=== PATIENT | male | born 1950 | race Caucasian/White ===

== ENCOUNTER → 2016-11-06 16:33 | Outpatient (CLI) | payer MEDICARE ==
[2015-02-08 08:53] VITALS: BMI 25.9
[~2016-11-06 16:33] MED LIST: ALDACTONE25 MG PO; DECADRON4 MG PO; ELIQUIS2.5 MG PO; ELIQUIS5 MG PO; INDERAL 40 MG T40 MG PO; K-DUR20 MEQ PO; MAG-OX 400 MG400 MG PO; NORVASC5 MG PO
[2016-11-06 20:43] LABS: BASOPHILS 0.1 % (0.0-2.0); EOSINOPHILS 1.5 % (0-7); HEMATOCRIT 42.4 % (42.0-54.0); HEMOGLOBIN 14.4 g/dL (13.5-17.5); IMMATURE GRANULOCYTES 0.8 % (0-5); LYMPHOCYTES 19.2 % (15-50); MEAN PLATELET VOLUME 11.1 fL (7.4-10.4); MONOCYTES 9.2 % (2-11); NEUTROPHILS 69.2 % (40-80); PLATELET COUNT 287 10x3/uL (130-400); RBC 4.37 10x6/uL (4.20-6.10); RDW 12.9 % (11.5-14.5); WBC 13.4 10x3/uL (4.8-10.8)
[2016-11-06 21:16] LABS: ALBUMIN 3.9 g/dL (3.4-5.0); ANION GAP 17.7 mmol/L (8-16); BILIRUBIN - TOTAL 0.52 mg/dL (0.2-1.3); CALCIUM 9.6 mg/dL (8.5-10.1); CARBON DIOXIDE 24.7 mmol/L (21.0-32.0); CREATININE - SERUM 1.1 mg/dL (0.6-1.3); POTASSIUM - SERUM 4.4 mmol/L (3.5-5.1); PROTEIN - SERUM 7.9 g/dL (6.4-8.2)
== END | disposition home or self-care (01) ==
LOC: D.LABREF 16:33
PROVIDERS: Student in an Organized Health Care Education/Training Program
DX: B39.9 Histoplasmosis, unspecified (principal); Z79.899 Other long term (current) drug therapy

== ENCOUNTER → 2016-12-18 20:31 | Outpatient (CLI) | payer MEDICARE ==
[2015-02-08 08:53] VITALS: BMI 25.9
[2016-12-18 21:32] LABS: BASOPHILS 0.2 % (0.0-2.0); EOSINOPHILS 1.9 % (0-7); HEMATOCRIT 42.9 % (42.0-54.0); HEMOGLOBIN 14.2 g/dL (13.5-17.5); IMMATURE GRANULOCYTES 0.8 % (0-5); LYMPHOCYTES 18.4 % (15-50); MCH 32.4 pg (26.0-34.0); MCHC 33.1 g/dL (31.0-37.0); MCV 97.9 fL (80.0-100.0); MEAN PLATELET VOLUME 10.9 fL (7.4-10.4); MONOCYTES 9.4 % (2-11); NEUTROPHILS 69.3 % (40-80); PLATELET COUNT 266 10x3/uL (130-400); RBC 4.38 10x6/uL (4.20-6.10); WBC 12.3 10x3/uL (4.8-10.8)
[2016-12-18 21:44] LABS: HEMOGLOBIN A1C 7.2 % (4.8-6.0)
[2016-12-18 21:45] LABS: ALBUMIN 3.9 g/dL (3.4-5.0); ANION GAP 19.5 mmol/L (8-16); BILIRUBIN - TOTAL 0.56 mg/dL (0.2-1.3); CALCIUM 9.1 mg/dL (8.5-10.1); CARBON DIOXIDE 21.8 mmol/L (21.0-32.0); CREATININE - SERUM 1.2 mg/dL (0.6-1.3); POTASSIUM - SERUM 4.3 mmol/L (3.5-5.1)
== END | disposition home or self-care (01) ==
LOC: D.LABREF 20:31
PROVIDERS: Student in an Organized Health Care Education/Training Program
DX: Z51.81 Encounter for therapeutic drug level monitoring (principal); Z79.899 Other long term (current) drug therapy; Z13.1 Encounter for screening for diabetes mellitus; M79.1 Myalgia; B39.4 Histoplasmosis capsulati, unspecified

== ENCOUNTER → 2017-01-07 10:09 | Outpatient (CLI) | payer MEDICARE ==
[2015-02-08 08:53] VITALS: BMI 25.9
--- NOTE | 2017-01-07 13:31 | NUR ---
Nutrition education for DMT2: Pt reports he eats very erratic most of the time. Pt has been drinking a lot of juice but has now stopped and is drinking water. Pt has been skipping breakfast to try and lose weight. Pt likes nonstarchy vegetables and does eat them but not every day. Pt tries to use an exercise bike daily when he can. Ht: 6'1" Wt: 250# IBW: 184# +/-10% BMI: 33.0 Reviewed CHO containing foods and the affect CHO have on glucose. Reviewed portion sizes of common CHO foods. Stressed the importance of never skipping meals and eating meals about the same time every day. Reviewed sample menus and plate method of meal planning. Pt having difficulty understanding CHO counting. RDN advised to eat at least 3 meals and 1 snack every day but only eat half of what he would normally eat until he read the diet material to understand more about CHO counting. Pt advised that practice will help meal planning become easier. Advised pt that losing at least 25# and keeping it off would help with glucose control. Provided pt with printed diet information and RDN name and phone number. RDN will be available if needed.
== END | disposition home or self-care (01) ==
LOC: D.FANS 10:09
DX: E11.9 Type 2 diabetes mellitus without complications (principal)

== ENCOUNTER → 2017-02-03 10:58 | Outpatient (CLI) | payer MEDICARE ==
[2015-02-08 08:53] VITALS: BMI 25.9
== END | disposition home or self-care (01) ==
LOC: D.MRI 10:58
DX: B39.9 Histoplasmosis, unspecified (principal)

== ENCOUNTER → 2017-02-07 12:55 | Outpatient (CLI) | payer MEDICARE ==
[2015-02-08 08:53] VITALS: BMI 25.9
[2017-02-07 15:56] LABS: BASOPHILS 0.1 % (0-2); EOSINOPHILS 0.8 % (0-7); HEMATOCRIT 41.8 % (42.0-54.0); IMMATURE GRANULOCYTES 0.4 % (0-5); LYMPHOCYTES 9.8 % (15-50); MCH 32.7 pg (26.0-34.0); MCHC 33.5 g/dL (31.0-37.0); MCV 97.7 fL (80.0-100.0); MEAN PLATELET VOLUME 11.3 fL (7.4-10.4); MONOCYTES 8.6 % (2-11); NEUTROPHILS 80.3 % (40-80); PLATELET COUNT 262 10x3/uL (130-400); RBC 4.28 10x6/uL (4.20-6.10); RDW 13.3 % (11.5-14.5); WBC 14.4 10x3/uL (4.8-10.8)
[2017-02-07 16:16] LABS: ALBUMIN 3.7 g/dL (3.4-5.0); ANION GAP 19.9 mmol/L (8-16); BILIRUBIN - TOTAL 0.73 mg/dL (0.2-1.3); CALCIUM 9.8 mg/dL (8.5-10.1); CARBON DIOXIDE 20.3 mmol/L (21.0-32.0); CREATININE - SERUM 1.3 mg/dL (0.6-1.3); POTASSIUM - SERUM 4.2 mmol/L (3.5-5.1); PROTEIN - SERUM 7.8 g/dL (6.4-8.2)
== END | disposition home or self-care (01) ==
LOC: D.LABREF 12:55
PROVIDERS: Student in an Organized Health Care Education/Training Program
DX: B39.9 Histoplasmosis, unspecified (principal); Z79.2 Long term (current) use of antibiotics

== ENCOUNTER → 2017-02-26 08:25 | Outpatient (CLI) | payer MEDICARE ==
[2015-02-08 08:53] VITALS: BMI 25.9
--- NOTE | 2017-02-26 12:38 | NUR ---
Nutrition follow-up education for DMT2: Pt states his glucose numbers are worse now than last month. However, when I questioned him about what he has been doing, he obviously was not following my recommendations from last month. Pt is still eating meals at erratic times and is not paying any attention to portion size. Pt may eat all CHO at one meal and the next meal eat only protein foods. Pt will also eat only a large head of lettuce and tomatoes or a whole package of hot dogs! Pt will not stop talking and listen to me. Reviewed CHO counting again with emphasis on portion size of common CHO foods. Reviewed sample menus with emphasis on CHO. Discussed the importance of eating meals and snacks at consistent times every day. Answered all patients questions. Provided pt with additional diet information and RDN name and phone number. Thank you for the consult.
== END | disposition home or self-care (01) ==
LOC: D.FANS 08:25
DX: E11.9 Type 2 diabetes mellitus without complications (principal)

== ENCOUNTER → 2017-03-18 10:55 | Outpatient (CLI) | payer MEDICARE ==
[2015-02-08 08:53] VITALS: BMI 25.9
[2017-03-18 13:33] LABS: BASOPHILS 0.2 % (0-2); EOSINOPHILS 1.5 % (0-7); HEMATOCRIT 41.3 % (42.0-54.0); HEMOGLOBIN 13.9 g/dL (13.5-17.5); IMMATURE GRANULOCYTES 0.8 % (0-5); LYMPHOCYTES 18.1 % (15-50); MCH 32.3 pg (26.0-34.0); MCHC 33.7 g/dL (31.0-37.0); MCV 95.8 fL (80.0-100.0); MEAN PLATELET VOLUME 11.2 fL (7.4-10.4); MONOCYTES 10.4 % (2-11); PLATELET COUNT 298 10x3/uL (130-400); RBC 4.31 10x6/uL (4.20-6.10); RDW 12.9 % (11.5-14.5); WBC 11.4 10x3/uL (4.8-10.8)
[2017-03-18 13:47] LABS: ALBUMIN 3.6 g/dL (3.4-5.0); ANION GAP 17.5 mmol/L (8-16); APPEARANCE CLEAR (CLEAR); BILIRUBIN - TOTAL 0.36 mg/dL (0.2-1.3); CALCIUM 8.6 mg/dL (8.5-10.1); CARBON DIOXIDE 23.2 mmol/L (21.0-32.0); COLOR YELLOW (YELLOW); CREATININE - SERUM 1.2 mg/dL (0.6-1.3); LEUKOCYTE ESTERASE NEGATIVE (NEGATIVE); NITRITE NEGATIVE (NEGATIVE); POTASSIUM - SERUM 4.7 mmol/L (3.5-5.1); PROTEIN NEGATIVE (NEGATIVE); PROTEIN - SERUM 7.6 g/dL (6.4-8.2)
[2017-03-18 13:48] LABS: BILIRUBIN NEGATIVE (NEGATIVE); GLUCOSE NEGATIVE (NEGATIVE); KETONE NEGATIVE (NEGATIVE); UROBILINOGEN NORMAL (NORMAL)
== END | disposition home or self-care (01) ==
LOC: D.LABREF 10:55
PROVIDERS: Student in an Organized Health Care Education/Training Program
DX: Z51.81 Encounter for therapeutic drug level monitoring (principal); Z79.899 Other long term (current) drug therapy; B39.9 Histoplasmosis, unspecified

== ENCOUNTER → 2017-05-16 18:00 | Outpatient (CLI) | payer MEDICARE ==
[2015-02-08 08:53] VITALS: BMI 25.9
[2017-05-16 19:29] LABS: BASOPHILS 0.2 % (0-2); EOSINOPHILS 1.2 % (0-7); HEMOGLOBIN 14.6 g/dL (13.5-17.5); IMMATURE GRANULOCYTES 0.6 % (0-5); LYMPHOCYTES 19.9 % (15-50); MCHC 33.2 g/dL (31.0-37.0); MCV 96.5 fL (80.0-100.0); MEAN PLATELET VOLUME 11.4 fL (7.4-10.4); MONOCYTES 7.6 % (2-11); NEUTROPHILS 70.5 % (40-80); PLATELET COUNT 294 10x3/uL (130-400); RBC 4.56 10x6/uL (4.20-6.10); RDW 13.7 % (11.5-14.5); WBC 10.8 10x3/uL (4.8-10.8)
[2017-05-16 19:36] LABS: HEMOGLOBIN A1C 6.2 % (4.8-6.0)
[2017-05-16 19:41] LABS: ALBUMIN 4.1 g/dL (3.4-5.0); ANION GAP 18.3 mmol/L (8-16); BILIRUBIN - TOTAL 0.5 mg/dL (0.2-1.3); CALCIUM 9.2 mg/dL (8.5-10.1); CARBON DIOXIDE 22.3 mmol/L (21.0-32.0); CREATININE - SERUM 1.1 mg/dL (0.6-1.3); POTASSIUM - SERUM 4.6 mmol/L (3.5-5.1)
== END | disposition home or self-care (01) ==
LOC: D.LABREF 18:00
PROVIDERS: Student in an Organized Health Care Education/Training Program
DX: B39.9 Histoplasmosis, unspecified (principal); E11.9 Type 2 diabetes mellitus without complications; Z51.81 Encounter for therapeutic drug level monitoring; Z79.899 Other long term (current) drug therapy

== ENCOUNTER → 2017-07-18 11:33 | Outpatient (CLI) | payer MEDICARE ==
[2015-02-08 08:53] VITALS: BMI 25.9
[2017-07-18 12:46] LABS: BASOPHILS 0.1 % (0-2); EOSINOPHILS 1.2 % (0-7); HEMATOCRIT 43.1 % (42.0-54.0); HEMOGLOBIN 14.6 g/dL (13.5-17.5); IMMATURE GRANULOCYTES 0.6 % (0-5); LYMPHOCYTES 19.7 % (15-50); MCH 31.9 pg (26.0-34.0); MCHC 33.9 g/dL (31.0-37.0); MCV 94.1 fL (80.0-100.0); MEAN PLATELET VOLUME 11.2 fL (7.4-10.4); MONOCYTES 8.3 % (2-11); NEUTROPHILS 70.1 % (40-80); PLATELET COUNT 346 10x3/uL (130-400); RBC 4.58 10x6/uL (4.20-6.10); RDW 13.2 % (11.5-14.5); WBC 12.4 10x3/uL (4.8-10.8)
[2017-07-18 13:01] LABS: ALBUMIN 3.9 g/dL (3.4-5.0); ANION GAP 20.2 mmol/L (8-16); BILIRUBIN - TOTAL 0.42 mg/dL (0.2-1.3); CALCIUM 9.3 mg/dL (8.5-10.1); CARBON DIOXIDE 19.6 mmol/L (21.0-32.0); CREATININE - SERUM 1.2 mg/dL (0.6-1.3); POTASSIUM - SERUM 4.8 mmol/L (3.5-5.1); PROTEIN - SERUM 8.2 g/dL (6.4-8.2)
== END | disposition home or self-care (01) ==
LOC: D.LABREF 11:33
PROVIDERS: Student in an Organized Health Care Education/Training Program
DX: B39.9 Histoplasmosis, unspecified (principal); Z51.81 Encounter for therapeutic drug level monitoring; Z79.899 Other long term (current) drug therapy

== ENCOUNTER → 2017-09-08 10:21 | Outpatient (CLI) | payer MEDICARE ==
[2015-02-08 08:53] VITALS: BMI 25.9
== END | disposition home or self-care (01) ==
LOC: D.MRI 10:21
DX: B39.9 Histoplasmosis, unspecified (principal)

== ENCOUNTER → 2017-09-12 10:58 | Outpatient (CLI) | payer MEDICARE ==
[2015-02-08 08:53] VITALS: BMI 25.9
[2017-09-12 14:07] LABS: BASOPHILS 0.1 % (0-2); EOSINOPHILS 0.7 % (0-7); HEMATOCRIT 46.2 % (42.0-54.0); HEMOGLOBIN 15.8 g/dL (13.5-17.5); IMMATURE GRANULOCYTES 1.5 % (0-5); LYMPHOCYTES 19.5 % (15-50); MCH 32.6 pg (26.0-34.0); MCHC 34.2 g/dL (31.0-37.0); MCV 95.5 fL (80.0-100.0); MEAN PLATELET VOLUME 10.9 fL (7.4-10.4); MONOCYTES 7.5 % (2-11); NEUTROPHILS 70.7 % (40-80); PLATELET COUNT 342 10x3/uL (130-400); RBC 4.84 10x6/uL (4.20-6.10); RDW 13.6 % (11.5-14.5); WBC 13.4 10x3/uL (4.8-10.8)
[2017-09-12 14:14] LABS: HEMOGLOBIN A1C 6.3 % (4.8-6.0)
[2017-09-12 14:26] LABS: ALBUMIN 4.3 g/dL (3.4-5.0); ANION GAP 17.2 mmol/L (8-16); BILIRUBIN - TOTAL 0.57 mg/dL (0.2-1.3); CALCIUM 10.1 mg/dL (8.5-10.1); CARBON DIOXIDE 25.4 mmol/L (21.0-32.0); CREATININE - SERUM 1.2 mg/dL (0.6-1.3); POTASSIUM - SERUM 4.6 mmol/L (3.5-5.1); PROTEIN - SERUM 8.3 g/dL (6.4-8.2)
== END | disposition home or self-care (01) ==
LOC: D.LABREF 10:58
PROVIDERS: Student in an Organized Health Care Education/Training Program
DX: B39.9 Histoplasmosis, unspecified (principal)

== ENCOUNTER → 2017-11-11 14:00 | Outpatient (CLI) | payer MEDICARE ==
[2015-02-08 08:53] VITALS: BMI 25.9
[2017-11-11 15:22] LABS: BASOPHILS 0.2 % (0-2); EOSINOPHILS 1.4 % (0-7); HEMOGLOBIN 14.4 g/dL (13.5-17.5); IMMATURE GRANULOCYTES 0.6 % (0-5); MCH 32.5 pg (26.0-34.0); MCHC 33.5 g/dL (31.0-37.0); MCV 97.1 fL (80.0-100.0); MEAN PLATELET VOLUME 11.3 fL (7.4-10.4); MONOCYTES 7.2 % (2-11); NEUTROPHILS 74.6 % (40-80); PLATELET COUNT 288 10x3/uL (130-400); RBC 4.43 10x6/uL (4.20-6.10); RDW 13.3 % (11.5-14.5); WBC 12.9 10x3/uL (4.8-10.8)
[2017-11-11 15:49] LABS: ANION GAP 16.7 mmol/L (8-16); BILIRUBIN - TOTAL 0.51 mg/dL (0.2-1.3); CALCIUM 9.5 mg/dL (8.5-10.1); CREATININE - SERUM 1.1 mg/dL (0.6-1.3); POTASSIUM - SERUM 4.7 mmol/L (3.5-5.1); PROTEIN - SERUM 7.9 g/dL (6.4-8.2)
== END | disposition home or self-care (01) ==
LOC: D.LABREF 14:00
PROVIDERS: Student in an Organized Health Care Education/Training Program
DX: Z51.81 Encounter for therapeutic drug level monitoring (principal); Z79.2 Long term (current) use of antibiotics; G06.0 Intracranial abscess and granuloma

== ENCOUNTER → 2018-01-13 10:22 | Outpatient (CLI) | payer MEDICARE ==
[2015-02-08 08:53] VITALS: BMI 25.9
[2018-01-13 12:00] LABS: BASOPHILS 0.2 % (0-2); EOSINOPHILS 1.8 % (0-7); HEMATOCRIT 42.1 % (42.0-54.0); HEMOGLOBIN 14.3 g/dL (13.5-17.5); IMMATURE GRANULOCYTES 1.3 % (0-5); LYMPHOCYTES 21.4 % (15-50); MCH 32.1 pg (26.0-34.0); MCV 94.4 fL (80.0-100.0); MEAN PLATELET VOLUME 10.8 fL (7.4-10.4); MONOCYTES 9.6 % (2-11); NEUTROPHILS 65.7 % (40-80); PLATELET COUNT 254 10x3/uL (130-400); RBC 4.46 10x6/uL (4.20-6.10); RDW 12.9 % (11.5-14.5); WBC 11.9 10x3/uL (4.8-10.8)
[2018-01-13 12:25] LABS: ALBUMIN 3.7 g/dL (3.4-5.0); ALKALINE PHOSPHATASE 78 U/L (46-116); ALT (SGPT) 37 U/L (10-68); BILIRUBIN - TOTAL 0.41 mg/dL (0.2-1.3); CALC OSMOLALITY 270 mosm/kg (275-300); CALCIUM 8.8 mg/dL (8.5-10.1); CARBON DIOXIDE 21.9 mmol/L (21.0-32.0); CHLORIDE - SERUM 99 mmol/L (98-107); GLUCOSE 112 mg/dL (74-106); POTASSIUM - SERUM 5.2 mmol/L (3.5-5.1); PROTEIN - SERUM 7.8 g/dL (6.4-8.2); SODIUM 133 mmol/L (136-145); UREA NITROGEN 24 mg/dL (7-18); eGFR NON AFRICAN AMERICAN 79 mL/min (90-120)
== END | disposition home or self-care (01) ==
LOC: D.LABREF 10:22
PROVIDERS: Student in an Organized Health Care Education/Training Program
DX: B39.9 Histoplasmosis, unspecified (principal); Z51.81 Encounter for therapeutic drug level monitoring; Z79.899 Other long term (current) drug therapy

== ENCOUNTER → 2018-01-14 09:10 | Outpatient (CLI) | payer MEDICARE ==
[2015-02-08 08:53] VITALS: BMI 25.9
[2018-01-14 10:02] LABS: ALBUMIN 3.7 g/dL (3.4-5.0); BILIRUBIN - TOTAL 0.5 mg/dL (0.2-1.3); CALCIUM 9.2 mg/dL (8.5-10.1); CARBON DIOXIDE 22.3 mmol/L (21.0-32.0); CREATININE - SERUM 1.2 mg/dL (0.6-1.3); POTASSIUM - SERUM 5.3 mmol/L (3.5-5.1); PROTEIN - SERUM 7.7 g/dL (6.4-8.2)
== END | disposition home or self-care (01) ==
LOC: D.LABREF 09:10 → D.LDO 09:10
PROVIDERS: Student in an Organized Health Care Education/Training Program
DX: R79.9 Abnormal finding of blood chemistry, unspecified (principal)

== ENCOUNTER 2018-04-06 05:36 | Day surgery (SDC) | payer MEDICARE ==
[~2018-04-06] VITALS: Ht 190.5 cm; Wt 117.0 kg
--- NOTE | ~2018-04-06 | OP ---
PATIENT NAME: ERENDIRA GONZALEZ MEDICAL RECORD: [id number] :50 LOCATION:[facility] ADMISSION DATE: SURGEON: LOGAN MOORE MD DATE OF OPERATION: 04/06/2018 PREOPERATIVE DIAGNOSIS: Recurrent scrotal abscess. 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 PROCEDURE: Excisional debridement with marsupialization of scrotal fistula. The dimensions of debridement, including margins, measured 7.5 x 3.8 cm. The debridement included skin and subcutaneous tissue as well as granulation tissue. SURGEON: Logan Moore MD DOCTOR CHIROPRACTIC: None. BLOOD LOSS: Minimal. ANESTHESIA: General. COMPLICATIONS: None. I saw the patient in the holding area. He then discussed the fistula in the area of erythema, which appeared to run toward the anus from the fistulous opening, which was on the left hemiscrotum. The area of induration ran down the left side of the peritoneum just to the left of the median raphe. OPERATIVE COURSE: The patient was conveyed the operating room electively on 04/06/2018. General anesthesia was induced by the anesthesia staff. The patient was placed in the lithotomy position. The genitals and perineum were sterilely prepped and draped. I want to ensure that the urethra was not injured during the operation and for this reason I placed a well-lubricated large red rubber Doherty catheter down through the urethra and drained the patient's bladder. I then kept it in place. There was a secondary opening to this fistula and this was near the median raphe. I advanced a fistula probe up through this and this exited at the left hemiscrotum where the patient has had drainage from recurrent abscess. Over the fistula probe, I opened the fistula. This extended down further caudad. I extended my incision for the caudad as well. I then curetted out the granulation tract. Cultures were obtained. At no time was there any apparent injury to the urethra and we did not identify any red rubber Doherty catheter. I continued my curettage. Hemostasis was achieved with electrocautery. I then marsupialized the wound with a running locking 3-0 Vicryl Rapide suture. This has been a sharp debridement. Hemostasis was achieved with electrocautery as well as with Dudley. A sterile dressing was applied. The patient was then extubated and conveyed to post-anesthesia care unit where he was in stable condition. I will be dismissed home on hydrocodone for pain. I will see him in the office in 2 to 3 weeks. OPERATIVE REPORT [id number] LISAERENDIRA FRANSISCO TRANSINT:[id number] Voice Confirmation ID: [id number] DOCUMENT ID: [id number] LOGAN MOORE MD at 1023 CC: [id number] DICTATION DATE: 04/06/18 1126 TOOLROOM CHECKER: 04/06/18 1220 [facility] 04/06/[address] [address]
[~2018-04-06 05:36] MED LIST changes: +BACTRIM DS TABL1 TAB PO
[2018-04-06 06:26] LABS: HEMATOCRIT 41.9 % (42.0-54.0); MCH 31.5 pg (26.0-34.0); MCHC 33.4 g/dL (31.0-37.0); MCV 94.4 fL (80.0-100.0); MEAN PLATELET VOLUME 10.4 fL (7.4-10.4); RBC 4.44 10x6/uL (4.20-6.10); RDW 13.8 % (11.5-14.5); WBC 10.3 10x3/uL (4.8-10.8)
[2018-04-06 06:31] LABS: APPEARANCE CLEAR (CLEAR); BILIRUBIN NEGATIVE (NEGATIVE); COLOR YELLOW (YELLOW); GLUCOSE NEGATIVE (NEGATIVE); KETONE NEGATIVE (NEGATIVE); NITRITE NEGATIVE (NEGATIVE); PROTEIN NEGATIVE (NEGATIVE); UROBILINOGEN NORMAL (NORMAL)
[2018-04-06 06:44] LABS: ANION GAP 12.3 mmol/L (8-16); CALCIUM 9.4 mg/dL (8.5-10.1); CARBON DIOXIDE 28.3 mmol/L (21.0-32.0); CREATININE - SERUM 1.2 mg/dL (0.6-1.3); POTASSIUM - SERUM 4.6 mmol/L (3.5-5.1)
[2018-04-06] MEDS ORDERED: SPORANOX100 MG PO (06:57)
[2018-04-06 07:13] VITALS: BP 135/56; Ht 190.5 cm; Wt 117.0 kg
== END 2018-04-06 12:05 | disposition home or self-care (01) ==
LOC: D.OPS 05:36 → D.PAN 08:00 → D.OPS 08:00
PROVIDERS: Anesthesiology
DX: L02.214 Cutaneous abscess of groin (principal); N50.89 Other specified disorders of the male genital organs; Z01.812 Encounter for preprocedural laboratory examination

== ENCOUNTER → 2018-04-14 09:32 | Outpatient (CLI) | payer MEDICARE ==
[2018-04-06 07:13] VITALS: BMI 32.3
[~2018-04-14 09:32] MED LIST changes: +SPORANOX100 MG PO
== END | disposition home or self-care (01) ==
LOC: D.MRI 02-13 11:00
DX: B39.9 Histoplasmosis, unspecified (principal)

== ENCOUNTER → 2018-04-21 13:45 | Outpatient (CLI) | payer MEDICARE ==
[2018-04-06 07:13] VITALS: BMI 32.3
[2018-04-21 14:35] LABS: ALBUMIN 3.4 g/dL (3.4-5.0); BILIRUBIN - DIRECT 0.08 mg/dL (0.00-0.30); BILIRUBIN - INDIRECT 0.25 mg/dL (0.00-1.00); BILIRUBIN - TOTAL 0.33 mg/dL (0.2-1.3); PROTEIN - SERUM 7.2 g/dL (6.4-8.2)
== END | disposition home or self-care (01) ==
LOC: D.LABREF 13:45
PROVIDERS: Student in an Organized Health Care Education/Training Program
DX: B39.9 Histoplasmosis, unspecified (principal)

== ENCOUNTER → 2018-05-21 13:39 | Outpatient (CLI) | payer MEDICARE ==
[2018-04-06 07:13] VITALS: BMI 32.3
[2018-05-21 15:44] LABS: ALBUMIN 3.5 g/dL (3.4-5.0); BILIRUBIN - DIRECT 0.13 mg/dL (0.00-0.30); BILIRUBIN - INDIRECT 0.22 mg/dL (0.00-1.00); BILIRUBIN - TOTAL 0.35 mg/dL (0.2-1.3); PROTEIN - SERUM 7.5 g/dL (6.4-8.2)
== END | disposition home or self-care (01) ==
LOC: D.LABREF 13:39
PROVIDERS: Student in an Organized Health Care Education/Training Program
DX: B39.9 Histoplasmosis, unspecified (principal)

== ENCOUNTER 2018-06-11 09:38 | Inpatient (IN) | payer MEDICARE ==
[~2018-06-11] VITALS: Ht 190.5 cm; Wt 15.4 kg
--- NOTE | ~2018-06-11 | MORECARE ---
CASE MANAGEMENT DISCHARGE SUMMARY PATIENT: ERENDIRA GONZALEZ UNIT: [id number] ADM DATE: 06/11/18 AGE: 68 : 50 SEX: M ROOM/BED: D.2110 AUTHOR: FLOYD,DOC PHYSICIAN: REFERRING PHYSICIAN: GLADYS THOMAS MD DATE OF SERVICE: 06/16/18 Discharge Plan Patient Name: ERENDIRA GONZALEZ [facility] [facility] 1950 Planned Disposition: Inpatient Rehab Anticipated Discharge Date: 06/17/18 Discharge Date: Expected LOS: 6 Initial Reviewer: [email or web address] Initial Review Date: 06/16/2018 Generated: 06/16/18 5:46 pm Comments DCP- Discharge Planning Updated by [id number]: Hemant Acuna on 06/16/18 3:[address] Patient Name: ERENDIRA GONZALEZ Admission Status: ER Accout number: [id number] Admission Date: 06-11-2018 : 1950 Admission Diagnosis:PELVIC AND PERINEAL PAIN Attending: GLADYS THOMAS Current LOS: 5 Anticipated DC Date: 06-17-2018 Planned Disposition: Inpatient Rehab Primary Insurance: MEDICARE A & B PLANNED EXTERNAL PROVIDER: [facility] INPATIENT REH[facility] Discharge Planning Comments: CM RECEIVED ORDER FOR INPATIENT REHAB PRESCREENING. CM MET WITH PT IN ROOM TO DISCUSS DISCHARGE PLANNING AND NEEDS. PT REPORTS LIVING AT HOME INDEPENDENTLY AND ALONE. PT HAS WALKER AND BLOOD PRESSURE MONITOR AT HOME WITH NO MEDICAL EQUIPMENT PROVIDER, PT HAS PERSONAL CARE WITH [facility] [address], 2 DAYS PER WEEK, 4 HOURS PER DAY BUT IS CERTIFIED BY MEDICAID FOR UP TO 18 HOURS PER WEEK. CM DISCUSSED AVAILABILITY OF HOME HEALTH, REHAB SERVICES AND MEDICAL EQUIPMENT WELL INPATIENT REHAB PROVIDERS AND LOCATIONS. PT WOULD LIKE REHAB AT [place] PRIOR TO RETURNING HOME AND FEELS HE CAN PARTICIPATE WITH THREE HOURS OF PROGRESSIVE THERAPY. PT REPORTS FAMILY WILL PICK HIM UP FOR DISCHARGE HOME. IMPORTANT MESSAGE FROM MEDICARE PROVIDED AND EXPLAINED. CM WAITING MEDICAL STABILITY AND ADMISSION DETERMINATION FROM [facility] INPATIENT [facility]. Rn Transitional: Hemant Acuna DCPIA - Discharge Planning Initial Assessment Updated by [id number]: Hemant Acuna on 06/16/18 4:40 pm * Is the patient Alert and Oriented? Yes * How many steps to enter\exit or inside your home? 15 * PCP DR. THOMAS * Pharmacy [facility] [place] * Preadmission Environment Home Alone * ADLs Independent * Equipment Other Walker * Other Equipment NO MEDICAL EQUIPMENT PROVIDER PREFERENCE * List name and contact numbers for known caregivers / representatives who currently or will assist patient after discharge: ANDERSON GONZALEZ, SON, DONTAE ARNOLD, DTR, * Verbal permission to speak to the caregivers and representatives has been obtained from the patient. N/A * Community resources currently utilized Private Duty Care * Please name any agencies selected above. [facility] [address], 2 DAYS PER WEEK, 4 HOURS DAILY PERSONAL CARE. * Additional services required to return to the preadmission environment? No * Can the patient safely return to the preadmission environment? Yes * Has this patient been hospitalized within the prior 30 days at any hospital? No Coverage Notice Reviewer: [id number] Haylee Acuna Notice Issued Date-Time: 06/16/2018 14:25 Notice Type: IM Discharge Notice Notice Delivered To: Patient Relationship to Patient: Equity Director Name: Delivery Method: HAND - Hand Delivered Allie Days: Prior Verbal Notification: Recipient Understood Notice: Yes Recipient Signature: Yes Med Rec Note Co-signed by Attending: Coverage Notice Comment: Last DP export: 06/16/18 3:36 Patient Name: ERENDIRA GONZALEZ Page 11754 at 1647 All edits/amendments must be made on the electronic document DICTATION DATE: 06/16/181645 BAG REPAIRER: WENDY 06/16/181645 RPT#: [id number] DC DATE: STATUS: ADM IN [facility] [address] [place] [address] END OF REPORT
--- NOTE | ~2018-06-11 | OP ---
PATIENT NAME: ERENDIRA GONZALEZ MEDICAL RECORD: [id number] :50 LOCATION:D.M2 D.2109 ADMISSION DATE:06/11/18 SURGEON: LOGAN MOORE MD DATE OF OPERATION: 06/13/2018 PREOPERATIVE DIAGNOSIS: Perineal abscess. POSTOPERATIVE DIAGNOSES: Perineal abscess with no evidence of an anal fistula or rectal fistula. PROCEDURE: Anal evaluation under anesthesia with excisional debridement of perineal wound with marsupialization and packing of the wound. Dimensions of the sharp excisional debridement, including margins, measured 6.2 x 4.0 cm included skin and subcutaneous tissue as well as abscess cavity. OPERATIVE COURSE: The patient was conveyed to the operating room electively on 06/13/2018. General anesthesia was induced by the anesthesia staff. The patient was placed in the lithotomy position. Cultures were obtained. The anus and perianal areas were sterilely prepped and draped. The patient's prior debridement of a scrotal sinus appears to have been well-healed. There was swelling between the scrotum and the anus and this area had been draining. There were several open areas as well. I inserted the U-shaped anal retractors within the anus. I then injected a combination of hydrogen peroxide and methylene blue through the largest open area. This mixture came out through several other open areas within the skin indicating some connection between this large open area, which was located superiorly and these other open areas. There was no flow of hydrogen peroxide or methylene blue into the anus or rectum and therefore no evidence of an anal or rectal fistula. Utilizing the scalpel, a sharp debridement was undertaken. The dimensions of the debridement are listed above. I debrided back to viable bleeding tissue. I curetted out the abscess cavity. At no time was there any apparent injury to the anal sphincters or to the ureter. Hemostasis was achieved with electrocautery. I irrigated with hydrogen peroxide. I then marsupialized the wound with a running-locking 3-0 Vicryl Rapide suture and then the wound was packed. A sterile dressing was applied. The patient was then extubated and conveyed to post-anesthesia care unit where he was in stable condition. TRANSINT:[id number] Voice Confirmation ID: [id number] DOCUMENT ID: [id number] LOGAN MOORE MD at 1708 CC: GLADYS THOMAS [id number] DICTATION DATE: 06/13/18 0936 FIELD SERVICE TECH: 06/13/18 1051 ADM IN [place] [id number] [place] [id number]
--- NOTE | ~2018-06-11 | MORECARE ---
CASE MANAGEMENT DISCHARGE SUMMARY PATIENT: ERENDIRA GONZALEZ UNIT: [id number] ADM DATE: 06/11/18 AGE: 68 : 50 SEX: M ROOM/BED: D.2110 AUTHOR: THUAN BARRIENTOS PHYSICIAN: REFERRING PHYSICIAN: GLADYS THOMAS MD DATE OF SERVICE: 06/17/18 Discharge Plan Patient Name: ERENDIRA GONZALEZ [facility]:[place] : 1950 Planned Disposition: Inpatient Rehab Anticipated Discharge Date: 06/17/18 Discharge Date: 06/17/2018 Expected LOS: 6 Initial Reviewer: [id number] Initial Review Date: 06/16/2018 Generated: 06/17/18 5:52 pm Comments DCP- Discharge Planning Updated by [id number]: Hemant Acuna on 06/17/18 10:[address] Patient Name: ERENDIRA GONZALEZ Encounter No: [id number] : 1950 Primary Insurance: MEDICARE A & B Anticipated DC Date: 06-17-2018 Planned Disposition: Inpatient Rehab External Planned Provider: [facility] DCP follow-up note: CM RECEIVED DISCHARGE ORDER, SPOKE TO MARGIE OF INPATIENT REHAB, THEY WILL COMPLETE SCREENING TODAY AND PLAN TO ACCEPT PT TODAY FOR REHAB. PT NOTIFIED, IN AGREEMENT WITH DISCHARGE TO INPATIENT REHAB. [facility] IN[facility] TO CONTACT MED 2 NURSE WITH ROOM NUMBER WHEN READY TO ACCEPT PT AND NURSE REPORT. Hemant Acuna, CASE MANAGEMENT DCP- Discharge Planning Updated by [id number]: Hemant Acuna on 06/16/18 3:[address] Patient Name: ERENDIRA GONZALEZ Admission Status: ER Accout number: [id number] Admission Date: 06-11-2018 : 1950 Admission Diagnosis:PELVIC AND PERINEAL PAIN Attending: GLADYS THOMAS Current LOS: 5 Anticipated DC Date: 06-17-2018 Planned Disposition: Inpatient Rehab Primary Insurance: MEDICARE A & B PLANNED EXTERNAL PROVIDER: [facility] IN[facility] Discharge Planning Comments: CM RECEIVED ORDER FOR INPATIENT REHAB PRESCREENING. CM MET WITH PT IN ROOM TO DISCUSS DISCHARGE PLANNING AND NEEDS. PT REPORTS LIVING AT HOME INDEPENDENTLY AND ALONE. PT HAS WALKER AND BLOOD PRESSURE MONITOR AT HOME WITH NO MEDICAL EQUIPMENT PROVIDER, PT HAS PERSONAL CARE WITH [facility] [employer], 2 DAYS PER WEEK, 4 HOURS PER DAY BUT IS CERTIFIED BY MEDICAID FOR UP TO 18 HOURS PER WEEK. CM DISCUSSED AVAILABILITY OF HOME HEALTH, REHAB SERVICES AND MEDICAL EQUIPMENT WELL INPATIENT REHAB PROVIDERS AND LOCATIONS. PT WOULD LIKE REHAB AT [place] PRIOR TO RETURNING HOME AND FEELS HE CAN PARTICIPATE WITH THREE HOURS OF PROGRESSIVE THERAPY. PT REPORTS FAMILY WILL PICK HIM UP FOR DISCHARGE HOME. IMPORTANT MESSAGE FROM MEDICARE PROVIDED AND EXPLAINED. CM WAITING MEDICAL STABILITY AND ADMISSION DETERMINATION FROM [facility]. Senior Sql Server Dba: Hemant Acuna DCPIA - Discharge Planning Initial Assessment Updated by [id number]: Hemant Acuna on 06/16/18 4:40 pm * Is the patient Alert and Oriented? Yes * How many steps to enter\exit or inside your home? 15 * PCP DR. THOMAS * Pharmacy [facility] [place] * Preadmission Environment Home Alone * ADLs Independent * Equipment Other Walker * Other Equipment NO MEDICAL EQUIPMENT PROVIDER PREFERENCE * List name and contact numbers for known caregivers / representatives who currently or will assist patient after discharge: ANDERSON GONZALEZ, SON, DONTAE ARNOLD, DTR, * Verbal permission to speak to the caregivers and representatives has been obtained from the patient. N/A * Community resources currently utilized Private Duty Care * Please name any agencies selected above. [facility] [employer], 2 DAYS PER WEEK, 4 HOURS DAILY PERSONAL CARE. * Additional services required to return to the preadmission environment? No * Can the patient safely return to the preadmission environment? Yes * Has this patient been hospitalized within the prior 30 days at any hospital? No Coverage Notice Reviewer: [id number] - Hemant Acuna Notice Issued Date-Time: 06/16/2018 14:25 Notice Type: IM Discharge Notice Notice Delivered To: Patient Relationship to Patient: Nub Card Tender Name: Delivery Method: HAND - Hand Delivered Allie Days: Prior Verbal Notification: Recipient Understood Notice: Yes Recipient Signature: Yes Med Rec Note Co-signed by Attending: Coverage Notice Comment: Last DP export: 06/17/18 10:37 Patient Name: ERENDIRA GONZALEZ Page 93825 at 1652 All edits/amendments must be made on the electronic document DICTATION DATE: 06/17/181650 MANAGER COSMETIC: WENDY 06/17/181650 RPT#: [id number] DC DATE:06/17/18 STATUS: DIS IN [facility] [address] [place] [address] END OF REPORT
--- NOTE | ~2018-06-11 | MORECARE ---
CASE MANAGEMENT DISCHARGE SUMMARY PATIENT: ERENDIRA GONZALEZ UNIT: [id number] ADM DATE: 06/11/18 AGE: 68 : 50 SEX: M ROOM/BED: D.2110 AUTHOR: THUAN BARRIENTOS PHYSICIAN: REFERRING PHYSICIAN: GLADYS THOMAS MD DATE OF SERVICE: 06/17/18 Discharge Plan Patient Name: ERENDIRA GONZALEZ Facility: [facility]:[place] : 1950 Planned Disposition: Inpatient Rehab Anticipated Discharge Date: 06/17/18 Discharge Date: Expected LOS: 6 Initial Reviewer: [id number] Initial Review Date: 06/16/2018 Generated: 06/17/18 12:37 pm Comments DCP- Discharge Planning Updated by [email or web address]: Hemant Acuna on 06/17/18 10:[address] Patient Name: ERENDIRA GONZALEZ Encounter No: [id number] : 1950 Primary Insurance: MEDICARE A & B Anticipated DC Date: 06-17-2018 Planned Disposition: Inpatient Rehab External Planned Provider: [facility] INPAT[facility] RE[facility] DCP follow-up note: CM RECEIVED DISCHARGE ORDER, SPOKE TO MARGIE OF INPATIENT REHAB, THEY WILL COMPLETE SCREENING TODAY AND PLAN TO ACCEPT PT TODAY FOR REHAB. PT NOTIFIED, IN AGREEMENT WITH DISCHARGE TO INPATIENT REHAB. [facility] INPATIENT REHAB TO CONTACT MED 2 NURSE WITH ROOM NUMBER WHEN READY TO ACCEPT PT AND NURSE REPORT. Hemant Acuna CASE MANAGEMENT DCP- Discharge Planning Updated by [id number]: Hemant Acuna on 06/16/18 3:[address] Patient Name: ERENDIRA GONZALEZ Admission Status: ER Accout number: [id number] Admission Date: 06-11-2018 : 1950 Admission Diagnosis:PELVIC AND PERINEAL PAIN Attending: GLADYS THOMAS Current LOS: 5 Anticipated DC Date: 06-17-2018 Planned Disposition: Inpatient Rehab Primary Insurance: MEDICARE A & B PLANNED EXTERNAL PROVIDER: [facility] IN[facility] Discharge Planning Comments: CM RECEIVED ORDER FOR INPATIENT REHAB PRESCREENING. CM MET WITH PT IN ROOM TO DISCUSS DISCHARGE PLANNING AND NEEDS. PT REPORTS LIVING AT HOME INDEPENDENTLY AND ALONE. PT HAS WALKER AND BLOOD PRESSURE MONITOR AT HOME WITH NO MEDICAL EQUIPMENT PROVIDER, PT HAS PERSONAL CARE WITH [facility], 2 DAYS PER WEEK, 4 HOURS PER DAY BUT IS CERTIFIED BY MEDICAID FOR UP TO 18 HOURS PER WEEK. CM DISCUSSED AVAILABILITY OF HOME HEALTH, REHAB SERVICES AND MEDICAL EQUIPMENT WELL INPATIENT REHAB PROVIDERS AND LOCATIONS. PT WOULD LIKE REHAB AT [place] PRIOR TO RETURNING HOME AND FEELS HE CAN PARTICIPATE WITH THREE HOURS OF PROGRESSIVE THERAPY. PT REPORTS FAMILY WILL PICK HIM UP FOR DISCHARGE HOME. IMPORTANT MESSAGE FROM MEDICARE PROVIDED AND EXPLAINED. CM WAITING MEDICAL STABILITY AND ADMISSION DETERMINATION FROM [facility] INPAT[facility] RE[facility]. Jute Bag Sewer: Hemant Acuna DCPIA - Discharge Planning Initial Assessment Updated by [id number]: Hemant Acuna on 06/16/18 4:40 pm * Is the patient Alert and Oriented? Yes * How many steps to enter\exit or inside your home? 15 * PCP DR. THOMAS * Pharmacy [facility] [place] * Preadmission Environment Home Alone * ADLs Independent * Equipment Other Walker * Other Equipment NO MEDICAL EQUIPMENT PROVIDER PREFERENCE * List name and contact numbers for known caregivers / representatives who currently or will assist patient after discharge: ANDERSON GONZALEZ, SON, DONTAE ARNOLD, DTR, * Verbal permission to speak to the caregivers and representatives has been obtained from the patient. N/A * Community resources currently utilized Private Duty Care * Please name any agencies selected above. [facility] [employer], 2 DAYS PER WEEK, 4 HOURS DAILY PERSONAL CARE. * Additional services required to return to the preadmission environment? No * Can the patient safely return to the preadmission environment? Yes * Has this patient been hospitalized within the prior 30 days at any hospital? No Coverage Notice Reviewer: [id number] - Hemant Acuna Notice Issued Date-Time: 06/16/2018 14:25 Notice Type: IM Discharge Notice Notice Delivered To: Patient Relationship to Patient: Bindery Helper Name: Delivery Method: HAND - Hand Delivered Allie Days: Prior Verbal Notification: Recipient Understood Notice: Yes Recipient Signature: Yes Med Rec Note Co-signed by Attending: Coverage Notice Comment: Last DP export: 06/16/18 3:47 Patient Name: ERENDIRA GONZALEZ Page 22203 at 1137 All edits/amendments must be made on the electronic document DICTATION DATE: 06/17/181136 RECREATION THERAPY TEACHER: DM 06/17/181136 RPT#: [id number] DC DATE: STATUS: ADM IN [facility] [address] [place] [address] END OF REPORT
--- NOTE | ~2018-06-11 | MORECARE ---
CASE MANAGEMENT DISCHARGE SUMMARY PATIENT: ERENDIRA GONZALEZ UNIT: [id number] ADM DATE: 06/11/18 AGE: 68 : 50 SEX: M ROOM/BED: D.2110 AUTHOR: THUAN BARRIENTOS PHYSICIAN: REFERRING PHYSICIAN: GLADYS THOMAS MD DATE OF SERVICE: 06/16/18 Discharge Plan Patient Name: ERENDIRA GONZALEZ Facility: [facility]:[place] : 1950 Planned Disposition: Inpatient Rehab Anticipated Discharge Date: 06/17/18 Discharge Date: Expected LOS: 6 Initial Reviewer: [id number] Initial Review Date: 06/16/2018 Generated: 06/16/18 5:36 pm Coverage Notice Reviewer: [id number] - Hemant Acuna Notice Issued Date-Time: 06/16/2018 14:25 Notice Type: IM Discharge Notice Notice Delivered To: Patient Relationship to Patient: Video Tape Duplicator Name: Delivery Method: HAND - Hand Delivered Allie Days: Prior Verbal Notification: Recipient Understood Notice: Yes Recipient Signature: Yes Med Rec Note Co-signed by Attending: Coverage Notice Comment: Patient Name: ERENDIRA GONZALEZ Page 52368 at 1636 All edits/amendments must be made on the electronic document DICTATION DATE: 06/16/181634 BEAD FLIPPER: WENDY 06/16/18 163 RPT#: [id number] DC DATE: STATUS: ADM IN [place] [address] [place] [address] END OF REPORT
[2018-06-11 10:58] LABS: ANION GAP 20.2 mmol/L (8-16); BILIRUBIN - TOTAL 0.66 mg/dL (0.2-1.3); CALCIUM 8.9 mg/dL (8.5-10.1); CARBON DIOXIDE 19.4 mmol/L (21.0-32.0); CREATININE - SERUM 1.9 mg/dL (0.6-1.3); POTASSIUM - SERUM 3.6 mmol/L (3.5-5.1); PROTEIN - SERUM 7.4 g/dL (6.4-8.2)
[2018-06-11 11:00] LABS: HEMATOCRIT 39.4 % (42.0-54.0); HEMOGLOBIN 13.6 g/dL (13.5-17.5); MCH 32.4 pg (26.0-34.0); MCHC 34.5 g/dL (31.0-37.0); MCV 93.8 fL (80.0-100.0); MEAN PLATELET VOLUME 11.1 fL (7.4-10.4); PLATELET COUNT 202 10x3/uL (130-400); RDW 13.7 % (11.5-14.5); WBC 28.1 10x3/uL (4.8-10.8)
[2018-06-11 11:17] LABS: APPEARANCE CLEAR (CLEAR); BILIRUBIN NEGATIVE (NEGATIVE); COLOR YELLOW (YELLOW); GLUCOSE NEGATIVE (NEGATIVE); KETONE NEGATIVE (NEGATIVE); NITRITE NEGATIVE (NEGATIVE); PROTEIN 3+ mg/dL (NEGATIVE); SPECIFIC GRAVITY 1.015 (1.005-1.020); UROBILINOGEN NORMAL (NORMAL)
[2018-06-11 11:18] LABS: BACTERIA FEW /hpf (NONE SEEN); EPITHELIAL CELLS 0-5 /hpf (0-5); MUCUS <1+ /lpf (NONE SEEN); RED CELLS - URINE 0-5 /hpf (0-5); WHITE CELLS - URINE 0-5 /hpf (0-5)
[2018-06-11 11:20] LABS: LYMPHOCYTES 4 % (15-50); MONOCYTES 10 % (2-11); NEUTROPHILS 71 % (40-80); PLATELET ESTIMATE NORMAL
[2018-06-11] MEDS ORDERED: NORVASC5 MG PO (17:32)
[2018-06-11 17:33] VITALS: BP 101/53
[2018-06-11 23:12] VITALS: BP 121/61
[2018-06-12 02:38] VITALS: BP 105/48
[2018-06-12 05:09] LABS: BASOPHILS 0.2 % (0-2); EOSINOPHILS 0.9 % (0-7); HEMATOCRIT 38.2 % (42.0-54.0); HEMOGLOBIN 12.7 g/dL (13.5-17.5); IMMATURE GRANULOCYTES 2.6 % (0-5); LYMPHOCYTES 5.5 % (15-50); MCH 31.9 pg (26.0-34.0); MCHC 33.2 g/dL (31.0-37.0); MEAN PLATELET VOLUME 10.9 fL (7.4-10.4); MONOCYTES 6.8 % (2-11); PLATELET COUNT 151 10x3/uL (130-400); RBC 3.98 10x6/uL (4.20-6.10); RDW 14.1 % (11.5-14.5); WBC 18.9 10x3/uL (4.8-10.8)
[2018-06-12 05:25] LABS: ALBUMIN 2.5 g/dL (3.4-5.0); BILIRUBIN - TOTAL 0.61 mg/dL (0.2-1.3); CALCIUM 8.4 mg/dL (8.5-10.1); CREATININE - SERUM 1.6 mg/dL (0.6-1.3); POTASSIUM - SERUM 3.8 mmol/L (3.5-5.1)
[2018-06-12 05:27] LABS: ANION GAP 13.5 mmol/L (8-16); CARBON DIOXIDE 24.3 mmol/L (21.0-32.0)
[2018-06-12 06:07] VITALS: BP 99/43
[2018-06-12 08:00] VITALS: BP 111/52
[2018-06-12 10:36] VITALS: BMI 33.7
[2018-06-12 16:25] VITALS: Ht 190.5 cm; Wt 15.4 kg
[2018-06-12 20:00] VITALS: BP 96/37
[2018-06-13] VITALS: BP 123/53
[2018-06-13 04:00] VITALS: BP 117/54
[2018-06-13 05:23] LABS: BASOPHILS 0.2 % (0-2); EOSINOPHILS 1.6 % (0-7); HEMATOCRIT 38.7 % (42.0-54.0); HEMOGLOBIN 12.8 g/dL (13.5-17.5); LYMPHOCYTES 7.3 % (15-50); MCH 31.9 pg (26.0-34.0); MCHC 33.1 g/dL (31.0-37.0); MCV 96.5 fL (80.0-100.0); MEAN PLATELET VOLUME 11.9 fL (7.4-10.4); MONOCYTES 8.5 % (2-11); NEUTROPHILS 81.4 % (40-80); PLATELET COUNT 144 10x3/uL (130-400); RBC 4.01 10x6/uL (4.20-6.10); RDW 13.9 % (11.5-14.5); WBC 18.7 10x3/uL (4.8-10.8)
[2018-06-13 05:36] LABS: ANION GAP 12.4 mmol/L (8-16); CALCIUM 8.3 mg/dL (8.5-10.1); CARBON DIOXIDE 24.5 mmol/L (21.0-32.0); CREATININE - SERUM 1.3 mg/dL (0.6-1.3); POTASSIUM - SERUM 3.9 mmol/L (3.5-5.1)
[2018-06-13 08:39] VITALS: BP 122/58
[2018-06-13 14:56] VITALS: BP 121/50
[2018-06-13 20:00] VITALS: BP 104/55
[2018-06-14] VITALS: BP 141/60
[2018-06-14 04:00] VITALS: BP 133/59
[2018-06-14 06:06] LABS: BASOPHILS 0.3 % (0-2); EOSINOPHILS 1.3 % (0-7); HEMATOCRIT 40.2 % (42.0-54.0); HEMOGLOBIN 13.4 g/dL (13.5-17.5); IMMATURE GRANULOCYTES 1.8 % (0-5); LYMPHOCYTES 9.8 % (15-50); MCH 32.4 pg (26.0-34.0); MCHC 33.3 g/dL (31.0-37.0); MCV 97.3 fL (80.0-100.0); MEAN PLATELET VOLUME 11.3 fL (7.4-10.4); MONOCYTES 8.5 % (2-11); NEUTROPHILS 78.3 % (40-80); PLATELET COUNT 157 10x3/uL (130-400); RBC 4.13 10x6/uL (4.20-6.10); RDW 13.9 % (11.5-14.5); WBC 14.3 10x3/uL (4.8-10.8)
[2018-06-14 07:04] LABS: ANION GAP 15.8 mmol/L (8-16); CALCIUM 8.6 mg/dL (8.5-10.1); CARBON DIOXIDE 22.4 mmol/L (21.0-32.0); CREATININE - SERUM 1.2 mg/dL (0.6-1.3); POTASSIUM - SERUM 4.2 mmol/L (3.5-5.1)
[2018-06-14 08:34] VITALS: BP 124/61
[2018-06-14 12:12] VITALS: BP 122/59
[2018-06-14 15:14] VITALS: BP 120/64
[2018-06-14 20:00] VITALS: BP 137/68
[2018-06-15] VITALS: BP 125/62
[2018-06-15 04:00] VITALS: BP 134/70
[2018-06-15 09:54] VITALS: BP 148/69
[2018-06-15 11:39] VITALS: BP 127/64
[2018-06-15 15:25] VITALS: BP 128/61
[2018-06-15 20:44] VITALS: BP 135/55
[2018-06-16 00:25] VITALS: BP 132/60
[2018-06-16 04:00] VITALS: BP 134/66
[2018-06-16 05:53] LABS: BASOPHILS 0.2 % (0-2); EOSINOPHILS 2.7 % (0-7); HEMATOCRIT 39.9 % (42.0-54.0); HEMOGLOBIN 13.1 g/dL (13.5-17.5); LYMPHOCYTES 21.4 % (15-50); MCH 31.6 pg (26.0-34.0); MCHC 32.8 g/dL (31.0-37.0); MCV 96.4 fL (80.0-100.0); MEAN PLATELET VOLUME 11.3 fL (7.4-10.4); MONOCYTES 10.6 % (2-11); NEUTROPHILS 59.1 % (40-80); RBC 4.14 10x6/uL (4.20-6.10); RDW 13.7 % (11.5-14.5)
[2018-06-16 06:05] LABS: PLATELET COUNT 215 10x3/uL (130-400); WBC 8.7 10x3/uL (4.8-10.8)
[2018-06-16 06:07] LABS: ANION GAP 15.6 mmol/L (8-16); CALCIUM 8.9 mg/dL (8.5-10.1); CARBON DIOXIDE 24.8 mmol/L (21.0-32.0); CREATININE - SERUM 1.3 mg/dL (0.6-1.3)
[2018-06-16 06:10] LABS: POTASSIUM - SERUM 3.4 mmol/L (3.5-5.1)
[2018-06-16 08:21] VITALS: BP 132/66
[2018-06-16 11:43] VITALS: BP 163/58
[2018-06-16 16:00] VITALS: BP 150/60
[2018-06-16 21:48] VITALS: BP 127/59
[2018-06-17 00:02] VITALS: BP 138/65
[2018-06-17 04:47] LABS: BASOPHILS 0.4 % (0-2); HEMATOCRIT 39.7 % (42.0-54.0); HEMOGLOBIN 13.2 g/dL (13.5-17.5); IMMATURE GRANULOCYTES 6.2 % (0-5); MCH 32.2 pg (26.0-34.0); MCHC 33.2 g/dL (31.0-37.0); MCV 96.8 fL (80.0-100.0); MEAN PLATELET VOLUME 10.9 fL (7.4-10.4); MONOCYTES 9.6 % (2-11); NEUTROPHILS 60.8 % (40-80); PLATELET COUNT 258 10x3/uL (130-400); RDW 13.7 % (11.5-14.5); WBC 9.8 10x3/uL (4.8-10.8)
[2018-06-17 05:11] LABS: CALCIUM 8.8 mg/dL (8.5-10.1); CREATININE - SERUM 1.3 mg/dL (0.6-1.3)
[2018-06-17 05:25] VITALS: BP 131/66
[2018-06-17] MEDS ORDERED: HYDROCODON-ACE1 EAC7 PO (07:32)
[2018-06-17] MEDS ORDERED: FLORAJEN3 CAPS460 MG PO (07:33)
[2018-06-17] MEDS ORDERED: LOMOTIL 2.5-0.1 EAC1 PO (07:33)
[2018-06-17] MEDS ORDERED: AUGMENTIN 875-11 TAB PO (07:35)
[2018-06-17 08:17] VITALS: BP 117/64
[2018-06-17 11:55] VITALS: BP 122/44
== END 2018-06-17 15:13 | DRG 570 ==
LOC: D.ER 09:38 → D.EDHOLD 12:26 → D.M2 12:26 → D.EDHOLD 13:41 → D.M2 14:31
PROVIDERS: Family Medicine; Surgery
PROC: 0JBB0ZZ Excision of Perineum Subcutaneous Tissue and Fascia, Open Approach (ICD-10-PCS; principal; 2018-06-13 08:00)
DX: L02.215 Cutaneous abscess of perineum (principal); J18.9 Pneumonia, unspecified organism; J44.1 Chronic obstructive pulmonary disease with (acute) exacerbation; J44.0 Chronic obstructive pulmonary disease with (acute) lower respiratory infection; J98.11 Atelectasis; J95.89 Other postprocedural complications and disorders of respiratory system, not elsewhere classified; E11.9 Type 2 diabetes mellitus without complications; I10 Essential (primary) hypertension; W18.2XXA Fall in (into) shower or empty bathtub, initial encounter; Y92.012 Bathroom of single-family (private) house as the place of occurrence of the external cause; R09.02 Hypoxemia; E88.09 Other disorders of plasma-protein metabolism, not elsewhere classified; B39.9 Histoplasmosis, unspecified; Y95 Nosocomial condition

== ENCOUNTER 2018-06-17 15:44 | Inpatient (IN) | payer MEDICARE ==
[~2018-06-17] VITALS: Ht 190.5 cm; Wt 115.7 kg
--- NOTE | ~2018-06-17 | RHP ---
PATIENT: ERENDIRA GONZALEZ MEDICAL RECORD: [id number] ACCOUNT: [id number] LOCATION:[facility]1114 : 50 ADMISSION DATE: 06/17/18 REHABILITATION HISTORY AND PHYSICAL EXAMINATION POST ADMISSION PHYSICIAN EXAMINATION POST-ADMISSION PHYSICAL EXAMINATION AND HISTORY AND PHYSICAL DATE OF ADMISSION TO THE REHAB: 06/17/2018 ADMITTING DIAGNOSIS: Acute exacerbation of chronic obstructive pulmonary disease. HISTORY OF PRESENT ILLNESS: The patient is a gentleman, who is admitted to the inpatient rehab with acute exacerbation of COPD. A 68-year-old gentleman admitted to the acute hospital after a fall and hip contusion. He was noted to have leukocytosis of 28,000 with a perineal abscess and was started on IV antibiotics. Dr. Tatum was consulted. He had an abscess about a month ago. He had an I&D per Dr. Tatum. He went to surgery on 06/11, had postop complication, respiratory distress, and hypoxia. Pulmonary was consulted. He was found to have bilateral left lower lobe atelectasis versus infiltrates and then requiring high-flow O2. He has got a past medical history of histoplasmosis, abscesses of the brain, on chronic antifungal therapy, hypertension, coronary artery disease, status post PTCA and stent, history of peripheral vascular disease, recent history of perineal abscess with I&D. The patient quit smoking approximately 3 years ago, was 3 packs per day, he started at 16. He continues to require increased amount of supplemental oxygen and has no home oxygen set up at this time. He is debilitated. He has impaired physical mobility, weakness, shortness of breath, dyspnea on exertion, self-care deficit. Also monitoring a perineal abscess that has reoccurred. He is on IV antibiotics. These are all barriers to discharge home. He lives at home alone. His son and daughter come and check on him. He was moderately independent with mobility with rolling walker. Moderately independent with ADLs. Currently set up for max assist for ADLs and mod-to-max assist for mobility. He plans to return home at his prior level of functioning or better after this acute inpatient stay. Comorbidities in this patient include COPD, obstructive sleep apnea, left lower lobe versus right lower lobe hospital-acquired pneumonia versus atelectasis. He has got leukocytosis, hypertension, coronary artery disease, peripheral vascular disease, history of histoplasmosis, elevated glucose, hypoalbuminemia, elevated LFTs, elevated serum creatinine, chronic hypertension, and past tobacco use. PAST MEDICAL HISTORY: Significant for neuropathy, fungus, hard of hearing, mass on his kidney, hypertension, peripheral vascular disease, coronary artery disease, chronic back pain, bruising, and past tobacco use. PAST SURGICAL HISTORY: Includes brain biopsy, iliac stents, angioplasty with stent placement. ALLERGIES: ALTACE AND METFORMIN. CURRENT MEDICATIONS: Include Floranex 460 mg daily, spironolactone 25 mg b.i.d., propranolol 40 mg b.i.d., Sporanox 300 mg b.i.d., [place] 5/325 one tab every 3 hours p.r.n., Lomotil 2 tabs every 6 hours p.r.n., Augmentin 875/125 one HISTORY AND PHYSICAL [id number] ERENDIRA GONZALEZ tab b.i.d., and Norvasc 5 mg at bedtime. HABITS: Does have a history of tobacco use, quit approximately 3 years ago. FAMILY HISTORY: Noncontributory. SOCIAL HISTORY: The patient hopes to return back home and get back to his prior level of functioning. REVIEW OF SYSTEMS: GENERAL: Does complain of weakness and fatigue. HEENT: Denies cold, cough, or congestion. CARDIOVASCULAR: Denies chest pain. PHYSICAL EXAMINATION: VITAL SIGNS: Stable, afebrile. GENERAL: A morbidly obese gentleman, alert upon exam. HEENT: Normocephalic and atraumatic. Mucosa moist. NECK: Supple. No lymphadenopathy. LUNGS: Clear at this time in the upper adams. He does have decreased breath sounds in the bases. CARDIOVASCULAR: Regular rate and rhythm. ABDOMEN: Benign. Does have noted surgical areas below his umbilical area down to the perineum. EXTREMITIES: No clubbing or cyanosis. Does have some edema. NEUROLOGIC: He does have noted weakness. LABORATORY DATA: White count is 10.3, H&H of 12.7 and 38.3, and platelet count of 324. Sodium 139, potassium 3.7, BUN and creatinine of 16 and 1.3, and blood sugar is noted to be 175. ASSESSMENT: This is a 68-year-old gentleman admitted to the rehab with a working diagnosis of debility secondary to exacerbation of chronic obstructive pulmonary disease and also a perineal abscess. The patient has potential to make improvement. We will institute following multidisciplinary therapies including, but not limited to, physical, occupational, respiratory, speech, nutritional services, prosthetics and orthotics. Given his complex medical condition and risks for more complications, rehabilitation services cannot be provided at a low level of care such as assisted facility. PLAN: 1. Admit to [facility] for intensive inpatient therapy to include the following disciplines: A. Physical therapy to improve gait, all transfer skills, and bed mobility to a modified independent level. B. Occupational therapy to improve activities of daily living to a modified independent level. C. Case management to assist with discharge planning and placement options. D. Nutrition to assist with nutritional needs. E. Rehabilitation nursing to assist in monitoring the patient's underlying medical conditions and to assist with any type of bowel or bladder management. 2. The patient's current medication and medical care will be continued. 3. The patient will be placed on standard fall precautions. 4. The patient estimated length of stay is approximately 7-10 days. 5. Discuss this patient during care team staff meeting this week. HISTORY AND PHYSICAL [id number] ERENDIRA GONZALEZ TRANSINT:[id number] Voice Confirmation ID: [id number] DOCUMENT ID: [id number] COMFORT notes whether there has been none or any medical/functional change since admission: - No change since prescreen. COMFORT attests patient continues to be appropriate for IRF: - Continues to be appropriate. ELMER FINK MD at 1812 CC: [id number] DICTATION DATE: 06/18/1828 MANDREL PRESS HAND: 06/18/18 1014 ADM IN [facility] [address] [id number]
[~2018-06-17 15:44] MED LIST changes: +AUGMENTIN 875-11 TAB PO; +FLORAJEN3 CAPS460 MG PO; +HYDROCODON-ACE1 EAC7 PO; +LOMOTIL 2.5-0.1 EAC1 PO
[2018-06-17 16:24] VITALS: BP 144/72; BMI 31.9
[2018-06-17 19:00] VITALS: BP 113/68
[2018-06-18 06:22] LABS: BASOPHILS 0.2 % (0-2); EOSINOPHILS 1.8 % (0-7); HEMATOCRIT 38.3 % (42.0-54.0); HEMOGLOBIN 12.7 g/dL (13.5-17.5); IMMATURE GRANULOCYTES 2.8 % (0-5); LYMPHOCYTES 17.3 % (15-50); MCH 31.9 pg (26.0-34.0); MCHC 33.2 g/dL (31.0-37.0); MCV 96.2 fL (80.0-100.0); MEAN PLATELET VOLUME 11.1 fL (7.4-10.4); MONOCYTES 7.2 % (2-11); NEUTROPHILS 70.7 % (40-80); RBC 3.98 10x6/uL (4.20-6.10); RDW 13.7 % (11.5-14.5); WBC 10.3 10x3/uL (4.8-10.8)
[2018-06-18 06:28] LABS: PLATELET COUNT 324 10x3/uL (130-400)
[2018-06-18 06:45] LABS: ANION GAP 14.7 mmol/L (8-16); CREATININE - SERUM 1.3 mg/dL (0.6-1.3); POTASSIUM - SERUM 3.7 mmol/L (3.5-5.1)
[2018-06-18 08:00] VITALS: BP 168/80
[2018-06-18 14:30] VITALS: Ht 190.5 cm; Wt 115.7 kg
[2018-06-18 19:00] VITALS: BP 149/67
[2018-06-19 06:17] LABS: BASOPHILS 0.2 % (0-2); EOSINOPHILS 1.3 % (0-7); HEMATOCRIT 38.4 % (42.0-54.0); HEMOGLOBIN 12.8 g/dL (13.5-17.5); IMMATURE GRANULOCYTES 1.8 % (0-5); LYMPHOCYTES 20.1 % (15-50); MCH 32.1 pg (26.0-34.0); MCHC 33.3 g/dL (31.0-37.0); MCV 96.2 fL (80.0-100.0); MEAN PLATELET VOLUME 10.8 fL (7.4-10.4); MONOCYTES 7.1 % (2-11); NEUTROPHILS 69.5 % (40-80); PLATELET COUNT 325 10x3/uL (130-400); RBC 3.99 10x6/uL (4.20-6.10); RDW 13.7 % (11.5-14.5); WBC 9.9 10x3/uL (4.8-10.8)
[2018-06-19 06:40] LABS: ANION GAP 12.9 mmol/L (8-16); CALCIUM 8.5 mg/dL (8.5-10.1); CARBON DIOXIDE 23.9 mmol/L (21.0-32.0); CREATININE - SERUM 1.3 mg/dL (0.6-1.3); POTASSIUM - SERUM 3.8 mmol/L (3.5-5.1)
[2018-06-19 08:00] VITALS: BP 136/75
[2018-06-19 19:00] VITALS: BP 163/77
[2018-06-20 08:00] VITALS: BP 131/59
[2018-06-20 19:30] VITALS: BP 124/65
[2018-06-21 08:57] VITALS: BP 161/70
[2018-06-21 20:11] VITALS: BP 125/53
[2018-06-22 05:44] LABS: BASOPHILS 0.2 % (0-2); EOSINOPHILS 2.1 % (0-7); HEMATOCRIT 40.4 % (42.0-54.0); HEMOGLOBIN 13.5 g/dL (13.5-17.5); IMMATURE GRANULOCYTES 0.5 % (0-5); LYMPHOCYTES 23.1 % (15-50); MCH 32.1 pg (26.0-34.0); MCHC 33.4 g/dL (31.0-37.0); MONOCYTES 9.6 % (2-11); NEUTROPHILS 64.5 % (40-80); RBC 4.21 10x6/uL (4.20-6.10); RDW 13.6 % (11.5-14.5); WBC 8.7 10x3/uL (4.8-10.8)
[2018-06-22 05:45] LABS: PLATELET COUNT 394 10x3/uL (130-400)
[2018-06-22 06:02] LABS: ANION GAP 17.1 mmol/L (8-16); CALCIUM 10.1 mg/dL (8.5-10.1); CARBON DIOXIDE 23.2 mmol/L (21.0-32.0); CREATININE - SERUM 1.2 mg/dL (0.6-1.3); POTASSIUM - SERUM 4.3 mmol/L (3.5-5.1)
[2018-06-22 08:00] VITALS: BP 157/76
[2018-06-22 19:00] VITALS: BP 127/65
[2018-06-23 19:00] VITALS: BP 146/67
[2018-06-24 07:17] LABS: BASOPHILS 0.5 % (0-2); EOSINOPHILS 2.7 % (0-7); HEMATOCRIT 41.9 % (42.0-54.0); IMMATURE GRANULOCYTES 0.5 % (0-5); MCH 32.1 pg (26.0-34.0); MCHC 33.4 g/dL (31.0-37.0); MCV 96.1 fL (80.0-100.0); MEAN PLATELET VOLUME 10.4 fL (7.4-10.4); MONOCYTES 9.6 % (2-11); NEUTROPHILS 59.7 % (40-80); PLATELET COUNT 387 10x3/uL (130-400); RBC 4.36 10x6/uL (4.20-6.10); RDW 13.3 % (11.5-14.5); WBC 8.6 10x3/uL (4.8-10.8)
[2018-06-24 07:31] LABS: ANION GAP 17.4 mmol/L (8-16); CALCIUM 9.9 mg/dL (8.5-10.1); CARBON DIOXIDE 21.2 mmol/L (21.0-32.0); CREATININE - SERUM 1.2 mg/dL (0.6-1.3); POTASSIUM - SERUM 4.6 mmol/L (3.5-5.1)
[2018-06-24 19:00] VITALS: BP 132/65
[2018-06-25 08:00] VITALS: BP 126/70
[2018-06-25 19:00] VITALS: BP 124/51
[2018-06-26 07:07] LABS: HEMATOCRIT 43.1 % (42.0-54.0); HEMOGLOBIN 14.6 g/dL (13.5-17.5); LYMPHOCYTES 31.1 % (15-50); MCH 31.3 pg (26.0-34.0); MCHC 33.9 g/dL (31.0-37.0); MEAN PLATELET VOLUME 11.3 fL (7.4-10.4); NEUTROPHILS 54.7 % (40-80); RBC 4.66 10x6/uL (4.20-6.10); RDW 13.2 % (11.5-14.5); WBC 8.1 10x3/uL (4.8-10.8)
[2018-06-26 07:10] LABS: MCV 92.5 fL (80.0-100.0); PLATELET COUNT 267 10x3/uL (130-400)
[2018-06-26 07:18] LABS: ANION GAP 17.7 mmol/L (8-16); CALCIUM 9.7 mg/dL (8.5-10.1); CARBON DIOXIDE 21.2 mmol/L (21.0-32.0); CREATININE - SERUM 1.3 mg/dL (0.6-1.3); POTASSIUM - SERUM 4.9 mmol/L (3.5-5.1)
[2018-06-26 08:00] VITALS: BP 149/70
[2018-06-26 20:19] VITALS: BP 107/45
[2018-06-26 21:41] VITALS: BP 107/45
[2018-06-27 14:09] VITALS: BP 140/59
[2018-06-27 21:17] VITALS: BP 136/62
[2018-06-28 09:22] VITALS: BP 135/71
[2018-06-28 20:55] VITALS: BP 118/54
[2018-06-29 06:20] LABS: BASOPHILS 0.9 % (0-2); EOSINOPHILS 4.9 % (0-7); HEMATOCRIT 40.3 % (42.0-54.0); HEMOGLOBIN 13.6 g/dL (13.5-17.5); IMMATURE GRANULOCYTES 0.3 % (0-5); LYMPHOCYTES 32.2 % (15-50); MCH 32.4 pg (26.0-34.0); MCHC 33.7 g/dL (31.0-37.0); MEAN PLATELET VOLUME 10.7 fL (7.4-10.4); MONOCYTES 16.3 % (2-11); NEUTROPHILS 45.4 % (40-80); PLATELET COUNT 288 10x3/uL (130-400); RDW 13.3 % (11.5-14.5); WBC 6.5 10x3/uL (4.8-10.8)
[2018-06-29 06:39] LABS: ANION GAP 14.3 mmol/L (8-16); CALCIUM 9.1 mg/dL (8.5-10.1); CARBON DIOXIDE 23.9 mmol/L (21.0-32.0); CREATININE - SERUM 1.3 mg/dL (0.6-1.3); POTASSIUM - SERUM 4.2 mmol/L (3.5-5.1)
[2018-06-29 07:46] VITALS: BP 137/65
[2018-06-29 19:00] VITALS: BP 125/62
[2018-06-30 07:59] VITALS: BP 117/67
[2018-06-30] MEDS ORDERED: GLIMEPIRIDE1 MG PO (08:33)
== END 2018-06-30 12:00 | disposition home health service (06) | DRG 947 ==
LOC: D.REHAB 15:44
PROVIDERS: Emergency Medicine
DX: R53.81 Other malaise (principal); J96.01 Acute respiratory failure with hypoxia; J44.1 Chronic obstructive pulmonary disease with (acute) exacerbation; J90 Pleural effusion, not elsewhere classified; N17.9 Acute kidney failure, unspecified; G47.33 Obstructive sleep apnea (adult) (pediatric); D72.829 Elevated white blood cell count, unspecified; I10 Essential (primary) hypertension; I25.10 Atherosclerotic heart disease of native coronary artery without angina pectoris; I73.9 Peripheral vascular disease, unspecified; Z87.891 Personal history of nicotine dependence; E88.09 Other disorders of plasma-protein metabolism, not elsewhere classified; R79.89 Other specified abnormal findings of blood chemistry; E11.65 Type 2 diabetes mellitus with hyperglycemia

== ENCOUNTER → 2018-07-29 18:05 | Outpatient (CLI) | payer MEDICARE ==
[2018-06-18 14:30] VITALS: BMI 31.8
[~2018-07-29 18:05] MED LIST changes: +GLIMEPIRIDE1 MG PO
[2018-07-29 19:18] LABS: BASOPHILS 0.2 % (0-2); EOSINOPHILS 2.5 % (0-7); HEMATOCRIT 41.3 % (42.0-54.0); HEMOGLOBIN 14.2 g/dL (13.5-17.5); IMMATURE GRANULOCYTES 0.7 % (0-5); LYMPHOCYTES 25.1 % (15-50); MCH 32.3 pg (26.0-34.0); MCHC 34.4 g/dL (31.0-37.0); MCV 93.9 fL (80.0-100.0); MEAN PLATELET VOLUME 10.4 fL (7.4-10.4); MONOCYTES 11.2 % (2-11); NEUTROPHILS 60.3 % (40-80); PLATELET COUNT 271 10x3/uL (130-400); RDW 13.7 % (11.5-14.5); WBC 11.3 10x3/uL (4.8-10.8)
[2018-07-29 19:53] LABS: ALBUMIN 3.6 g/dL (3.4-5.0); ALKALINE PHOSPHATASE 99 U/L (46-116); ALT (SGPT) 57 U/L (10-68); BILIRUBIN - TOTAL 0.28 mg/dL (0.2-1.3); CALC OSMOLALITY 272 mosm/kg (275-300); CALCIUM 8.6 mg/dL (8.5-10.1); CARBON DIOXIDE 20.9 mmol/L (21.0-32.0); CHLORIDE - SERUM 102 mmol/L (98-107); GLUCOSE 124 mg/dL (74-106); POTASSIUM - SERUM 4.1 mmol/L (3.5-5.1); PROTEIN - SERUM 7.5 g/dL (6.4-8.2); SODIUM 135 mmol/L (136-145); UREA NITROGEN 17 mg/dL (7-18); eGFR NON AFRICAN AMERICAN 79 mL/min (90-120)
== END | disposition home or self-care (01) ==
LOC: D.LABREF 18:05
PROVIDERS: Student in an Organized Health Care Education/Training Program
DX: B39.9 Histoplasmosis, unspecified (principal)

== ENCOUNTER → 2018-10-16 06:31 | Outpatient (CLI) | payer MEDICARE ==
[2018-06-18 14:30] VITALS: BMI 31.8
== END | disposition home or self-care (01) ==
LOC: D.MRI 06:31
DX: B39.9 Histoplasmosis, unspecified (principal)

== ENCOUNTER → 2018-11-03 10:57 | Outpatient (CLI) | payer MEDICARE ==
[2018-06-18 14:30] VITALS: BMI 31.8
[2018-11-03 15:48] LABS: BASOPHILS 0.3 % (0-2); EOSINOPHILS 1.5 % (0-7); HEMATOCRIT 44.8 % (42.0-54.0); HEMOGLOBIN 15.4 g/dL (13.5-17.5); LYMPHOCYTES 21.2 % (15-50); MCH 32.2 pg (26.0-34.0); MCHC 34.4 g/dL (31.0-37.0); MCV 93.5 fL (80.0-100.0); MONOCYTES 6.5 % (2-11); NEUTROPHILS 69.5 % (40-80); PLATELET COUNT 276 10x3/uL (130-400); RBC 4.79 10x6/uL (4.20-6.10); RDW 13.6 % (11.5-14.5); WBC 11.4 10x3/uL (4.8-10.8)
[2018-11-03 15:59] LABS: ALBUMIN 3.8 g/dL (3.4-5.0); ANION GAP 17.7 mmol/L (8-16); BILIRUBIN - TOTAL 0.51 mg/dL (0.2-1.3); CALCIUM 9.6 mg/dL (8.5-10.1); CARBON DIOXIDE 25.7 mmol/L (21.0-32.0); CREATININE - SERUM 1.1 mg/dL (0.6-1.3); POTASSIUM - SERUM 4.4 mmol/L (3.5-5.1); PROTEIN - SERUM 7.7 g/dL (6.4-8.2)
== END | disposition home or self-care (01) ==
LOC: D.LABREF 10:57
PROVIDERS: ATTEND Student in an Organized Health Care Education/Training Program
DX: B39.9 Histoplasmosis, unspecified (principal); E11.9 Type 2 diabetes mellitus without complications

== ENCOUNTER → 2018-12-16 19:54 | Outpatient (CLI) | payer MEDICARE ==
[2018-06-18 14:30] VITALS: BMI 31.8
[2018-12-16 20:27] LABS: ALBUMIN 3.9 g/dL (3.4-5.0); ALKALINE PHOSPHATASE 89 U/L (46-116); ALT (SGPT) 83 U/L (10-68); BILIRUBIN - TOTAL 0.53 mg/dL (0.2-1.3); CALC OSMOLALITY 268 mosm/kg (275-300); CALCIUM 8.9 mg/dL (8.5-10.1); CARBON DIOXIDE 23.8 mmol/L (21.0-32.0); CHLORIDE - SERUM 97 mmol/L (98-107); POTASSIUM - SERUM 4.2 mmol/L (3.5-5.1); PROTEIN - SERUM 7.9 g/dL (6.4-8.2); SODIUM 134 mmol/L (136-145); UREA NITROGEN 18 mg/dL (7-18); eGFR NON AFRICAN AMERICAN 79 mL/min (90-120)
[2018-12-16 20:39] LABS: GLUCOSE 82 mg/dL (74-106)
== END | disposition home or self-care (01) ==
LOC: D.LABREF 19:54
PROVIDERS: ATTEND Student in an Organized Health Care Education/Training Program
DX: Z79.899 Other long term (current) drug therapy (principal)

== ENCOUNTER → 2019-02-17 19:00 | Outpatient (CLI) | payer MEDICARE ==
[2018-06-18 14:30] VITALS: BMI 31.8
[2019-02-17 19:27] LABS: ALBUMIN 3.7 g/dL (3.4-5.0); ANION GAP 16.5 mmol/L (8-16); BILIRUBIN - TOTAL 0.42 mg/dL (0.2-1.3); CALCIUM 8.4 mg/dL (8.5-10.1); CARBON DIOXIDE 23.6 mmol/L (21.0-32.0); CREATININE - SERUM 1.1 mg/dL (0.6-1.3); POTASSIUM - SERUM 4.1 mmol/L (3.5-5.1); PROTEIN - SERUM 7.2 g/dL (6.4-8.2)
== END | disposition home or self-care (01) ==
LOC: D.LABREF 19:00
PROVIDERS: ATTEND Student in an Organized Health Care Education/Training Program
DX: Z51.81 Encounter for therapeutic drug level monitoring (principal); Z79.899 Other long term (current) drug therapy

== ENCOUNTER → 2019-04-23 10:28 | Outpatient (CLI) | payer MEDICARE ==
[2018-06-18 14:30] VITALS: BMI 31.8
== END | disposition home or self-care (01) ==
LOC: D.MRI 10:28
PROVIDERS: ATTEND Family Medicine
DX: H31.093 Other chorioretinal scars, bilateral (principal); G06.0 Intracranial abscess and granuloma

== ENCOUNTER 2019-08-27 12:39 | Inpatient (IN) | payer MEDICARE ==
[~2019-08-27] VITALS: Ht 190.5 cm; Wt 113.6 kg
--- NOTE | 2019-08-27 13:08 | NUR ---
FSBS 219
[2019-08-27 13:20] LABS: BASOPHILS 0.2 % (0-2); EOSINOPHILS 0.6 % (0-7); HEMATOCRIT 47.1 % (42.0-54.0); HEMOGLOBIN 16.4 g/dL (13.5-17.5); IMMATURE GRANULOCYTES 0.6 % (0-5); LYMPHOCYTES 3.5 % (15-50); MCH 32.7 pg (26.0-34.0); MCHC 34.8 g/dL (31.0-37.0); MCV 93.8 fL (80.0-100.0); MEAN PLATELET VOLUME 10.2 fL (7.4-10.4); MONOCYTES 4.2 % (2-11); NEUTROPHILS 90.9 % (40-80); PLATELET COUNT 238 10x3/uL (130-400); RBC 5.02 10x6/uL (4.20-6.10); RDW 13.3 % (11.5-14.5); WBC 10.8 10x3/uL (4.8-10.8)
[2019-08-27 13:28] LABS: APPEARANCE CLEAR (CLEAR); BILIRUBIN NEGATIVE (NEGATIVE); COLOR U (YELLOW); GLUCOSE NEGATIVE (NEGATIVE); KETONE NEGATIVE (NEGATIVE); NITRITE NEGATIVE (NEGATIVE); PROTEIN 1+ mg/dL (NEGATIVE); UROBILINOGEN NORMAL (NORMAL)
[2019-08-27 13:30] LABS: BACTERIA FEW /hpf (NEGATIVE); EPITHELIAL CELLS OCC /hpf (0-5); RED CELLS - URINE OCC /hpf (0-5); WHITE CELLS - URINE OCC /hpf (NEGATIVE)
[2019-08-27 13:32] LABS: APTT 30.7 SECONDS (22.8-39.4); INR 1.14 (0.85-1.17); PROTIME 14.1 SECONDS (11.6-15.0)
[2019-08-27 13:40] LABS: CALC OSMOLALITY 274 mosm/kg (275-300); CALCIUM 8.9 mg/dL (8.5-10.1); CARBON DIOXIDE 21.3 mmol/L (21.0-32.0); CHLORIDE - SERUM 99 mmol/L (98-107); CREATININE - SERUM 1.2 mg/dL (0.6-1.3); POTASSIUM - SERUM 4.5 mmol/L (3.5-5.1); SODIUM 133 mmol/L (136-145); UREA NITROGEN 18 mg/dL (7-18); eGFR NON AFRICAN AMERICAN 64 mL/min (90-120)
[2019-08-27 13:41] LABS: GLUCOSE 232 mg/dL (74-106)
[2019-08-27 13:44] LABS: UDS - AMPHET NEGATIVE QUAL (NEGATIVE); UDS - BARB NEGATIVE QUAL (NEGATIVE); UDS - BENZO NEGATIVE QUAL (NEGATIVE); UDS - COCAINE NEGATIVE QUAL (NEGATIVE); UDS - OPIATE NEGATIVE QUAL (NEGATIVE); UDS - PCP NEGATIVE QUAL (NEGATIVE); UDS - THC NEGATIVE QUAL (NEGATIVE)
[2019-08-27 13:52] VITALS: BP 184/82
[2019-08-27 13:54] LABS: ALBUMIN 3.3 g/dL (3.4-5.0); ALKALINE PHOSPHATASE 94 U/L (46-116); ALT (SGPT) 64 U/L (10-68); BILIRUBIN - TOTAL 0.74 mg/dL (0.2-1.3); CKMB 0.9 U/L (0.0-3.6); CREATINE KINASE 61 UL (21-232); MAGNESIUM - SERUM 1.4 mg/dL (1.8-2.4); PROTEIN - SERUM 7.4 g/dL (6.4-8.2); THYROID STIMULATING HORMONE 0.94 uIU/mL (0.36-3.74); TROPONIN-I < 0.017 ng/mL (0.000-0.060)
[2019-08-27 14:00] VITALS: BP 159/83
[2019-08-27 16:40] VITALS: BP 132/74
--- NOTE | 2019-08-27 17:24 | NUR ---
PATIENT HAS HAD TWO LARGE EPISODES OF EMESIS, REMAINS CONFUSED BUT COOPERATIVE WITH CARE.
--- NOTE | 2019-08-27 17:50 | NUR ---
PT RECEIVED FROM ER VIA STRETCHER AWAKE ALERT AND ORIENTED. PT WITHOUT NAUSEA OR VOMITING AT THIS TIME. DENIES PAIN AT THIS TIME. HISTORY OBTAINED FROM PT. SALINE LOC TO LEFT AC. SITE WITHOUT REDNESS OR EDEMA. ORIENTED TO ROOM, CL AND BED CONTROLS. DARCY BED ALARM IN PLACE. ENCOURAGED TO CALL WITH NEEDS.
[2019-08-27 17:54] VITALS: BP 124/58; Ht 190.5 cm; Wt 113.6 kg
--- NOTE | 2019-08-27 18:01 | MORECARE ---
CASE MANAGEMENT DISCHARGE SUMMARY PATIENT: ERENDIRA CUEVAS FRANSISCO UNIT: [id number] ADM DATE: 08/27/19 AGE: 69 : 50 SEX: M ROOM/BED: D.2233 AUTHOR: THUAN BARRIENTOS PHYSICIAN: REFERRING PHYSICIAN: GLADYS THOMAS MD DATE OF SERVICE: 08/27/19 Discharge Plan Patient Name: ERENDIRA CUEVAS Facility: [facility]:[place] : 1950 Planned Disposition: Anticipated Discharge Date: Discharge Date: Expected LOS: Initial Reviewer: [email or web address] Initial Review Date: 08/27/2019 Generated: 08/27/19 7:00 pm DCPIA - Discharge Planning Initial Assessment Updated by [email or web address]: Brenda Swenson on 08/27/19 5:59 pm * Is the patient Alert and Oriented? Yes * How many steps to enter\exit or inside your home? 13/03 rails * PCP Dr. Thomas * Pharmacy [facility] * Preadmission Environment Home Alone * ADLs Independent * Equipment Cane Rolling Walker Shower Chair * List name and contact numbers for known caregivers / representatives who currently or will assist patient after discharge: Ashly Paniagua (dtr) [phone] Aaliyah (aide) phone number is in his cell phone * Verbal permission to speak to the caregivers and representatives has been obtained from the patient. N/A * Community resources currently utilized Private Duty Care * Additional services required to return to the preadmission environment? No * Can the patient safely return to the preadmission environment? Yes Coverage Notice Reviewer: [id number] - Brenda Swenson Notice Issued Date-Time: 08/27/2019 17:20 Notice Type: Medicare Outpatient Observation Notice Notice Delivered To: Patient Relationship to Patient: Self Ventilation Worker Name: Erendira Cuevas Delivery Method: HAND - Hand Delivered Allie Days: Prior Verbal Notification: Recipient Understood Notice: Yes Recipient Signature: Yes Med Rec Note Co-signed by Attending: Coverage Notice Comment: YOUNG delivered to and signed by patient. Original given to patient and also placed on chart. Patient Name: ERENDIRA CUEVAS Page [phone] at 1801 All edits/amendments must be made on the electronic document DICTATION DATE: 08/27/191799 COOK FISH EGGS: WENDY 08/27/191799 RPT#: [id number] ND DATE: STATUS: ADM IN [facility] [address] [place] [address] END OF REPORT
--- NOTE | 2019-08-27 18:08 | MORECARE ---
CASE MANAGEMENT DISCHARGE SUMMARY PATIENT: ERENDIRA CUEVAS UNIT: [id number] ADM DATE: 08/27/19 AGE: 69 : 50 SEX: M ROOM/BED: D.2233 AUTHOR: FLOYD,DOC PHYSICIAN: REFERRING PHYSICIAN: GLADYS THOMAS MD DATE OF SERVICE: 08/27/19 Discharge Plan Patient Name: ERENDIRA CUEVAS Facility: [facility]:[place] : 1950 Planned Disposition: Anticipated Discharge Date: Discharge Date: Expected LOS: Initial Reviewer: [email or web address] Initial Review Date: 08/27/2019 Generated: 08/27/19 7:07 pm Comments DCP- Discharge Planning Updated by [email or web address]: Brenda Swenson on 08/27/19 5:[address] CM met with patient to discuss initial discharge planning. Patient is in agreement to proceed with assessment with present. Patient is alert/oriented. Stairs/steps:13/7 w/rails. PCP: Dr. Thomas. Pharmacy: [facility]. Patient states they have been able to obtain all of their prescribed medications. Patient lives alone, in his home. HHS: None. Patient has an aide through [facility]. DME: walker, cane, shower chair. Patient gives permission to speak with family members/care givers. Emergency contact: Ashly Paniagua (dtr) [phone]. Patient is Independent with his ADL's, medication management. CM discussed the availability of HH, Rehab, DME services. Patient denies the need for additional services at this time and feels safe returning to his previous environment. Patient denies being hospitalized within the past 30 days. 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 Transportation at time of discharge: Aaliyah--aide. Her number is located in patient's cell phone. DCPIA - Discharge Planning Initial Assessment Updated by [email or web address]: Brenda Swenson on 08/27/19 5:59 pm * Is the patient Alert and Oriented? Yes * How many steps to enter\exit or inside your home? 13/7 rails * PCP Dr. Thomas * Pharmacy [facility] * Preadmission Environment Home Alone * ADLs Independent * Equipment Cane Rolling Walker Shower Chair * List name and contact numbers for known caregivers / representatives who currently or will assist patient after discharge: Ashly Paniagua (dtr) [phone] Aaliyah (aide) phone number is in his cell phone * Verbal permission to speak to the caregivers and representatives has been obtained from the patient. N/A * Community resources currently utilized Private Duty Care * Additional services required to return to the preadmission environment? No * Can the patient safely return to the preadmission environment? Yes Coverage Notice Reviewer: [id number] Haylee Swenson Notice Issued Date-Time: 08/27/2019 17:20 Notice Type: Medicare Outpatient Observation Notice Notice Delivered To: Patient Relationship to Patient: Self Economics Professor Name: Erendira Cuevas Delivery Method: HAND - Hand Delivered Allie Days: Prior Verbal Notification: Recipient Understood Notice: Yes Recipient Signature: Yes Med Rec Note Co-signed by Attending: Coverage Notice Comment: YOUNG delivered to and signed by patient. Original given to patient and also placed on chart. Last DP export: 08/27/19 5:01 Patient Name: ERENDIRA CUEVAS Page [id number] at 1808 All edits/amendments must be made on the electronic document DICTATION DATE: 08/27/191806 CUTTER OPERATOR: WENDY 08/27/191806 RPT#: [id number] DC DATE: STATUS: ADM IN [facility] [address] [place] [address] END OF REPORT
[2019-08-27 21:00] VITALS: BP 97/46
[2019-08-28 01:17] VITALS: BP 131/53
--- NOTE | 2019-08-28 02:58 | NUR ---
PT HAVING INCONTINENT EPISODES OF DIARRHEA. PT STATES HE DOESN'T KNOW WHEN HE IS GOING TO HAVE BM UNTIL IT HAS ALREADY HAPPENED. DROPLET ISOLATION PRECAUTIONS OBSERVED. NO OTHER NEEDS. WILL CONTINUE TO MONITOR.
[2019-08-28 04:50] VITALS: BP 136/76
[2019-08-28 06:18] LABS: BASOPHILS 0 % (0-2); EOSINOPHILS 0.2 % (0-7); HEMATOCRIT 42.1 % (42.0-54.0); HEMOGLOBIN 14.3 g/dL (13.5-17.5); IMMATURE GRANULOCYTES 0.7 % (0-5); LYMPHOCYTES 10.3 % (15-50); MCH 31.7 pg (26.0-34.0); MCV 93.3 fL (80.0-100.0); MEAN PLATELET VOLUME 10.2 fL (7.4-10.4); MONOCYTES 8.2 % (2-11); NEUTROPHILS 80.6 % (40-80); PLATELET COUNT 192 10x3/uL (130-400); RBC 4.51 10x6/uL (4.20-6.10); RDW 13.6 % (11.5-14.5)
[2019-08-28 06:20] LABS: WBC 5.7 10x3/uL (4.8-10.8)
[2019-08-28 06:47] LABS: ANION GAP 12.3 mmol/L (8-16); CALCIUM 8.3 mg/dL (8.5-10.1); CARBON DIOXIDE 26.6 mmol/L (21.0-32.0); CREATININE - SERUM 1.1 mg/dL (0.6-1.3); MAGNESIUM - SERUM 1.7 mg/dL (1.8-2.4); PHOSPHOROUS 2.1 mg/dL (2.5-4.9); POTASSIUM - SERUM 3.9 mmol/L (3.5-5.1)
--- NOTE | 2019-08-28 07:58 | NUR ---
AWAKE AND ALERT. ORIENTED X3. INCONTINENT OF STOOL. REPORTED THIS WAS ABOUT 5 TIMES. DIDN'T WANT TO BOTHER STAFF TO CLEAN HIM UP. SKIN CARE PER STAFF. REPOSITIONED IN BED FOR COMFORT. LUNGS ARE CLEAR BILATERALLY, NO COUGH NOTED. SKIN IS INTACT WITHOUT REDNESS. IV TO LEFT AC IS PATENT WITHOUT REDNESS AT INSERTION SITE. DENIES NEEDS. GIVEN 4MG IMMODIUM PO FOR DIARRHEA. WILL MONITOR.
[2019-08-28 09:01] VITALS: BP 118/58
--- NOTE | 2019-08-28 10:00 | NUR ---
ATE MOST OF BREAKFAST. TOOK AM MEDS WITHOUT DIFFICULTY. DENIES NEEDS.
--- NOTE | 2019-08-28 12:34 | NUR ---
INCONTINENT OF LOOSE WATERY STOOL. LINENS CHANGED AND BATH GIVEN PER STAFF. LUNCH SERVED IN ROOM.
[2019-08-28 12:51] VITALS: BP 119/59
[2019-08-28 17:01] VITALS: BP 121/60
--- NOTE | 2019-08-28 19:00 | NUR ---
BEDSIDE REPORT RECEIVED AND CARE OF PT ASSUMED. PT LYING ON LEFT SIDE WITH EYES CLOSED. IV TO LEFT AC PATENT WITH NS INFUSING AT 100 ML/HR. WILL MONITOR FOR NEEDS.
--- NOTE | 2019-08-28 20:45 | NUR ---
HS MEDICATIONS GIVEN TO INCLUDE LOMOTIL FOR DIARRHEA. WILL CONTINUE TO MONITOR FOR NEEDS. PT WANTS TO BE LEFT ALONE TO SLEEP.
[2019-08-29 00:29] VITALS: BP 120/57
[2019-08-29 05:30] VITALS: BP 118/54
[2019-08-29 07:12] LABS: BASOPHILS 0.2 % (0-2); EOSINOPHILS 0.4 % (0-7); HEMATOCRIT 41.5 % (42.0-54.0); IMMATURE GRANULOCYTES 0.4 % (0-5); LYMPHOCYTES 17.9 % (15-50); MCHC 33.7 g/dL (31.0-37.0); MCV 94.7 fL (80.0-100.0); MEAN PLATELET VOLUME 10.1 fL (7.4-10.4); MONOCYTES 11.5 % (2-11); NEUTROPHILS 69.6 % (40-80); PLATELET COUNT 167 10x3/uL (130-400); RBC 4.38 10x6/uL (4.20-6.10); RDW 13.3 % (11.5-14.5); WBC 5.6 10x3/uL (4.8-10.8)
[2019-08-29 07:22] LABS: CALCIUM 8.1 mg/dL (8.5-10.1); CARBON DIOXIDE 25.2 mmol/L (21.0-32.0); CHLORIDE - SERUM 102 mmol/L (98-107); GLUCOSE 196 mg/dL (74-106); SODIUM 136 mmol/L (136-145); eGFR NON AFRICAN AMERICAN 79 mL/min (90-120)
[2019-08-29 07:23] LABS: CALC OSMOLALITY 276 mosm/kg (275-300); POTASSIUM - SERUM 4.5 mmol/L (3.5-5.1); UREA NITROGEN 12 mg/dL (7-18)
--- NOTE | 2019-08-29 07:33 | NUR ---
AWAKE AND ALERT. ORIENTED X3. NO C/O AT THIS TIME EXCEPT TIRED OF BEING IN THE BED. WILL GET OOB TODAY. NO DIARRHEA IN PM. LUNGS ARE CLEAR BILATERALLY, NO COUGH NOTED. SKIN IS INTACT WITHOUT REDNESS. IV TO LEFT AC IS PATENT WTIHOUT REDNESS AT INSERTION SITE. DENIES NEEDS.
--- NOTE | 2019-08-29 10:00 | NUR ---
ATE MOST OF BREAKFAST. TOOK AM MEDS WITHOUT DIFFICULTY. NO C/O NAUSEA OR DIARRHEA AFTER EATING.
--- NOTE | 2019-08-29 12:30 | NUR ---
SITTING UP ON SIDE OF BED EATING LUNCH. DENIES NEEDS. NO STOOLS OF YET TODAY.
[2019-08-29 16:12] VITALS: BP 121/49
--- NOTE | 2019-08-29 17:39 | NUR ---
PHYSICAL THERAPY EVAL COMPLETED. QUESTION OF INPATIENT REHAB. CM TO FOLLOW TO ASSIST W/ DISCHARGE PLAN.
--- NOTE | 2019-08-29 18:14 | NUR ---
SAT UP ON SIDE OF BED AND ATE SUPPER. DENIES NEEDS. NO CHANGES NOTED.
--- NOTE | 2019-08-29 19:00 | NUR ---
BEDSIDE REPORT RECEIVED AND CARE OF PT ASSUMED. PT LYING ON LEFT SIDE WITH EYES CLOSED AND EASY RESPIRATIONS. IV TO LEFT AC PATENT WITH NS INFUSING AT 100 ML/HR. WILL MONITOR FOR NEEDS.
[2019-08-29 19:30] VITALS: BP 114/44
--- NOTE | 2019-08-29 20:20 | NUR ---
IV LEAKING. REMOVED WITH CATHETER TIP INTACT. RE-SITED TO RIGHT FA USING 20 GUAGE CATHETER IN ONE STICK. IV FLUIDS RE-STARTED.
--- NOTE | 2019-08-29 21:37 | NUR ---
HS MEDICATIONS GIVEN. WILL CONTINUE TO MONITOR FOR NEEDS.
[2019-08-30 00:30] VITALS: BP 117/67
--- NOTE | 2019-08-30 01:19 | NUR ---
PT RESTING IN SUPINE POSITION WITH EYES CLOSED AND EASY RESPIRATIONS. WILL CONTINUE TO MONITOR FOR NEEDS.
[2019-08-30 05:27] LABS: BASOPHILS 0.2 % (0-2); EOSINOPHILS 1.6 % (0-7); HEMATOCRIT 40.9 % (42.0-54.0); HEMOGLOBIN 13.7 g/dL (13.5-17.5); IMMATURE GRANULOCYTES 0.5 % (0-5); LYMPHOCYTES 22.1 % (15-50); MCH 31.8 pg (26.0-34.0); MCHC 33.5 g/dL (31.0-37.0); MCV 94.9 fL (80.0-100.0); MEAN PLATELET VOLUME 10.3 fL (7.4-10.4); MONOCYTES 13.6 % (2-11); PLATELET COUNT 159 10x3/uL (130-400); RBC 4.31 10x6/uL (4.20-6.10); RDW 13.5 % (11.5-14.5); WBC 5.7 10x3/uL (4.8-10.8)
[2019-08-30 05:31] VITALS: BP 121/72
[2019-08-30 06:16] LABS: CALC OSMOLALITY 282 mosm/kg (275-300); CALCIUM 8.2 mg/dL (8.5-10.1); CARBON DIOXIDE 23.4 mmol/L (21.0-32.0); CHLORIDE - SERUM 104 mmol/L (98-107); CREATININE - SERUM 0.8 mg/dL (0.6-1.3); GLUCOSE 212 mg/dL (74-106); POTASSIUM - SERUM 3.9 mmol/L (3.5-5.1); SODIUM 138 mmol/L (136-145); UREA NITROGEN 14 mg/dL (7-18); eGFR NON AFRICAN AMERICAN > 90 mL/min (90-120)
--- NOTE | 2019-08-30 07:59 | NUR ---
ALERT AND ORIENTED. LUNGS CLEAR BILATERALLY. HEART SOUNDS S1 AND S2 HEARD IN ALL BENAVIDES. BOWEL SOUNDS ACTIVE X 4. SKIN INTACT WITHOUT REDNESS. DENIES NEEDS. BED LOW. CALL RAYMOND AND PERSONAL ITEMS IN REACH. WILL CONTINUE TO MONITOR.
[2019-08-30] MEDS ORDERED: TAMIFLU75 MG PO (08:00)
[2019-08-30 08:14] VITALS: BP 117/57
--- NOTE | 2019-08-30 10:32 | NUR ---
RESTING IN BED. DENIES NEEDS. WILL CONTINUE TO MONITOR.
--- NOTE | 2019-08-30 11:15 | MORECARE ---
CASE MANAGEMENT DISCHARGE SUMMARY PATIENT: ERENDIRA CUEVAS UNIT: [id number] ADM DATE: 08/28/19 AGE: 69 : 50 SEX: M ROOM/BED: D.2233 AUTHOR: FLOYD,DOC PHYSICIAN: REFERRING PHYSICIAN: GLADYS THOMAS MD DATE OF SERVICE: 08/30/19 Discharge Plan Patient Name: ERENDIRA CUEVAS Facility: [facility]:[place] : 1950 Planned Disposition: Anticipated Discharge Date: Discharge Date: Expected LOS: Initial Reviewer: [email or web address] Initial Review Date: 08/27/2019 Generated: 08/30/19 12:15 pm Comments DCP- Discharge Planning Updated by [email or web address]: Love Hutson on 08/30/19 10:[address] MET WITH PATIENT ABOUT INPATIENT REHAB, PATIENT WOULD LIKE TO GO TO [facility] INPATIENT REHAB, INDRA SIGNED. PATIENT ALSO SIGNED WITH [facility] AND PLACED IN CHART. SPOKE WITH [facility] ABOUT REFERRAL THEY WILL ACCEPT PATIENT. WILL GET A DISCHARGE FROM DR THOMSA. CM TO FOLLOW AND ASSIST WITH DC PLANNING DCP- Discharge Planning Updated by [email or web address]: Brenda Swenson on 08/27/19 5:[address] CM met with patient to discuss initial discharge planning. Patient is in agreement to proceed with assessment with present. Patient is alert/oriented. Stairs/steps:13/7 w/rails. PCP: Dr. Thomas. Pharmacy: [facility]. Patient states they have been able to obtain all of their prescribed medications. Patient lives alone, in his home. HHS: None. Patient has an aide through [facility]--Aaliyah. DME: walker, cane, shower chair. Patient gives permission to speak with family members/care givers. Emergency contact: Ashly Paniagua (dtr) [phone]. Patient is Independent with his ADL's, medication management. CM discussed the availability of HH, Rehab, DME services. Patient denies the need for additional services at this time and feels safe returning to his previous environment. Patient denies being hospitalized within the past 30 days. 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 Transportation at time of discharge: Aaliyah--aide. Her number is located in patient's cell phone. DCPIA - Discharge Planning Initial Assessment Updated by [id number]: Brenda Sanderslroy on 08/27/19 5:59 pm * Is the patient Alert and Oriented? Yes * How many steps to enter\exit or inside your home? 13/03 rails * PCP Dr. Thomas * Pharmacy [facility] * Preadmission Environment Home Alone * ADLs Independent * Equipment Cane Rolling Walker Shower Chair * List name and contact numbers for known caregivers / representatives who currently or will assist patient after discharge: Ashly Paniagua (dtr) [phone] Aaliyah (aide) phone number is in his cell phone * Verbal permission to speak to the caregivers and representatives has been obtained from the patient. N/A * Community resources currently utilized Private Duty Care * Additional services required to return to the preadmission environment? No * Can the patient safely return to the preadmission environment? Yes Coverage Notice Reviewer: [id number] - Brenda Sanderslroy Notice Issued Date-Time: 08/27/2019 17:20 Notice Type: Medicare Outpatient Observation Notice Notice Delivered To: Patient Relationship to Patient: Self Operations Scheduler Name: Erendira Cuevas Delivery Method: HAND - Hand Delivered Allie Days: Prior Verbal Notification: Recipient Understood Notice: Yes Recipient Signature: Yes Med Rec Note Co-signed by Attending: Coverage Notice Comment: YOUNG delivered to and signed by patient. Original given to patient and also placed on chart. Last DP export: 08/27/19 5:08 Patient Name: ERENDIRA CUEVAS Page 64739 at 1115 All edits/amendments must be made on the electronic document DICTATION DATE: 08/30/19 1115 NAUMKEAG OPERATOR: WENDY 08/30/19 1115 RPT#: [id number] DC DATE: STATUS: ADM IN [facility] [address] [place] [address] END OF REPORT
[2019-08-30 12:51] VITALS: BP 121/71
--- NOTE | 2019-08-30 13:05 | NUR ---
DISCHARGE EDUCATION PROVIDED BOTH WRITTEN AND VERBAL. VERBALIZED UNDERSTANDING. DENIES FURTHER QUESTIONS. IV REMOVED FROM RFA WITH TIP INTACT. WAITING FOR ROOM IN INPATIENT REHAB FOR PATIENT TO DISCHARGE. STATES HAS NO CLOTHING. WILL GIVE PAPER SCRUBS.
--- NOTE | 2019-08-30 15:45 | NUR ---
REPORT CALLED TO NILTON BOCANEGRA ON REHAB UNIT. DENIES QUESTIONS. PATIENT DISCHARGED TO REHAB ROOM 1115.
--- NOTE | 2019-09-03 14:59 | MORECARE ---
CASE MANAGEMENT DISCHARGE SUMMARY PATIENT: ERENDIRA CUEVAS UNIT: [id number] ADM DATE: 08/28/19 AGE: 69 : 50 SEX: M ROOM/BED: D.2233 AUTHOR: FLOYD,DOC PHYSICIAN: REFERRING PHYSICIAN: GLADYS THOMAS MD DATE OF SERVICE: 09/03/19 Discharge Plan Patient Name: ERENDIRA CUEVAS Facility: [facility]:[place] : 1950 Planned Disposition: Anticipated Discharge Date: Discharge Date: 08/30/2019 Expected LOS: 0 Initial Reviewer: [email or web address] Initial Review Date: 08/27/2019 Generated: 09/03/19 3:58 pm Comments DCP- Discharge Planning Updated by [email or web address]: Love Hutson on 08/30/19 10:[address] MET WITH PATIENT ABOUT INPATIENT REHAB, PATIENT WOULD LIKE TO GO TO [facility] INPATIENT REH[facility], INDRA SIGNED. PATIENT ALSO SIGNED WITH [facility] AND PLACED IN CHART. SPOKE WITH [facility] ABOUT REFERRAL THEY WILL ACCEPT PATIENT. WILL GET A DISCHARGE FROM DR THOMAS. CM TO FOLLOW AND ASSIST WITH DC PLANNING DCP- Discharge Planning Updated by [email or web address]: Brenda Swenson on 08/27/19 5:[address] CM met with patient to discuss initial discharge planning. Patient is in agreement to proceed with assessment with present. Patient is alert/oriented. Stairs/steps:13/7 w/rails. PCP: Dr. Thomas. Pharmacy: [facility]. Patient states they have been able to obtain all of their prescribed medications. Patient lives alone, in his home. HHS: None. Patient has an aide through [facility]--Aaliyah. DME: walker, cane, shower chair. Patient gives permission to speak with family members/care givers. Emergency contact: Ashly Paniagua (dtr) [phone]. Patient is Independent with his ADL's, medication management. CM discussed the availability of HH, Rehab, DME services. Patient denies the need for additional services at this time and feels safe returning to his previous environment. Patient denies being hospitalized within the past 30 days. Patient denies the use of community resources AGRICULTURIST. Transportation at time of discharge: Aaliyah--aide. Her number is located in patient's cell phone. DCPIA - Discharge Planning Initial Assessment Updated by [email or web address]: Brenda Swenson on 08/27/19 5:59 pm * Is the patient Alert and Oriented? Yes * How many steps to enter\exit or inside your home? 13/03 rails * PCP Dr. Thomas * Pharmacy [facility] * Preadmission Environment Home Alone * ADLs Independent * Equipment Cane Rolling Walker Shower Chair * List name and contact numbers for known caregivers / representatives who currently or will assist patient after discharge: Ashly Paniagua (dtr) [phone] Aaliyah (aide) phone number is in his cell phone * Verbal permission to speak to the caregivers and representatives has been obtained from the patient. N/A * Community resources currently utilized Private Duty Care * Additional services required to return to the preadmission environment? No * Can the patient safely return to the preadmission environment? Yes Coverage Notice Reviewer: [id number] - Brenda Leela Notice Issued Date-Time: 08/27/2019 17:20 Notice Type: Medicare Outpatient Observation Notice Notice Delivered To: Patient Relationship to Patient: Self New Car Get Ready Mechanic Name: Erendira Cuevas Delivery Method: HAND - Hand Delivered Allie Days: Prior Verbal Notification: Recipient Understood Notice: Yes Recipient Signature: Yes Med Rec Note Co-signed by Attending: Coverage Notice Comment: YOUNG delivered to and signed by patient. Original given to patient and also placed on chart. Last DP export: 08/30/19 10:15 Patient Name: ERENDIRA CUEVAS Page [phone] at 1459 All edits/amendments must be made on the electronic document DICTATION DATE: 09/03/19 1458 NITROCELLULOSE MAKER: WENDY 09/03/19 1458 RPT#: [id number] DC DATE:08/30/19 STATUS: DIS IN [facility] [address] [facility] [place] [address] END OF REPORT
== END 2019-08-30 16:10 | DRG 864 ==
LOC: D.ER 12:39 → D.MS 15:34 → OBSVTIME 08-28 13:00 → D.MS 08-28 13:02
PROVIDERS: Family Medicine; ADMIT Family Medicine; ATTEND Family Medicine
DX: R50.9 Fever, unspecified (principal); G92 Toxic encephalopathy; E11.9 Type 2 diabetes mellitus without complications; I10 Essential (primary) hypertension; J44.9 Chronic obstructive pulmonary disease, unspecified; M19.90 Unspecified osteoarthritis, unspecified site; R19.7 Diarrhea, unspecified

== ENCOUNTER 2019-08-30 16:06 | Inpatient (IN) | payer MEDICARE ==
[~2019-08-30] VITALS: Ht 190.5 cm; Wt 113.4 kg
[~2019-08-30 16:06] MED LIST changes: +TAMIFLU75 MG PO
[2019-08-30 16:57] VITALS: BMI 31.3
--- NOTE | 2019-08-30 18:50 | NUR ---
BEDSIDE REPORT COMPLETE. PT SITTING UP ON SIDE OF BED VISITING WITH DAUGHTER,. DENIES ANY NEEDS OR PAIN. RR EVEN AND UNLABORED. CL IN REACH. FALL PRECAUTIONS IN PLACE. WILL CONTINUE TO MONITOR
[2019-08-30 21:14] VITALS: BP 121/53
--- NOTE | 2019-08-31 00:44 | NUR ---
QUIET HOURS. PT LYING IN BED ON RIGHT SIDE EYES CLOSED RESTING. RR EVEN AND UNLABORED. CL IN REACH
--- NOTE | 2019-08-31 03:46 | NUR ---
PT LYING IN BED ON LEFT SIDE EYES CLOSED RESTING. RR EVEN AND UNLABORED. CL IN REACH
[2019-08-31 04:36] VITALS: BP 113/40
--- NOTE | 2019-08-31 05:47 | NUR ---
PT LYING IN BED ON LEFT SIDE AWAKE AND ALERT. DENIES ANY NEEDS OR PAIN. RR EVEN AND UNLABORED. CL IN REACH
[2019-08-31 06:37] LABS: CALC OSMOLALITY 279 mosm/kg (275-300); CALCIUM 8.3 mg/dL (8.5-10.1); CARBON DIOXIDE 22.8 mmol/L (21.0-32.0); CHLORIDE - SERUM 104 mmol/L (98-107); GLUCOSE 194 mg/dL (74-106); POTASSIUM - SERUM 3.7 mmol/L (3.5-5.1); SODIUM 137 mmol/L (136-145); UREA NITROGEN 15 mg/dL (7-18); eGFR NON AFRICAN AMERICAN 79 mL/min (90-120)
[2019-08-31 06:59] LABS: BASOPHILS 0.3 % (0-2); EOSINOPHILS 1.5 % (0-7); HEMATOCRIT 41.3 % (42.0-54.0); IMMATURE GRANULOCYTES 1.4 % (0-5); LYMPHOCYTES 18.8 % (15-50); MCH 31.9 pg (26.0-34.0); MCHC 33.9 g/dL (31.0-37.0); MCV 94.1 fL (80.0-100.0); MEAN PLATELET VOLUME 10.7 fL (7.4-10.4); MONOCYTES 12.5 % (2-11); NEUTROPHILS 65.5 % (40-80); RBC 4.39 10x6/uL (4.20-6.10); RDW 13.3 % (11.5-14.5)
[2019-08-31 07:00] LABS: PLATELET COUNT 198 10x3/uL (130-400); WBC 7.2 10x3/uL (4.8-10.8)
--- NOTE | 2019-08-31 08:09 | NUR ---
ALERT AND ORIENTED. EATING BREAKFAST. CL IN REACH.
[2019-08-31 08:13] VITALS: BP 115/63
--- NOTE | 2019-08-31 12:16 | NUR ---
IN DROPLET ISOLATION. IN ROOM AT THIS TIME. NO C/O PAIN. CL IN REACH.
--- NOTE | 2019-08-31 13:15 | NUR ---
CARE TEAM MEETING: PATIENT IS NEW TO UNIT AND WILL BE RA AT NEXT MEETING. WILL CONTINUE TO FOLLOW WITH PATIENT
--- NOTE | 2019-08-31 13:29 | NUR ---
PARTICIPATING IN THERAPY AT [facility] TIME. AMBULATING IN [facility]ORRE WITH PT.
[2019-08-31 13:33] VITALS: Ht 190.5 cm; Wt 113.4 kg
--- NOTE | 2019-08-31 15:50 | NUR ---
NO CHANGE IN ASSESSMENT. RESTING WO DISTRESS. CL IN REACH.
--- NOTE | 2019-08-31 19:23 | NUR ---
GREETED PATIENT AND INTRODUCED MYSELF HIS NURSE. REPOSITIONED PT. IN BED FOR COMFORT. RESPIRATIONS EVEN. NO S/S OF DISTRESS. CALL LIGHT IN REACH.
[2019-08-31 21:13] VITALS: BP 107/39
--- NOTE | 2019-09-01 00:49 | NUR ---
PT. RESTING QUIETLY WITH EYES CLOSED. RESPIRATIONS EVEN. NO S/S OF DISTRESS. CALL LIGHT IN REACH.
--- NOTE | 2019-09-01 06:25 | NUR ---
PT. AWAKE AND SITTING ON SIDE OF BED. DENIES ANY NEEDS AT THIS TIME. CALL LIGHT IN REACH.
[2019-09-01 06:33] LABS: CALC OSMOLALITY 283 mosm/kg (275-300); CALCIUM 9.1 mg/dL (8.5-10.1); CARBON DIOXIDE 24.5 mmol/L (21.0-32.0); CHLORIDE - SERUM 103 mmol/L (98-107); CREATININE - SERUM 0.9 mg/dL (0.6-1.3); GLUCOSE 215 mg/dL (74-106); POTASSIUM - SERUM 3.6 mmol/L (3.5-5.1); SODIUM 138 mmol/L (136-145); UREA NITROGEN 18 mg/dL (7-18); eGFR NON AFRICAN AMERICAN 89 mL/min (90-120)
[2019-09-01 06:48] LABS: BASOPHILS 0.3 % (0-2); EOSINOPHILS 1.7 % (0-7); HEMATOCRIT 41.8 % (42.0-54.0); HEMOGLOBIN 14.3 g/dL (13.5-17.5); IMMATURE GRANULOCYTES 2.4 % (0-5); LYMPHOCYTES 22.8 % (15-50); MCHC 34.2 g/dL (31.0-37.0); MCV 93.5 fL (80.0-100.0); MEAN PLATELET VOLUME 10.8 fL (7.4-10.4); NEUTROPHILS 59.8 % (40-80); PLATELET COUNT 234 10x3/uL (130-400); RBC 4.47 10x6/uL (4.20-6.10); RDW 13.6 % (11.5-14.5); WBC 7.5 10x3/uL (4.8-10.8)
[2019-09-01 08:00] VITALS: BP 135/68
--- NOTE | 2019-09-01 12:12 | NUR ---
RESTING QUIETLY IN BED. NO S/S DISTRESS CALL LIGHT IN REACH
--- NOTE | 2019-09-01 19:31 | NUR ---
GREETED PATIENT AND INTRODUCED MYSELF HIS NURSE. PT. SITTING UP ON SIDE OF BED AT THIS TIME. RESPIRATIONS EVEN. NO S/S OF DISTRESS. CALL LIGHT IN REACH.
[2019-09-01 19:40] VITALS: BP 141/66
--- NOTE | 2019-09-02 00:39 | NUR ---
PT. AWAKE AND SITTING ON SIDE OF BED. DENIES ANY NEEDS AT THIS TIME. CALL LIGHT IN REACH.
[2019-09-02 08:00] VITALS: BP 126/60
[2019-09-02] MEDS ORDERED: HYDROCODON-ACE1 EAC7 PO (09:02)
--- NOTE | 2019-09-02 09:04 | RHP ---
PATIENT: ERENDIRA GONZALEZ MEDICAL RECORD: [id number] ACCOUNT: [id number] LOCATION:[id number] : 50 ADMISSION DATE: 08/30/19 REHABILITATION HISTORY AND PHYSICAL EXAMINATION POST ADMISSION PHYSICIAN EXAMINATION DATE OF ADMISSION TO THE REHAB: 08/30/2019 ADMITTING DIAGNOSES: Disuse atrophy and muscular wasting. HISTORY OF PRESENT ILLNESS: The patient is admitted to the rehab with disuse atrophy and muscular wasting impairment group. The patient is a 69-year-old gentleman who has got a history of fungal abscess of the brain and adult-onset diabetes. He presented to the ED on 08/28/2019 with onset of shaking, chills associated with body aches, nausea and diarrhea. He was moderately confused at that time. He denied any other symptoms. He was alert and oriented at the time of his interview. The patient was admitted to acute hospital with febrile episode associated with altered mental status. CT of his head showed one hyperattenuation area seen in the left posterior bhavana in region previously demonstrated a ring-enhanced lesion suggested mineralization/calcification. He had a small amount of encephalomalacia in his left anterior frontal lobe with overlying craniotomy. No other abnormalities were appreciated. He was started empirically on Tamiflu. He was negative for his flu. He had copious diarrhea. This all resolved in 48 hours. He was weakened with his illness. The patient has self-care deficit, lives alone, has 2 flights of steps with 7 steps each and other 13 steps to get into his house. Has numbness in both his feet, which were all barriers to his discharge. His daughter is involved in his care. He does have a caregiver 4 hours daily in order to assist with ADLs prior to this illness. He was living alone, was able to ambulate household distances without an assistive device and managing his own medications. He is currently mod-to-max assist with ambulating 16 feet with a rolling walker with loss of balance. He will require intensive therapy in order to get back to his same functional state and be able to go home. COMORBIDITIES: Include diabetes, fever, vomiting, diarrhea, history of fungal abscess of the brain, numbness, tingling, stents, angioplasty, PVD, COPD, arthritis, chronic pain in his feet and his legs and also his arm. PAST MEDICAL HISTORY: Significant for neuropathy, fungus. He has got a history of a mass on his kidneys, he has got history of hypertension, coronary artery disease, peripheral vascular disease, COPD, history of chronic pain in his legs and arthritis. PAST SURGICAL HISTORY: Includes he has had a craniotomy, he has had stents and angioplasty in the past. ALLERGIES: ALTACE AND METFORMIN. CURRENT MEDICATIONS: Include Floranex 460 mg daily, spironolactone 25 mg b.i.d., Tamiflu 75 b.i.d., Sporanox 300 mg b.i.d., he is on Norvasc 5 mg at bedtime, propranolol 40 mg every 12 hours, Amaryl 1 mg b.i.d. with meals, Bennett 5/325 one tab every 3 hours p.r.n. and Lomotil as needed. HABITS: No alcohol or tobacco use. HISTORY AND PHYSICAL [id number] ERENDIRA GONZALEZ FAMILY HISTORY: Noncontributory. SOCIAL HISTORY: The patient hopes to return back home and get back to his prior level of functioning. REVIEW OF SYSTEMS: GENERAL: Does complain of weakness and fatigue. HEENT: Denies cold, cough, or congestion. CARDIOVASCULAR: He denies any chest pain. PHYSICAL EXAMINATION: VITAL SIGNS: Stable, afebrile. GENERAL: A morbidly obese gentleman in no acute distress, alert upon exam. HEENT: Normocephalic and atraumatic. Mucosa moist. He does have previous scar to his temporal region of his head from craniotomy. NECK: Supple, with no lymphadenopathy. LUNGS: Clear at this time. No wheezing, rhonchi or rales. HEART: Regular rate and rhythm. No murmurs, rubs, or gallops. ABDOMEN: Soft, benign, and nondistended. Positive bowel sounds times 4. EXTREMITIES: No clubbing, cyanosis or edema. NEUROLOGIC: He does have noted proximal muscle weakness. LABORATORY DATA: White count is 7.2, H&H of 14 and 41, and platelet count is 198. Sodium 137, potassium 3.7, BUN and creatinine of 15 and 1.0 and blood sugar is noted to be 194. ASSESSMENT: This is a 69-year-old gentleman admitted to the rehab with a working diagnosis of muscular wasting and disuse atrophy secondary to a recent febrile illness. The patient has potential to make improvement. We instituted the following multidisciplinary therapies include, but not limited to physical, occupational, respiratory, speech, nutritional services, prosthetics and orthotics. Given his complex medical condition and risks for more complications, rehabilitation services cannot be provided at a low level of care such a snf facility. PLAN: 1. Admit to [facility] for intensive inpatient therapy to include the following disciplines; A. Physical therapy to improve gait, all transfer skills and bed mobility to a modified independent level. B. Occupational therapy to a modified independent level. C. Case management to assist with discharge planning and placement options. D. Nutrition to assist with nutritional needs. E. Rehabilitation nursing to assist in monitoring the patient's underlying medical conditions and to assist with any type of bowel or bladder management. 2. The patient's current medication and medical care will be continued. 3. The patient will be placed on standard fall precautions. 4. We will watch his electrolytes closely including his blood sugar and see again in the a.m. TRANSINT:[id number] Voice Confirmation ID: [id number] DOCUMENT ID: [id number] COMFORT notes whether there has been none or any medical/functional change since admission: HISTORY AND PHYSICAL [id number] ERENDIRA GONZALEZ - No change since prescreen. COMFORT attests patient continues to be appropriate for IRF: - Continues to be appropriate. LISA FINK MD at 0904 CC: [id number] DICTATION DATE: 08/31/19 0856 ASSISTANT PROFESSOR OF LIFE SCIENCES: 08/31/19 1008 ADM IN [facility] [address] [place] [address]
--- NOTE | 2019-09-02 10:36 | NUR ---
SITTING ON SIDE OF BED IN ROOM. REMAINS ON ISOLATION. IS ASKING TO DC TODAY. DENIES NEEDS OR C/O. CALL LIGHT IN REACH
--- NOTE | 2019-09-02 11:53 | NUR ---
SITTING ON SIDE OF BED ANXIOUS TO DC HOME. CALL LIGHT IN REACH
--- NOTE | 2019-09-02 12:12 | NUR ---
PATIENT IS DISCHARGING HOME TODAY.DME AT HOME IS WALKER, CANE AND SHOWER CHAIR. DR. THOMAS 09/10/2019 @ 3:00. PATIENT CHOICE FORM WITH COMPARE DATA FOR HOME HEALTH REVIEWED WITH PATIENT AND HE VOICES UNDERSTANDING. IMFM FORM SIGNED, COPY GIVEN TO PATIENT AND FILED IN CHART. DISCHARGE INSTRUCTIONS FAXED TO PCP, HOME HEALTH AND REVIEWED WITH PATIENT.
--- NOTE | 2019-09-02 14:48 | NUR ---
Nutrition Follow-up: Diet: Regular PO intake: 100% x last 3 meals. He reports a good appetite. Last BM: 09/02/19. WT: 250# (08/31/19) Meds noted: tamiflu, glimepiride. Labs noted: Glu 215mg/dL. Will change to diabetic diet. RD following.
--- NOTE | 2019-09-02 14:57 | NUR ---
DC HOME TODAY. DECLINED TO HAVE ANY MEDS CALLED IN STATING HE HAD ALL THEM AT HOME. GAVE HIM HARD SCRIPT FOR PAIN MEDS. FAMILY COME GOT HIM. LEFT FLOOR IN WC. REVIEWED MEDS AND DC PLAN.
== END 2019-09-02 14:58 | disposition home health service (06) | DRG 558 ==
LOC: D.REHAB 16:06
PROVIDERS: ADMIT Emergency Medicine; ATTEND Emergency Medicine
DX: M62.50 Muscle wasting and atrophy, not elsewhere classified, unspecified site (principal); E11.9 Type 2 diabetes mellitus without complications; R50.9 Fever, unspecified; R11.10 Vomiting, unspecified; R19.7 Diarrhea, unspecified; R20.0 Anesthesia of skin; I73.9 Peripheral vascular disease, unspecified; J44.9 Chronic obstructive pulmonary disease, unspecified; M19.90 Unspecified osteoarthritis, unspecified site; G89.29 Other chronic pain; R53.1 Weakness; R53.81 Other malaise; I10 Essential (primary) hypertension

== ENCOUNTER → 2019-12-29 13:52 | Outpatient (CLI) | payer MEDICARE ==
[2019-08-31 13:33] VITALS: BMI 31.2
[2019-12-29 14:53] LABS: ANION GAP 15.8 mmol/L (8-16); CARBON DIOXIDE 24.2 mmol/L (21.0-32.0); CREATININE - SERUM 1.2 mg/dL (0.6-1.3)
== END | disposition home or self-care (01) ==
LOC: D.LABREF 13:52
PROVIDERS: ATTEND Family Medicine
DX: E11.40 Type 2 diabetes mellitus with diabetic neuropathy, unspecified (principal)

== ENCOUNTER → 2020-02-16 09:30 | Outpatient (CLI) | payer MEDICARE ==
[2019-08-31 13:33] VITALS: BMI 31.2
== END | disposition home or self-care (01) ==
LOC: D.MRI 09:30
PROVIDERS: ATTEND Family Medicine
DX: G06.0 Intracranial abscess and granuloma (principal)

== ENCOUNTER 2020-12-22 09:55 | Inpatient (IN) | payer MEDICARE ==
[~2020-12-22] VITALS: Ht 190.5 cm; Wt 115.7 kg
--- NOTE | ~2020-12-22 | HEMODYNAMI ---
PATIENT:ERENDIRA GONZALEZ MEDICAL RECORD: [id number] : 50 LOCATION:[facility] D.7 ADMISSION DATE: 12/22/20 Generatedon:113:54 Patient name: ERENDIRA GONZALEZ Patient #: [id number] SSN: D OB: 1950 Date of study: 12/25/2020 Page: Of Hemodynamic Procedure Report Patient Data Patient Demographics Procedure consent was obtained First Name: ERENDIRA Gender: Male Last Name: LISA : 1950 [facility] Initial: FRANSISCO Age: 70 year(s) Patient #: [id number] Race: Unknown Additional ID: [id number] Contact details Address: [address] [place] [address] State: [place] City: [facility] [place] Zip code: [address] Past Medical History Allergies Allergen Reaction Date Comments Reported Other allergy 12/25/2020 ramipril, metformin Admission Admission Data Admission Date: 12/22/2020 Admission Time: 9:57 Room #: 2107 Procedure Procedure Types Cath Procedure Peripheral Cath Diagnostic Procedure Miscellaneous Chest Tube Placement Procedure Description Procedure Date Procedure Date: 12/25/2020 Procedure Start Time: 13:40 Procedure Staff Name Function Paras Richards MD Performing Physician GERMAN JAMES RT Monitor Ascencion Drake RT Scrub Loraine Moreno RN Nurse Rosy Tineo RN Nurse Procedure Data Cath Procedure Fluoroscopy Diagnostic fluoroscopy Total fluoroscopy Time: 2.4 time: 2.4 min min Procedure Medications Medication Administration Route Dosage Versed I.V. 1 mg Fentanyl I.V. 50 mcg Lidocaine 1% added to field 20 Heparin Flush Bag added to field 1 bags (1000units/500ml NS) Hemodynamics Rest Pre Cath Intra NCS Post Cath Vital Signs Time Heart Resp SPO2 etCO2 NIBP (mmHg) Rhythm Pain Sedation Rate (ipm) (%) (mmHg) Status Level (bpm) 13:30:20 55 21 97 131/97(100) NSR 0 (11) 10(A) , No pain 13:34:36 63 16 94 0 98/65(87) NSR 0 (11) 10(A) , No pain 13:38:52 63 18 14.9 108/48(87) NSR 0 (11) 10(A) , No pain 13:43:08 62 15 23.2 113/51(87) NSR 0 (11) 8(A) , No pain 13:47:28 62 14 95 8.9 121/53(100) NSR 0 (11) 8(A) , No pain 13:51:54 59 45 99 1.4 103/48(88) NSR 0 (11) 8(A) , No pain 13:53:53 59 11 98 0 114/49(84) NSR 0 (11) 8(A) , No pain Medications Time Medication Route Dose Verified Delivered Reason Notes Effec tiveness by by 13:40:36 Versed I.V. 1 mg Paras Gallegos for Maurice Tineo sedation RN 13:40:48 Fentanyl I.V. 50 Paras Gallegos for mcg Maurice Tineo sedation RN 13:41:07 Lidocaine 1% added 20ml Paras Crain used for to vial Maurice Richards procedure field MD KEARNEY 13:41:19 Heparin Flush added 1 Paras Crain used for Bag to bags Maurice Richards procedure (1000units/500ml field MD KEARNEY NS) Procedure Log Time Note 13:11:04 Ascencion Drake RT (R) (CV) sent for patient. Start room use. 13:11:06 Time tracking: Regular hours (M-F 7:00 - 5:00) 13:11:09 Plan of Care:Hemodynamics will remain stable., Cardiac rhythm will remain stable., Comfort level will be maintained., Respiratory function will remain adequate., Patient/ family verbilizes understanding of procedure., Procedure tolerated without complication., Recovers from procedure without complications.. 13:11:18 Patient received from Med II to IR Alert and oriented. Tansferred to table in Supine position. 13:11:20 Signed procedure consent form obtained from patient. 13:11:20 Warm blankets applied, and serina hugger turned on for patient comfort. 13:11:21 Correct patient and procedure confirmed by team. 13:11:29 ECG and BP/O2 sat monitors applied to patient. 13:11:30 - 13:11:35 H&P Date Dictated: 12/25/2020 Within 30 days and on chart.. 13:11:37 Pre-procedure instructions explained to patient. 13:11:37 Pre-op teaching completed and patient verbalized understanding. 13:11:46 Patient NPO since Midnight. 13:12:01 Patient allergic to Other allergyramipril, metformin 13:12:05 Is the patient allergic to Iodine/contrast media? No. 13:12:13 - 13:12:14 ----Pre-sedation anethsthesia assessment.---- 13:12:16 Previous problem with sedation/anesthesia? No ? 13:12:18 Snore? No 13:12:20 Sleep apnea? No 13:12:21 Deviated septum? No 13:12:25 Sticks out tongue? Yes 13:12:29 Opens mouth fully? Yes 13:12:32 Airway obstruction? No ? 13:12:35 Dentures? Yes out 13:12:37 - 13:23:41 IV started by Rosy Tineo RN inleft forearm with a 20 gauge IV cathete r with 0.9% NaCl at KVO. 13:23:49 Right chest area was prepped with chlora-prep and draped in sterile fashion 13:23:50 Alarms reviewed by Kathy Sarabia. 13:23:51 Sharps counted by scrub and verified by R.N. 13:24:14 Cook Billiary 16fr. Drainage Cath ([id number]) opened to sterile field. 13:29:13 Vital chart was started 13:32:11 ALEX .035 15cm wire ([id number]) opened to sterile field. 13:39:48 Physician arrived 13:39:49 --------ALL STOP TIME OUT------ 13:40:11 Right chest site verified by team. 13:40:16 Procedure started. 13:40:16 Full Disclosure recording started 13:40:36 Versed 1 mg I.V. was administered by Rosy Tineo RN; for sedation; Verbal order read back and verified. 13:40:48 Fentanyl 50 mcg I.V. was administered by Rosy Tineo RN; for sedation; Verbal order read back and verified. 13:41:07 Lidocaine 1% 20ml vial added to field was administered by Paras jensen MD; used for procedure; Verbal order read back and verified. 13:41:19 Heparin Flush Bag (1000units/500ml NS) 1 bags added to field was administered by Paras Richards MD; used for procedure; Verbal order read back and verified. 13:42:12 ALEX .035 15cm wire ([id number]) opened to sterile field. 13:42:12 DILATOR, VESSEL 14/20 opened to sterile field. 13:42:22 Drain bag connector([id number]) opened to sterile field. 13:51:32 Procedure ended.(Physican Out) 13:51:46 Fluoroscopy time 02.40 minutes. 13:51:48 Dose Area Product 10 mGy/cm. 13:51:55 Post-op/insertion site Right Chest area dressed using a 4 x 4 and Tegaderm. 13:52:00 Post procedure instruction explained to patient.Patient verbalizes understanding. 13:52:01 Procedure and supply charges have been captured, reviewed, submitted an d are correct. 13:53:16 See physician's report for complete and final results. 13:53:28 Patient transfered to [facility] with Bed. 13:54:09 End room use (Document Last) 13:54:26 Vital chart was stopped Device Usage Item Name Manufacture Quantity Catalog Hospital Part Current Minima l Lot# / Number Charge Number Stock Stock Serial# Code Cook Billiary [facility] 1 [id number] 16fr. Drainage Cath ([id number]) ALEX .035 15cm [facility] 2 [id number] 5 wire ([id number]) DILATOR, VESSEL [facility] 1 [id number] 5 14/20 Drain bag [facility] 1 [id number] 5 connector([id number]) Signature Audit [place] Stage Time Signature Unsigned Intra-Procedure 12/25/2020 GERMAN JAMES RT 1:54:22 PM (R) [facility] [address] [place] [address]
[2020-12-22] MEDS ORDERED: ALDACTONE50 MG PO (11:00)
[2020-12-22 11:18] VITALS: BP 138/55; BMI 29.3
[2020-12-22 12:24] LABS: HEMATOCRIT 46.7 % (42.0-54.0); HEMOGLOBIN 16.4 g/dL (13.5-17.5); LYMPHOCYTE ABS# 1.14 10x3/uL (1.32-3.57); MCH 32.5 pg (26.0-34.0); MCHC 35.1 g/dL (31.0-37.0); MCV 92.5 fL (80.0-100.0); MEAN PLATELET VOLUME 10.4 fL (7.4-10.4); PLATELET COUNT 266 10x3/uL (130-400); RBC 5.05 10x6/uL (4.20-6.10); RDW 14.2 % (11.5-14.5); WBC 9.2 10x3/uL (4.8-10.8)
[2020-12-22 12:38] LABS: ALBUMIN 3.7 g/dL (3.4-5.0); ALKALINE PHOSPHATASE 117 U/L (30-120); ALT (SGPT) 76 U/L (10-68); BILIRUBIN - TOTAL 0.48 mg/dL (0.2-1.3); CALC OSMOLALITY 282 mosm/kg (275-300); CALCIUM 8.1 mg/dL (8.5-10.1); CARBON DIOXIDE 20.4 mmol/L (21.0-32.0); CHLORIDE - SERUM 102 mmol/L (98-107); GLUCOSE 279 mg/dL (74-106); POTASSIUM - SERUM 4.4 mmol/L (3.5-5.1); PRO BNP 226 pg/mL (0-125); PROTEIN - SERUM 7.3 g/dL (6.4-8.2); SODIUM 136 mmol/L (136-145); UREA NITROGEN 16 mg/dL (7-18); eGFR NON AFRICAN AMERICAN 78 mL/min (90-120)
[2020-12-22 12:40] LABS: CKMB 1.6 U/L (0.0-3.6); CREATINE KINASE 52 UL (21-232); TROPONIN-I < 0.017 ng/mL (0.000-0.060)
[2020-12-22 13:01] LABS: ANISOCYTOSIS OCC; EOSINOPHILS 2 % (0-7); LYMPHOCYTES 9 % (15-50); MONOCYTES 3 % (2-11); NEUTROPHILS 85 % (40-80); PLATELET ESTIMATE NORMAL; POLYCHROMASIA OCC
[2020-12-22 18:06] LABS: CKMB 1.9 U/L (0.0-3.6); CREATINE KINASE 52 UL (21-232)
[2020-12-22 18:07] LABS: TROPONIN-I < 0.017 ng/mL (0.000-0.060)
[2020-12-22 21:31] VITALS: BP 136/58
[2020-12-23 00:09] LABS: CKMB 1.3 U/L (0.0-3.6); CREATINE KINASE 45 UL (21-232)
[2020-12-23 00:11] LABS: TROPONIN-I < 0.017 ng/mL (0.000-0.060)
[2020-12-23 01:11] VITALS: BP 114/57
[2020-12-23 05:19] VITALS: BP 101/57
[2020-12-23 05:20] LABS: BASOPHILS 0.4 % (0-2); EOSINOPHILS 3.4 % (0-7); HEMATOCRIT 44.7 % (42.0-54.0); HEMOGLOBIN 15.5 g/dL (13.5-17.5); IMMATURE GRANULOCYTES 1.3 % (0-5); LYMPHOCYTE ABS# 1.73 10x3/uL (1.32-3.57); LYMPHOCYTES 18.6 % (15-50); MCH 32.6 pg (26.0-34.0); MCHC 34.7 g/dL (31.0-37.0); MCV 93.9 fL (80.0-100.0); MEAN PLATELET VOLUME 10.5 fL (7.4-10.4); MONOCYTES 9.9 % (2-11); NEUTROPHIL ABS# 6.17 10x3/uL (1.78-5.38); NEUTROPHILS 66.4 % (40-80); PLATELET COUNT 260 10x3/uL (130-400); RBC 4.76 10x6/uL (4.20-6.10); WBC 9.3 10x3/uL (4.8-10.8)
[2020-12-23 05:38] LABS: ANION GAP 16.9 mmol/L (8-16); CALCIUM 7.9 mg/dL (8.5-10.1); CARBON DIOXIDE 19.2 mmol/L (21.0-32.0); CREATININE - SERUM 1.1 mg/dL (0.6-1.3); POTASSIUM - SERUM 4.1 mmol/L (3.5-5.1)
[2020-12-23 07:30] VITALS: BP 110/60
[2020-12-23 10:30] VITALS: BP 113/64
[2020-12-23 13:01] VITALS: BMI 29.2
--- NOTE | 2020-12-23 13:35 | NUR ---
I have reviewed this patient and I concur with the Shift Assessment completed by the Licensed Practical Nurse today this shift.
[2020-12-23 15:00] VITALS: BP 109/61
[2020-12-23 21:07] VITALS: BP 162/88
[2020-12-24 01:23] VITALS: BP 113/51
[2020-12-24 05:07] VITALS: BP 99/51
[2020-12-24 06:20] LABS: HEMOGLOBIN 14.8 g/dL (13.5-17.5); LYMPHOCYTE ABS# 1.96 10x3/uL (1.32-3.57); MCH 32.2 pg (26.0-34.0); MCHC 34.4 g/dL (31.0-37.0); MCV 93.5 fL (80.0-100.0); MEAN PLATELET VOLUME 10.5 fL (7.4-10.4); NEUTROPHIL ABS# 6.66 10x3/uL (1.78-5.38); PLATELET COUNT 266 10x3/uL (130-400); RDW 14.3 % (11.5-14.5)
[2020-12-24 06:29] LABS: BASOPHILS 0.3 % (0-2); EOSINOPHILS 2.9 % (0-7); IMMATURE GRANULOCYTES 1.3 % (0-5); LYMPHOCYTES 19.8 % (15-50); NEUTROPHILS 67.7 % (40-80)
[2020-12-24 06:38] LABS: ANION GAP 16.2 mmol/L (8-16); CALCIUM 8.1 mg/dL (8.5-10.1); CARBON DIOXIDE 21.6 mmol/L (21.0-32.0); CREATININE - SERUM 1.1 mg/dL (0.6-1.3)
[2020-12-24 06:39] LABS: POTASSIUM - SERUM 4.8 mmol/L (3.5-5.1)
--- NOTE | 2020-12-24 07:20 | NUR ---
RECIEVE REPORT. ALERT AN ORIENTED X4. RESTING IN BED. NO SIGNS OF DISTRESS. DENIES ANY NEEDS. CONTINUE PLAN OF CARE AND SAFETY PRECAUTIONS.
[2020-12-24 08:07] VITALS: BP 101/60
[2020-12-24 11:22] VITALS: BP 106/63
[2020-12-24 15:18] VITALS: BP 108/62
--- NOTE | 2020-12-24 15:56 | NUR ---
ALERT AND ORIENTED X4. SITTING UP ON SIDE OF BED WATCHING TV. RT CHEST TUBE INTACT. DENIES ANY NEEDS. CONTINUE PLAN OF CARE AND SAFETY PRECAUTIONS.
--- NOTE | 2020-12-24 19:59 | NUR ---
RECIEVED UP IN ROOM. ALERT AND ORIENTED. CHEST TUBE TO RT SIDE. WITH SMALL AMT OF DRAINGE IN CHAMBER. REMAINS ON 3 LITERS OF O2. IV TO RT WRIST. DENIES ANY NEEDS AT TYHIS TIME.
[2020-12-24 20:00] VITALS: BP 126/50
[2020-12-25] VITALS (9 sets, daily range): BP systolic 98–122; BP diastolic 43–62
--- NOTE | 2020-12-25 00:46 | NUR ---
UP AND DOWN NURNEROUS TIMES THIS SHIFT. C/O RT SIDED PAIN WHERE TUBE IS. EXPLAINED TO HIM THAT HE NEEDED TO REST AND THAT ALL THE ACTIVITY IS CAUSING HIS SIDE TO HURT. GAVE TYLENOL PER ORDERS AND ASKED HIM TO LAY DOWN.
--- NOTE | 2020-12-25 07:20 | NUR ---
RECIEVE REPORT. ALERT AND ORIENTED X4. SITTING UP ON SIDE OF BED. NO SIGNS OF DISTRESS. DENIES ANY NEEDS. CONTINUE PLAN OF CARE AND SAFETY PRECAUTIONS.
--- NOTE | 2020-12-25 10:04 | NUR ---
ALERT AND ORIENTED X4. SITTING UP ON SIDE OF BED. CONSENTS FOR NEW CHEST TUBE PLACEMENT SIGNED ON CHART. DENIES ANY NEEDS. CONTINUE PLAN OF CARE AND SAFETY PRECAUTIONS.
--- NOTE | 2020-12-25 13:12 | NUR ---
TAKEN TO PROCEDURE VIA BED.
--- NOTE | 2020-12-25 14:21 | NUR ---
ARRIVE BACK TO ROOM VIA BED FROM PROCEDURE. RT CHEST TUBE REPLACED. RT CHEST TUBE HOOKED TO WALL SUCTION. BP-118/61, HR-58, O2-96% 2L NC. DENIES ANY NEEDS. CONTINUE PLAN OF CARE AND SAFETY PRECAUTIONS.
[2020-12-26 01:20] VITALS: BP 90/59
--- NOTE | 2020-12-26 03:11 | NUR ---
PT UP TO BATHROM COMPLAINS OF PAIN 7/10 R. SIDE CHEST. PRN PAIN MED GIVEN. VSS. WILL CONTINUE TO MONITOR.
[2020-12-26 05:20] VITALS: BP 90/70
--- NOTE | 2020-12-26 05:35 | NUR ---
PT CHEST TUBE AT 110ML. MARKED AND DATED ON CONTAINER.
[2020-12-26 08:00] VITALS: BP 114/64
[2020-12-26 11:00] VITALS: BP 119/71
--- NOTE | 2020-12-26 12:42 | NUR ---
Nutrition Reassessment/Follow-up: Eating well. Denies N/V/C/D, chewing/swallowing difficulties. S/p chest tube exchange yesterday. Diet: Diabetic Wt: 234.4# (12/23)IBW: 196# Last BM: 12/25 Labs noted: Glu 271 Meds noted: Nystatin, Protonix, Humalog, NS @ 40 Est needs: 9642-4843 kcal/day (25-30 kcal/kg IBW) 90-105 g protein/day (1-1.2 g/kg IBW) 2580-6854 mL fluid/day (1 mL/kcal) or per MD -RD will follow up within 7 days if pt still admitted.
[2020-12-26 21:19] VITALS: BP 115/51
[2020-12-27] VITALS (7 sets, daily range): BP systolic 99–128; BP diastolic 41–65; Ht 190.5 cm; Wt 115.7 kg
--- NOTE | 2020-12-27 03:27 | NUR ---
PT COMPLAINS OF 7/10 PAIN AN R.CHEST TUBE SITE. DRESSING IS DRY AND INTACT. NO SWELLING OR BRUISING SEEN. PRN PAIN MEDICATION GIVEN. VSS. RR E/U. WILL CONTINUE TO MONITOR.
--- NOTE | 2020-12-27 05:08 | NUR ---
I have reviewed this patient and I concur with the Shift Assessment completed by the Licensed Practical Nurse today this shift.
--- NOTE | 2020-12-27 06:35 | NUR ---
CHEST TUBE AT 300ML AT 0700. INCREASE BY 110ML.
--- NOTE | 2020-12-27 13:30 | NUR ---
I have reviewed this patient and I concur with the Shift Assessment completed by the Licensed Practical Nurse today this shift.
--- NOTE | 2020-12-27 13:54 | NUR ---
PT LEFT UNIT FOR CT ACCOMPANIED BY HOSPITAL STAFF
[2020-12-27 17:41] LABS: INR 1.12 (0.85-1.17); PROTIME 13.3 SECONDS (11.6-15.0)
[2020-12-27 17:46] LABS: ALBUMIN 3.5 g/dL (3.4-5.0); ANION GAP 14.9 mmol/L (8-16); BILIRUBIN - TOTAL 0.44 mg/dL (0.2-1.3); CALCIUM 9.4 mg/dL (8.5-10.1); CARBON DIOXIDE 21.7 mmol/L (21.0-32.0); CREATININE - SERUM 1.2 mg/dL (0.6-1.3); POTASSIUM - SERUM 4.6 mmol/L (3.5-5.1); PROTEIN - SERUM 7.8 g/dL (6.4-8.2)
[2020-12-27 17:57] LABS: HEMOGLOBIN 15.3 g/dL (13.5-17.5); MCH 32.7 pg (26.0-34.0); MCHC 34.8 g/dL (31.0-37.0); MEAN PLATELET VOLUME 10.1 fL (7.4-10.4); RBC 4.68 10x6/uL (4.20-6.10); RDW 14.1 % (11.5-14.5); WBC 10.6 10x3/uL (4.8-10.8)
[2020-12-27 19:08] LABS: OVA + PARASITE EXAM Final report (())
[2020-12-28] VITALS (24 sets, daily range): BP systolic 87–122; BP diastolic 41–55
[2020-12-28 01:07] LABS: BILIRUBIN NEGATIVE (NEGATIVE); KETONE NEGATIVE (NEGATIVE); NITRITE NEGATIVE (NEGATIVE); UROBILINOGEN NORMAL mg/dL (< 2)
--- NOTE | 2020-12-28 05:34 | NUR ---
IV INFUSING TO LEFT AC SPACE WITHOUT DIFFICULTY. PT IS SOLOMON, CHG BATH DONE LAST NIGHT. LINENS CHANGED. WILL CONTINUE TO MONITOR. WILL HOLD MORNING DOSE OF PROTONIX FOR SURGERY.
--- NOTE | 2020-12-28 07:13 | NUR ---
RECEIVE SHIFT REPORT. RESTING IN BED. O2 NOT ON, PLACED IN NOSE. RESTLESS. RIGHT CHEST TUBE IN PLACE. GOING FOR THORACOTOMY TODAY. WILL FINISH PRE OP CHECKLIST. SAHRA KELLY DID NOT TREAT BLOOD SUGAR BECAUSE PATIENT NPO AND NOT GOING FOR SURGERY UNTIL 1300. DID NOT CHART THAT SHE CHECKED BLOOD SUGAR AND DID NOT GIVE. I CHARTED BLOOD SUGAR THAT CAME BACK WITH MORNING LABS. WILL RECHECK AT LUNCH AND TREAT PER PROTOCOL.
[2020-12-28 07:23] LABS: CALC OSMOLALITY 281 mosm/kg (275-300); CALCIUM 9.1 mg/dL (8.5-10.1); CARBON DIOXIDE 21.1 mmol/L (21.0-32.0); CHLORIDE - SERUM 102 mmol/L (98-107); GLUCOSE 260 mg/dL (74-106); POTASSIUM - SERUM 4.4 mmol/L (3.5-5.1); SODIUM 134 mmol/L (136-145); UREA NITROGEN 26 mg/dL (7-18); eGFR NON AFRICAN AMERICAN 78 mL/min (90-120)
[2020-12-28 08:07] LABS: BASOPHILS 0.2 % (0-2); EOSINOPHILS 3.5 % (0-7); HEMATOCRIT 40.9 % (42.0-54.0); HEMOGLOBIN 13.9 g/dL (13.5-17.5); IMMATURE GRANULOCYTES 1.6 % (0-5); LYMPHOCYTE ABS# 1.42 10x3/uL (1.32-3.57); LYMPHOCYTES 14.9 % (15-50); MCH 32.1 pg (26.0-34.0); MCV 94.5 fL (80.0-100.0); MEAN PLATELET VOLUME 10.4 fL (7.4-10.4); MONOCYTES 9.5 % (2-11); NEUTROPHIL ABS# 6.71 10x3/uL (1.78-5.38); NEUTROPHILS 70.3 % (40-80); PLATELET COUNT 241 10x3/uL (130-400); RBC 4.33 10x6/uL (4.20-6.10); RDW 14.2 % (11.5-14.5); WBC 9.5 10x3/uL (4.8-10.8)
--- NOTE | 2020-12-28 09:48 | MORECARE ---
CASE MANAGEMENT DISCHARGE SUMMARY PATIENT: ERENDIRA GONZALEZ UNIT: [id number] ADM DATE: 12/22/20 AGE: 70 : 50 SEX: M ROOM/BED: D.2107 AUTHOR: THUAN BARRIENTOS PHYSICIAN: REFERRING PHYSICIAN: GLADYS THOMAS MD DATE OF SERVICE: 12/28/20 Case Management Discharge Planning Summary DCP REVIEW SUMMARY ANTICIPATED D/C DATE: EXPECTED LOS : CASE STATUS: DCP Initiated INITIAL REVIEW: 12/28/2020 INITIAL REVIEWER: Jazmyne Roche FINAL DISCHARGE DISPOSITION: : FINAL REVIEWER: FINAL REVIEW DATE: DCP Focus Questions & Answers DCP Evaluation QUESTION: ANSWER Patient gives permission to discuss discharge plans with: (name, relationship and number) : Ashly Sarah DTR - [phone] Patient's ability to cope with chronic illness : d. No chronic illness Patient's current cognitive status: : *Oriented to person, place, situation, time and present Family / Caregiver's ability to cope with chronic illness: : a. Adequate (ability to meet patient's medical needs, ensures patient attends medical appts.) Patient and/or caregiver agree upon recommended discharge plan? : Yes Physical Status: : Compromised skin integrity Physical Status: : Mobility impaired Physical Status: : Partial care dependence Family / Caregiver's ability to cope with chronic illness: : a. Adequate (ability to meet patient's medical needs, ensures patient attends medical appts.) Functional screen assessment: : Unable to manage ADLs without immediate ongoing assistance Does the patient have the ability to pay for or attain post discharge needs / services? : Yes Partial Dependence, assistance required for: : Ambulation / Mobility Partial Dependence, assistance required for: : Bathing Living Arrangements: : Home Alone with Support Is there a likelihood that the patient will require additional services to return to the preadmission environment? : Yes Baseline cognitive status: : *Oriented to person, place, situation, time and present Patient with capacity for self-care or can be cared for in same environment as prior to hospitalization? : No Results of this evaluation have been discussed with: : Patient Other Equipment comments: : May possibly need oxygen on discharge Facility / Agency name and contact information from Question 3 (if applicable): : [facility] Comments: : Patient scheduled for VATS. He may require rehab prior to DC home Physical environment modification needed / anticipated for discharge: : No Medication Management: : Patient states can afford medications Pharmacy name(s): : [facility] Planned post hospital services available for patient? : Yes Does Patient have transportation to get home and to follow-up medical appointments when discharged from the hospital? : Yes Planned post hospital services covered by insurance plan? : Yes Comments: : [employer] [facility] Would patient like to participate in any Care Coordination programs (if applicable): : Not applicable Does the patient have electricity at home? : Yes Does the patient have running water in their house? : Yes Equipment in use: : Cane - Single Leg Equipment in use: : Other Equipment in use: : Transfer Bench Equipment in use: : Walker - Rollator Other Equipment comments: : Medical Alert button Mental health screen: : No mental health history Psychosocial status: : Adult with physical limitations Abuse/Neglect: : None Resources / Services in place: : Private duty care Contact information for resources in use: : [facility] Care DCP Re-evaluation QUESTION: ANSWER Would patient like to participate in any Care Coordination programs (if applicable): : Not applicable PATIENT: ERENDIRA GONZALEZ ENCOUNTER: [id number] MEDICAL RECORD#: [id number] ADMISSION DATE: 12/22/2020 DISCHARGE DATE: ATTENDING MD: GLADYS PATEL : AGE: 70 MARITAL STATUS: D DC PLAN ID: [id number] FACILITY: [facility] PRINTED ON: 12/28/20 9:48 CT All edits/amendments must be made on the electronic document DICTATION DATE: 12/28/20947 MANAGER PHP: WENDY 12/28/20947 RPT#: [id number] DC DATE: STATUS: ADM IN [facility] [address] [place] [address] END OF REPORT
--- NOTE | 2020-12-28 10:10 | MORECARE ---
CASE MANAGEMENT DISCHARGE SUMMARY PATIENT: EREDNIRA GONZALEZ UNIT: [id number] ADM DATE: 12/22/20 AGE: 70 : 50 SEX: M ROOM/BED: D.2105 AUTHOR: FLOYD,DOC PHYSICIAN: REFERRING PHYSICIAN: GLADYS THOMAS MD DATE OF SERVICE: 12/28/20 Case Management Discharge Planning Summary COMMENTS ENTERED DATE: 12/28/20 9:47 CT COMMENT TYPE: Discharge Planning REVIEWER: Jazmyne Roche CM received a consult concerning patient concerns about Medicare paying his acute hospital stay. I informed him that Medicare would pay for his acute stay. He states he's never had any problems before, but wanted to make sure. States he feels reassured. States he lives alone. He has 14 steps to enter his home. States he has [facility] (Aaliyah) come in 5 days a week for 3 hours a day to assist with ADL's. He no longer drives. [employer] delivers his groceries. He uses [employer] transportation for appointments. He ambulates with Rollator walker. He has been to rehab here at [facility] and has used [facility] in the past and would use them again if needed, INDRA signed. [facility] will use [employer] if needed for oxygen. CM will continue to follow and assist with discharge planning/needs. WAP REVIEW SUMMARY ANTICIPATED D/C DATE: EXPECTED LOS : CASE STATUS: DCP Initiated INITIAL REVIEW: 12/28/2020 INITIAL REVIEWER: Jazmyne Roche FINAL DISCHARGE DISPOSITION: : FINAL REVIEWER: FINAL REVIEW DATE: DCP Focus Questions & Answers DCP Evaluation QUESTION: ANSWER Patient gives permission to discuss discharge plans with: (name, relationship and number) : Ashly - DTR - [phone] Patient's ability to cope with chronic illness : d. No chronic illness Patient's current cognitive status: : *Oriented to person, place, situation, time and present Family / Caregiver's ability to cope with chronic illness: : a. Adequate (ability to meet patient's medical needs, ensures patient attends medical appts.) Patient and/or caregiver agree upon recommended discharge plan? : Yes Physical Status: : Compromised skin integrity Physical Status: : Mobility impaired Physical Status: : Partial care dependence Family / Caregiver's ability to cope with chronic illness: : a. Adequate (ability to meet patient's medical needs, ensures patient attends medical appts.) Functional screen assessment: : Unable to manage ADLs without immediate ongoing assistance Does the patient have the ability to pay for or attain post discharge needs / services? : Yes Partial Dependence, assistance required for: : Ambulation / Mobility Partial Dependence, assistance required for: : Bathing Living Arrangements: : Home Alone with Support Is there a likelihood that the patient will require additional services to return to the preadmission environment? : Yes Baseline cognitive status: : *Oriented to person, place, situation, time and present Patient with capacity for self-care or can be cared for in same environment as prior to hospitalization? : No Results of this evaluation have been discussed with: : Patient Other Equipment comments: : May possibly need oxygen on discharge Facility / Agency name and contact information from Question 3 (if applicable): : [facility] Comments: : Patient scheduled for VATS. He may require rehab prior to DC home Physical environment modification needed / anticipated for discharge: : No Medication Management: : Patient states can afford medications Pharmacy name(s): : [facility] [address] Planned post hospital services available for patient? : Yes Does Patient have transportation to get home and to follow-up medical appointments when discharged from the hospital? : Yes Planned post hospital services covered by insurance plan? : Yes Comments: : [employer] [facility] Would patient like to participate in any Care Coordination programs (if applicable): : Not applicable Does the patient have electricity at home? : Yes Does the patient have running water in their house? : Yes Equipment in use: : Cane - Single Leg Equipment in use: : Other Equipment in use: : Transfer Bench Equipment in use: : Walker - Rollator Other Equipment comments: : Medical Alert button Mental health screen: : No mental health history Psychosocial status: : Adult with physical limitations Abuse/Neglect: : None Resources / Services in place: : Private duty care Contact information for resources in use: : [facility] DCP Re-evaluation QUESTION: ANSWER Would patient like to participate in any Care Coordination programs (if applicable): : Not applicable PATIENT: ERENDIRA GONZALEZ ENCOUNTER: [id number] MEDICAL RECORD#: [id number] ADMISSION DATE: 12/22/2020 DISCHARGE DATE: ATTENDING MD: GLADYS PATEL : AGE: 70 MARITAL STATUS: D DC PLAN ID: [id number] FACILITY: [facility] PRINTED ON: 12/28/20 10:09 CT All edits/amendments must be made on the electronic document DICTATION DATE: 12/28/201008 MORTGAGE OPERATIONS MANAGER: WENDY 12/28/20 100 RPT#: [id number] DC DATE: STATUS: ADM IN [facility] [address] [place] [address] END OF REPORT
--- NOTE | 2020-12-28 11:35 | NUR ---
DOWN FOR SURGERY. WILL GO TO CVICU AFTER PROCEDURE. WILL CALL REPORT.
--- NOTE | 2020-12-28 19:00 | NUR ---
RECEIVED PT FROM THE OR TO ROOM CV08. PT ATTACHED TO ICU MONITORS. TEMP CHECK AT THIS TIME SHOWS A TEMP OF 95.5, ALISSA HUGGER APPLIED. PT EXTREMELY DROWSY BUT WILL ARISE WITH STIMULATION. NO S/S OF DISTRESS NOTED AT THIS TIME. WILL CONTINUE TO MONITOR.
[2020-12-29] VITALS (39 sets, daily range): BP systolic 91–132; BP diastolic 30–63
[2020-12-29 05:00] LABS: HEMATOCRIT 38.6 % (42.0-54.0); HEMOGLOBIN 13.2 g/dL (13.5-17.5); MCH 32.4 pg (26.0-34.0); MCHC 34.2 g/dL (31.0-37.0); MCV 94.8 fL (80.0-100.0); MEAN PLATELET VOLUME 10.7 fL (7.4-10.4); RBC 4.07 10x6/uL (4.20-6.10); RDW 14.1 % (11.5-14.5)
[2020-12-29 05:03] LABS: WBC 12.4 10x3/uL (4.8-10.8)
[2020-12-29 05:14] LABS: BILIRUBIN - TOTAL 0.6 mg/dL (0.2-1.3); CALCIUM 7.9 mg/dL (8.5-10.1); CARBON DIOXIDE 18.8 mmol/L (21.0-32.0); CREATININE - SERUM 1.1 mg/dL (0.6-1.3); PROTEIN - SERUM 6.2 g/dL (6.4-8.2)
[2020-12-29 05:23] LABS: ALBUMIN 2.6 g/dL (3.4-5.0); ANION GAP 17.3 mmol/L (8-16); POTASSIUM - SERUM 5.1 mmol/L (3.5-5.1)
--- NOTE | 2020-12-29 12:12 | NUR ---
Nutrition Reassessment/Follow-up: POD 1 VATS. Eating well. Denies N/V, chewing/swallowing difficulty. Diet: Diabetic No new wt; last wt: 234.4# (12/23) Labs noted: Na 132, Glu 363, Ca 7.9, Alb 2.6 Meds noted: Nystatin, Humalog -Nutrition needs unchanged since previous reassessment; no new wt available. -RD follow-up: 01/01
--- NOTE | 2020-12-29 14:38 | OP ---
PATIENT NAME: ERENDIRA GONZALEZ MEDICAL RECORD: [id number] :50 [address] D.CV08 ADMISSION DATE:12/22/20 SURGEON: CHRISTIANO AUGUSTIN MD DATE OF OPERATION: 12/28/2020 SURGEON: Christiano Augustin MD PROCEDURE PERFORMED: 1. Video-assisted thoracoscopic surgery for lysis of right pleural adhesions and resection of apical blebs and bullae. 2. Mechanical and talc pleurodesis. 3. Bronchoscopy. PREOPERATIVE DIAGNOSES: Apical bullous disease with spontaneous pneumothorax. POSTOPERATIVE DIAGNOSES: Apical bullous disease with spontaneous pneumothorax. ANESTHESIA: Double-lumen general endotracheal anesthesia and epidural. ESTIMATED BLOOD LOSS: 200 mL. SPECIMENS: Apical bullae. COMPLICATIONS: None. CONDITION: Stable. DISPOSITION: ICU. OPERATIVE FINDINGS: Dense adhesions to the entire right upper lobe, mostly taken down with thoracoscopic visualization, but at the apex direct visualization through a utility thoracotomy was possible. The lung had large bullae at the apex that were removed by stapling. Progel was used. The inferior pulmonary ligament was freed. Hemostasis was ensured under direct visualization and thoracoscopic visualization. Mechanical and then talc pleurodesis was performed. Bronchoscopy with no endobronchial lesions. 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 PROCEDURE IN DETAIL: The patient was brought to the operating suite. Double-lumen endotracheal anesthesia was obtained. The patient was turned in left lateral decubitus position. Bronchoscopy was performed. The scope was entered in the anterior axillary line. About the 8th interspace, lung was visualized. Most of the middle and lower lobe were free of adhesions. There was no significant effusion. The old chest tube had been removed prior to prepping. There were dense adhesions extending up the entire anterior, lateral and posterior area and dense at the apex. They were taken out as much as possible with thoracoscopic guidance. A small posterolateral thoracotomy was then made at one of the working ports and under direct visualization. The subclavian vessels were freed from the adhesions. Hemostasis was ensured. The lung was inflated to visualize air leak. The apical bullae were stapled with multiple staple lines. Progel was placed along the staple lines. Inferior pulmonary ligament was freed. Thorough irrigation was undertaken. Mechanical pleurodesis and then 3 grams talc was performed. Lung was reinflated. Chest OPERATIVE REPORT [id number] LISAERENDIRA FRANSISCO tube was placed apically and posterolaterally and the wound which had a small section of rib removed was then closed with two muscle layers, subcutaneous and subcuticular. The patient to ICU stable. TRANSINT:[id number] Voice Confirmation ID: [id number] DOCUMENT ID: [id number] CHRISTIANO AUGUSTIN MD at 1438 CC: CLAIRE ADAIR MD and GLADYS THOMAS [id number] DICTATION DATE: 12/28/201813 JOINT CUTTER MACHINE: 12/28/20 183 ADM IN [facility] [address] [place] [place] [id number]
[2020-12-30] VITALS (26 sets, daily range): BP systolic 92–123; BP diastolic 37–65
[2020-12-30 05:15] LABS: BASOPHILS 0.1 % (0-2); EOSINOPHILS 0 % (0-7); HEMATOCRIT 35.2 % (42.0-54.0); HEMOGLOBIN 12.1 g/dL (13.5-17.5); IMMATURE GRANULOCYTES 0.3 % (0-5); LYMPHOCYTES 4.1 % (15-50); MCH 32.6 pg (26.0-34.0); MCHC 34.4 g/dL (31.0-37.0); MCV 94.9 fL (80.0-100.0); MEAN PLATELET VOLUME 10.9 fL (7.4-10.4); MONOCYTES 7.5 % (2-11); NEUTROPHIL ABS# 12.73 10x3/uL (1.78-5.38); PLATELET COUNT 205 10x3/uL (130-400); RBC 3.71 10x6/uL (4.20-6.10); WBC 14.5 10x3/uL (4.8-10.8)
--- NOTE | 2020-12-30 05:51 | NUR ---
Shift summary: Patients vitals WNL. Remains on 3LNC. Chest tubes secure and patent, serosanguenous drainage. Denies any complaints. Pain well controlled with FORM LAYER infusion. See flowsheets for details.
[2020-12-30 05:53] LABS: ALBUMIN 2.4 g/dL (3.4-5.0); BILIRUBIN - TOTAL 0.29 mg/dL (0.2-1.3); CALCIUM 8.1 mg/dL (8.5-10.1); CARBON DIOXIDE 20.4 mmol/L (21.0-32.0); CREATININE - SERUM 1.2 mg/dL (0.6-1.3); POTASSIUM - SERUM 4.4 mmol/L (3.5-5.1)
[2020-12-31] VITALS (23 sets, daily range): BP systolic 95–122; BP diastolic 37–83
[2020-12-31 06:15] LABS: BASOPHILS 0.1 % (0-2); EOSINOPHILS 1.2 % (0-7); HEMATOCRIT 36.3 % (42.0-54.0); HEMOGLOBIN 12.3 g/dL (13.5-17.5); IMMATURE GRANULOCYTES 1.2 % (0-5); LYMPHOCYTES 8.9 % (15-50); MCH 32.4 pg (26.0-34.0); MCHC 33.9 g/dL (31.0-37.0); MCV 95.5 fL (80.0-100.0); MEAN PLATELET VOLUME 10.6 fL (7.4-10.4); MONOCYTES 8.9 % (2-11); NEUTROPHIL ABS# 10.71 10x3/uL (1.78-5.38); NEUTROPHILS 79.7 % (40-80); PLATELET COUNT 212 10x3/uL (130-400); WBC 13.4 10x3/uL (4.8-10.8)
[2020-12-31 07:10] LABS: ALBUMIN 2.4 g/dL (3.4-5.0); ALKALINE PHOSPHATASE 75 U/L (30-120); ALT (SGPT) 38 U/L (10-68); BILIRUBIN - TOTAL 0.48 mg/dL (0.2-1.3); CALC OSMOLALITY 278 mosm/kg (275-300); CALCIUM 8.5 mg/dL (8.5-10.1); CARBON DIOXIDE 23.5 mmol/L (21.0-32.0); CHLORIDE - SERUM 100 mmol/L (98-107); CREATININE - SERUM 0.9 mg/dL (0.6-1.3); PHOSPHOROUS 2.4 mg/dL (2.5-4.9); POTASSIUM - SERUM 4.6 mmol/L (3.5-5.1); PROTEIN - SERUM 6.3 g/dL (6.4-8.2); SODIUM 133 mmol/L (136-145); UREA NITROGEN 26 mg/dL (7-18); eGFR NON AFRICAN AMERICAN 89 mL/min (90-120)
[2020-12-31 07:14] LABS: GLUCOSE 242 mg/dL (74-106)
[2021-01-01] VITALS (21 sets, daily range): BP systolic 109–145; BP diastolic 48–71
[2021-01-01 04:37] LABS: BASOPHILS 0.3 % (0-2); EOSINOPHILS 3.3 % (0-7); HEMATOCRIT 38.4 % (42.0-54.0); HEMOGLOBIN 13.3 g/dL (13.5-17.5); IMMATURE GRANULOCYTES 1.4 % (0-5); LYMPHOCYTE ABS# 1.43 10x3/uL (1.32-3.57); LYMPHOCYTES 12.6 % (15-50); MCH 32.7 pg (26.0-34.0); MCHC 34.6 g/dL (31.0-37.0); MCV 94.3 fL (80.0-100.0); MEAN PLATELET VOLUME 10.5 fL (7.4-10.4); MONOCYTES 9.8 % (2-11); NEUTROPHIL ABS# 8.21 10x3/uL (1.78-5.38); NEUTROPHILS 72.6 % (40-80); PLATELET COUNT 233 10x3/uL (130-400); RBC 4.07 10x6/uL (4.20-6.10); RDW 13.6 % (11.5-14.5); WBC 11.3 10x3/uL (4.8-10.8)
[2021-01-01 04:41] LABS: ALBUMIN 2.4 g/dL (3.4-5.0); ALKALINE PHOSPHATASE 83 U/L (30-120); ALT (SGPT) 41 U/L (10-68); BILIRUBIN - TOTAL 0.45 mg/dL (0.2-1.3); CALC OSMOLALITY 276 mosm/kg (275-300); CALCIUM 8.6 mg/dL (8.5-10.1); CHLORIDE - SERUM 98 mmol/L (98-107); CREATININE - SERUM 0.9 mg/dL (0.6-1.3); GLUCOSE 266 mg/dL (74-106); MAGNESIUM - SERUM 1.8 mg/dL (1.8-2.4); POTASSIUM - SERUM 4.4 mmol/L (3.5-5.1); PROTEIN - SERUM 6.3 g/dL (6.4-8.2); SODIUM 132 mmol/L (136-145); UREA NITROGEN 22 mg/dL (7-18); eGFR NON AFRICAN AMERICAN 89 mL/min (90-120)
--- NOTE | 2021-01-01 05:24 | NUR ---
PATIENT GIVEN CHG BATH, LINEN CHANGED, AND CENTRAL LINE DRESSING CHANGE COMPLETE. PATIENT TOLERATED WELL WITHOUT DIFFICULTY. Gianna JORDAN RN
--- NOTE | 2021-01-01 07:48 | NUR ---
DR AUGUSTIN HERE ON ROUNDS. PT SAT UP ON SIDE OF BED. BREAKFAST TRAY SERVED AND PT IS EATING BREAKFAST. CT DRAINAGE CANNISTER CHANGED.
--- NOTE | 2021-01-01 12:17 | NUR ---
Nutrition Follow-up: POD 4 VATS. Eating well. Glu elevated. Discussed in IDT rounds; Lantus increased. Diet: Diabetic PO intake: 99% avg x 9 meals Wt: 254.6# (01/01) Labs noted: Na 132, Glu 266, Alb 2.4 Meds noted: Humalog, Lantus, Nystatin, Protonix -RD follow-up: 01/03
--- NOTE | 2021-01-01 14:42 | NUR ---
GISELAED AT BS WITH PT. PT SARAY WELL
[2021-01-02] VITALS (20 sets, daily range): BP systolic 115–154; BP diastolic 51–72
[2021-01-02 03:44] LABS: BASOPHILS 0.3 % (0-2); EOSINOPHILS 3.1 % (0-7); HEMATOCRIT 38.4 % (42.0-54.0); HEMOGLOBIN 13.4 g/dL (13.5-17.5); IMMATURE GRANULOCYTES 3.6 % (0-5); LYMPHOCYTE ABS# 1.41 10x3/uL (1.32-3.57); LYMPHOCYTES 12.5 % (15-50); MCH 32.7 pg (26.0-34.0); MCHC 34.9 g/dL (31.0-37.0); MCV 93.7 fL (80.0-100.0); MEAN PLATELET VOLUME 10.4 fL (7.4-10.4); NEUTROPHIL ABS# 7.82 10x3/uL (1.78-5.38); NEUTROPHILS 69.5 % (40-80); PLATELET COUNT 262 10x3/uL (130-400); RDW 13.6 % (11.5-14.5); WBC 11.3 10x3/uL (4.8-10.8)
[2021-01-02 04:04] LABS: ANION GAP 14.1 mmol/L (8-16); CALCIUM 8.4 mg/dL (8.5-10.1); CREATININE - SERUM 1.1 mg/dL (0.6-1.3); POTASSIUM - SERUM 4.1 mmol/L (3.5-5.1)
--- NOTE | 2021-01-02 09:44 | NUR ---
PT BECOMING ANGRY AND CURSING AT THIS AM BRIEFLY.
--- NOTE | 2021-01-02 09:50 | NUR ---
PT UP TO BSC. NO BM BUT DID PASS GAS. AMB ACROSS THE ROOM. SOB. VSS. UP TO CHAIR WITH PT. DR JAMES HERE ON ROUNDS.
[2021-01-03] VITALS (24 sets, daily range): BP systolic 115–164; BP diastolic 44–79
[2021-01-03 05:06] LABS: CALC OSMOLALITY 283 mosm/kg (275-300); CALCIUM 7.8 mg/dL (8.5-10.1); CARBON DIOXIDE 20.8 mmol/L (21.0-32.0); CHLORIDE - SERUM 104 mmol/L (98-107); CREATININE - SERUM 0.9 mg/dL (0.6-1.3); POTASSIUM - SERUM 3.9 mmol/L (3.5-5.1); SODIUM 135 mmol/L (136-145); UREA NITROGEN 28 mg/dL (7-18); eGFR NON AFRICAN AMERICAN 89 mL/min (90-120)
[2021-01-03 05:08] LABS: GLUCOSE 241 mg/dL (74-106)
[2021-01-03 05:12] LABS: BASOPHILS 0.3 % (0-2); HEMATOCRIT 35.7 % (42.0-54.0); HEMOGLOBIN 12.1 g/dL (13.5-17.5); IMMATURE GRANULOCYTES 5.3 % (0-5); LYMPHOCYTE ABS# 1.18 10x3/uL (1.32-3.57); MCH 32.2 pg (26.0-34.0); MCHC 33.9 g/dL (31.0-37.0); MCV 94.9 fL (80.0-100.0); MEAN PLATELET VOLUME 10.8 fL (7.4-10.4); MONOCYTES 8.3 % (2-11); NEUTROPHIL ABS# 9.56 10x3/uL (1.78-5.38); NEUTROPHILS 73.1 % (40-80); PLATELET COUNT 251 10x3/uL (130-400); RBC 3.76 10x6/uL (4.20-6.10); RDW 13.8 % (11.5-14.5); WBC 13.1 10x3/uL (4.8-10.8)
--- NOTE | 2021-01-03 12:09 | NUR ---
Nutrition Follow-up: POD 6 VATS. Eating well. Glu remains elevated; noted Lantus increased. Diet: Diabetic Wt: 257# (01/03) Labs noted: Na 135, Glu 241, Ca 7.8 Meds noted: Lantus, Humalog, Nystatin, Protonix -RD follow-up: 01/05
--- NOTE | 2021-01-03 13:18 | NUR ---
CRUZ DCD TIP INTACT URINAL PROVIDED
--- NOTE | 2021-01-03 13:18 | NUR ---
1200 PT ASSISTED TO BSC, CALL LIGHT WITHIN REACH AND DISCUSSED WITH PT TO USE CALL LIGHT WHEN FINISHED SO I COULD ASSIST HIM OFF OF BSC, PT TRANSFERRED SELF OFF OF BSC, WHEN ASKED WHY HE DID NOT USE CALL LIGHT HE STATED HE HAD FORGOTTEN, ASSISTED TO BED, CALL LIGHT AND CELL PHONE WITHIN REACH, BED ALARM ON AND CHAIR ALARM SET UP IN CHAIR FOR NEXT TIME HE IS OUT OF BED
--- NOTE | 2021-01-03 17:53 | MORECARE ---
CASE MANAGEMENT DISCHARGE SUMMARY PATIENT: ERENDIRA GONZALEZ UNIT: [id number] ADM DATE: 12/22/20 AGE: 70 : 50 SEX: M ROOM/BED: D.[facility] AUTHOR: FLOYD,DOC PHYSICIAN: REFERRING PHYSICIAN: GLADYS THOMAS MD DATE OF SERVICE: 01/03/21 Case Management Discharge Planning Summary COMMENTS ENTERED DATE: 12/28/20 9:47 CT COMMENT TYPE: Discharge Planning REVIEWER: Jazmyne Roche CM received a consult concerning patient concerns about Medicare paying his acute hospital stay. I informed him that Medicare would pay for his acute stay. He states he's never had any problems before, but wanted to make sure. States he feels reassured. States he lives alone. He has 14 steps to enter his home. States he has [facility] (Aaliyah) come in 5 days a week for 3 hours a day to assist with ADL's. He no longer drives. [employer] delivers his groceries. He uses [employer] transportation for appointments. He ambulates with Rollator walker. He has been to rehab here at [facility] and has used [facility] in the past and would use them again if needed, INDRA signed. [facility] will use [employer] if needed for oxygen. CM will continue to follow and assist with discharge planning/needs. MEP REVIEW SUMMARY ANTICIPATED D/C DATE: EXPECTED LOS : CASE STATUS: DCP Initiated INITIAL REVIEW: 12/28/2020 INITIAL REVIEWER: Jazmyne Roche FINAL DISCHARGE DISPOSITION: : FINAL REVIEWER: FINAL REVIEW DATE: DCP Focus Questions & Answers DCP Evaluation QUESTION: ANSWER Patient and/or caregiver agree upon recommended discharge plan? : Yes Patient's current cognitive status: : *Oriented to person, place, situation, time and present Patient's ability to cope with chronic illness : d. No chronic illness Patient gives permission to discuss discharge plans with: (name, relationship and number) : Ashly - DTR - [phone] Family / Caregiver's ability to cope with chronic illness: : a. Adequate (ability to meet patient's medical needs, ensures patient attends medical appts.) Does the patient have the ability to pay for or attain post discharge needs / services? : Yes Functional screen assessment: : Unable to manage ADLs without immediate ongoing assistance Family / Caregiver's ability to cope with chronic illness: : a. Adequate (ability to meet patient's medical needs, ensures patient attends medical appts.) Physical Status: : Compromised skin integrity Physical Status: : Mobility impaired Physical Status: : Partial care dependence Is there a likelihood that the patient will require additional services to return to the preadmission environment? : Yes Living Arrangements: : Home Alone with Support Partial Dependence, assistance required for: : Ambulation / Mobility Partial Dependence, assistance required for: : Bathing Other Equipment comments: : May possibly need oxygen on discharge Results of this evaluation have been discussed with: : Patient Patient with capacity for self-care or can be cared for in same environment as prior to hospitalization? : No Baseline cognitive status: : *Oriented to person, place, situation, time and present Comments: : Patient scheduled for VATS. He may require rehab prior to DC home Physical environment modification needed / anticipated for discharge: : No Facility / Agency name and contact information from Question 3 (if applicable): : [facility] Care Medication Management: : Patient states can afford medications Planned post hospital services available for patient? : Yes Pharmacy name(s): : [facility] [address] Planned post hospital services covered by insurance plan? : Yes Does Patient have transportation to get home and to follow-up medical appointments when discharged from the hospital? : Yes Comments: : [employer] bus Would patient like to participate in any Care Coordination programs (if applicable): : Not applicable Does the patient have electricity at home? : Yes Does the patient have running water in their house? : Yes Equipment in use: : Cane - Single Leg Equipment in use: : Other Equipment in use: : Transfer Bench Equipment in use: : Walker - Rollator Other Equipment comments: : Medical Alert button Mental health screen: : No mental health history Psychosocial status: : Adult with physical limitations Abuse/Neglect: : None Resources / Services in place: : Private duty care Contact information for resources in use: : [facility] DCP Re-evaluation QUESTION: ANSWER Would patient like to participate in any Care Coordination programs (if applicable): : Not applicable PATIENT: ERENDIRA GONZALEZ ENCOUNTER: [id number] MEDICAL RECORD#: [id number] ADMISSION DATE: 12/22/2020 DISCHARGE DATE: ATTENDING MD: GLADYS PATEL : AGE: 70 MARITAL STATUS: D DC PLAN ID: [id number] FACILITY: [facility] PRINTED ON: 01/03/21 17:52 CT All edits/amendments must be made on the electronic document DICTATION DATE: 01/03/211751 REGIONAL GUIDE: WENDY 01/03/211751 RPT#: [id number] DC DATE: STATUS: ADM IN [facility] [address] [place] [address] END OF REPORT
[2021-01-04] VITALS (22 sets, daily range): BP systolic 105–155; BP diastolic 47–117
[2021-01-04 07:07] LABS: HEMATOCRIT 39.2 % (42.0-54.0); HEMOGLOBIN 13.2 g/dL (13.5-17.5); MCH 32.4 pg (26.0-34.0); MCHC 33.7 g/dL (31.0-37.0); MCV 96.1 fL (80.0-100.0); MEAN PLATELET VOLUME 10.9 fL (7.4-10.4); NEUTROPHIL ABS# 9.93 10x3/uL (1.78-5.38); PLATELET COUNT 312 10x3/uL (130-400); RBC 4.08 10x6/uL (4.20-6.10); WBC 14.2 10x3/uL (4.8-10.8)
[2021-01-04 07:10] LABS: ALBUMIN 2.4 g/dL (3.4-5.0); ALKALINE PHOSPHATASE 89 U/L (30-120); ALT (SGPT) 39 U/L (10-68); BILIRUBIN - TOTAL 0.54 mg/dL (0.2-1.3); CALC OSMOLALITY 278 mosm/kg (275-300); CALCIUM 8.5 mg/dL (8.5-10.1); CARBON DIOXIDE 24.8 mmol/L (21.0-32.0); CHLORIDE - SERUM 102 mmol/L (98-107); CREATININE - SERUM 0.9 mg/dL (0.6-1.3); GLUCOSE 196 mg/dL (74-106); MAGNESIUM - SERUM 1.9 mg/dL (1.8-2.4); POTASSIUM - SERUM 4.4 mmol/L (3.5-5.1); PROTEIN - SERUM 6.4 g/dL (6.4-8.2); SODIUM 135 mmol/L (136-145); UREA NITROGEN 25 mg/dL (7-18); eGFR NON AFRICAN AMERICAN 89 mL/min (90-120)
[2021-01-04 07:24] LABS: EOSINOPHILS 6 % (0-7); LYMPHOCYTES 15 % (15-50); MONOCYTES 5 % (2-11); NEUTROPHILS 72 % (40-80); PLATELET ESTIMATE NORMAL
--- NOTE | 2021-01-04 18:34 | NUR ---
UP IN CHAIR FOR ALL MEALS. STANDS WITH WALKER TO VOID. GOOD APPETITE. CHEST TUBE TO WATER SEAL DRAINAGE, AIR LEAK NOTED. DENIES ANY SHORTNESS OF BREATH. WATCH TV.
[2021-01-05] VITALS (22 sets, daily range): BP systolic 107–158; BP diastolic 53–84
[2021-01-05 09:32] LABS: BASOPHILS 0.1 % (0-2); EOSINOPHILS 4.2 % (0-7); HEMATOCRIT 36.2 % (42.0-54.0); HEMOGLOBIN 12.3 g/dL (13.5-17.5); IMMATURE GRANULOCYTES 3.5 % (0-5); LYMPHOCYTES 9.8 % (15-50); MCV 94.3 fL (80.0-100.0); NEUTROPHIL ABS# 7.51 10x3/uL (1.78-5.38); NEUTROPHILS 73.4 % (40-80); PLATELET COUNT 263 10x3/uL (130-400); RBC 3.84 10x6/uL (4.20-6.10); RDW 13.7 % (11.5-14.5)
[2021-01-05 09:33] LABS: WBC 10.2 10x3/uL (4.8-10.8)
[2021-01-05 09:43] LABS: CALC OSMOLALITY 278 mosm/kg (275-300); CALCIUM 8.7 mg/dL (8.5-10.1); CARBON DIOXIDE 25.2 mmol/L (21.0-32.0); CHLORIDE - SERUM 100 mmol/L (98-107); POTASSIUM - SERUM 4.3 mmol/L (3.5-5.1); SODIUM 133 mmol/L (136-145); UREA NITROGEN 20 mg/dL (7-18); eGFR NON AFRICAN AMERICAN 78 mL/min (90-120)
[2021-01-05 09:47] LABS: GLUCOSE 278 mg/dL (74-106)
--- NOTE | 2021-01-05 13:27 | NUR ---
Nutrition Reassessment/Follow-up: POD 8 VATS. Eating well. Glu remains elevated. Noted Lantus increased. Diet: Diabetic PO intake: 75-100% Wt: 255# (01/04) Adj BW: 210.8# Labs noted: Na 133, Glu 278 Meds noted: Lantus, Humalog, Nystatin, Protonix Est needs: 6992-3945 kcal/day (25-30 kcal/kg adj BW) 95-115 g protein/day (1-1.2 g/kg adj BW) 5873-0511 mL fluid/day (1 mL/kcal) or per MD -RD follow-up: 01/08
[2021-01-06] VITALS (18 sets, daily range): BP systolic 110–150; BP diastolic 42–65
[2021-01-06 05:15] LABS: BASOPHILS 0.3 % (0-2); EOSINOPHILS 5.7 % (0-7); HEMATOCRIT 37.3 % (42.0-54.0); HEMOGLOBIN 12.7 g/dL (13.5-17.5); IMMATURE GRANULOCYTES 4.8 % (0-5); LYMPHOCYTE ABS# 1.33 10x3/uL (1.32-3.57); LYMPHOCYTES 14.2 % (15-50); MCH 32.1 pg (26.0-34.0); MCV 94.2 fL (80.0-100.0); MEAN PLATELET VOLUME 10.2 fL (7.4-10.4); MONOCYTES 9.6 % (2-11); NEUTROPHIL ABS# 6.13 10x3/uL (1.78-5.38); NEUTROPHILS 65.4 % (40-80); PLATELET COUNT 290 10x3/uL (130-400); RBC 3.96 10x6/uL (4.20-6.10); RDW 13.5 % (11.5-14.5); WBC 9.4 10x3/uL (4.8-10.8)
[2021-01-06 05:25] LABS: CALC OSMOLALITY 275 mosm/kg (275-300); CALCIUM 8.9 mg/dL (8.5-10.1); CARBON DIOXIDE 24.1 mmol/L (21.0-32.0); CHLORIDE - SERUM 102 mmol/L (98-107); CREATININE - SERUM 0.8 mg/dL (0.6-1.3); GLUCOSE 166 mg/dL (74-106); POTASSIUM - SERUM 4.3 mmol/L (3.5-5.1); SODIUM 135 mmol/L (136-145); UREA NITROGEN 17 mg/dL (7-18); eGFR NON AFRICAN AMERICAN > 90 mL/min (90-120)
[2021-01-07] VITALS (20 sets, daily range): BP systolic 95–145; BP diastolic 46–75
[2021-01-07 04:36] LABS: BASOPHILS 0.3 % (0-2); HEMATOCRIT 38.4 % (42.0-54.0); HEMOGLOBIN 13.1 g/dL (13.5-17.5); IMMATURE GRANULOCYTES 4.6 % (0-5); LYMPHOCYTE ABS# 1.25 10x3/uL (1.32-3.57); LYMPHOCYTES 13.4 % (15-50); MCH 32.1 pg (26.0-34.0); MCHC 34.1 g/dL (31.0-37.0); MCV 94.1 fL (80.0-100.0); MEAN PLATELET VOLUME 9.9 fL (7.4-10.4); MONOCYTES 11.1 % (2-11); NEUTROPHIL ABS# 6.12 10x3/uL (1.78-5.38); NEUTROPHILS 65.6 % (40-80); PLATELET COUNT 295 10x3/uL (130-400); RBC 4.08 10x6/uL (4.20-6.10); RDW 13.7 % (11.5-14.5); WBC 9.3 10x3/uL (4.8-10.8)
[2021-01-07 04:39] LABS: CALC OSMOLALITY 277 mosm/kg (275-300); CALCIUM 8.9 mg/dL (8.5-10.1); CARBON DIOXIDE 25.7 mmol/L (21.0-32.0); CHLORIDE - SERUM 103 mmol/L (98-107); GLUCOSE 178 mg/dL (74-106); SODIUM 136 mmol/L (136-145); UREA NITROGEN 19 mg/dL (7-18); eGFR NON AFRICAN AMERICAN 78 mL/min (90-120)
--- NOTE | 2021-01-07 11:06 | NUR ---
COMPLETE HIBCLENS BATH GIVEN. LEFT CHEST TUBE DRESSING CHANGE DONE CHEST TUBE SITE DEEP PINK. INCISIONS ON BACK AND RIGHT LATERAL HEALING NO REDNESS OR DRAINAGE NOTED. WARM BLANKETS APPLIED. UP IN CHAIR AT BEDSIDE. LOWER LEGS BROWN, LOTION APPLIED. NO OPEN AREA NOTED. NO SKIN BREAKDOWN NOTED. PATIENT AMBULATES WITH WALKER, GAIT UNSTEADY, UNDERSTAND TO MOVE SLOWLY. CHEST TUBE WITH AIR LEAK, WATER SEAL
--- NOTE | 2021-01-07 18:06 | NUR ---
UP AMBULATING IN ROOM WITH WALKER STILL HAS UNSTEADY GAIT. GOOD HUMOR. NAPPING OFF AND ON TODAY. FAMILY HERE UPDATES GIVEN. NO DISTRESS. GOOD APPETITE. VOIDING STANDING IN URINAL
[2021-01-08] VITALS (18 sets, daily range): BP systolic 99–160; BP diastolic 32–84
--- NOTE | 2021-01-08 06:00 | NUR ---
PT IS REFUSING TO WEAR BP CUFF, PT EDUCATED ON PURPOSE OF CONTINUOUS VITAL SIGN READINGS
[2021-01-08 08:01] LABS: BASOPHILS 0.3 % (0-2); EOSINOPHILS 4.6 % (0-7); HEMATOCRIT 35.8 % (42.0-54.0); HEMOGLOBIN 12.2 g/dL (13.5-17.5); IMMATURE GRANULOCYTES 2.2 % (0-5); LYMPHOCYTE ABS# 1.21 10x3/uL (1.32-3.57); LYMPHOCYTES 12.1 % (15-50); MCH 32.2 pg (26.0-34.0); MCHC 34.1 g/dL (31.0-37.0); MCV 94.5 fL (80.0-100.0); MEAN PLATELET VOLUME 10.1 fL (7.4-10.4); MONOCYTES 8.8 % (2-11); NEUTROPHIL ABS# 7.18 10x3/uL (1.78-5.38); PLATELET COUNT 299 10x3/uL (130-400); RBC 3.79 10x6/uL (4.20-6.10); RDW 13.7 % (11.5-14.5)
[2021-01-08 08:08] LABS: CALC OSMOLALITY 278 mosm/kg (275-300); CALCIUM 8.9 mg/dL (8.5-10.1); CARBON DIOXIDE 24.7 mmol/L (21.0-32.0); CHLORIDE - SERUM 103 mmol/L (98-107); GLUCOSE 179 mg/dL (74-106); POTASSIUM - SERUM 4.5 mmol/L (3.5-5.1); SODIUM 136 mmol/L (136-145); UREA NITROGEN 22 mg/dL (7-18); eGFR NON AFRICAN AMERICAN 78 mL/min (90-120)
--- NOTE | 2021-01-08 09:20 | NUR ---
AMBULATED WITH PHYSICAL THERAPY. TOLERATED WELL.
--- NOTE | 2021-01-08 09:50 | NUR ---
Nutrition Follow-up: POD 11. Eating well. Diet: Diabetic PO intake: 100% x 9 meals (01/05-01/07) Wt: 232# (01/06) Labs noted: Glu 179 Meds noted: Lantus, Humalog, Nystatin, Protonix -RD follow-up: 01/10
--- NOTE | 2021-01-08 15:49 | NUR ---
22 G PIV INSERTED TO RIGHT FOREARM X 2 ASSIST. PT TOLERATED WELL.
--- NOTE | 2021-01-08 17:46 | NUR ---
SITTING ON SIDE OF BED. MEAL TRAY DELIVERED AND SET UP. DENIES OTHER NEEDS AT THIS TIME.
[2021-01-09] VITALS (16 sets, daily range): BP systolic 117–164; BP diastolic 51–77
--- NOTE | 2021-01-09 11:39 | MORECARE ---
CASE MANAGEMENT DISCHARGE SUMMARY PATIENT: ERENDIRA GONZALEZ UNIT: [id number] ADM DATE: 12/22/20 AGE: 70 : 50 SEX: M ROOM/BED: D.[facility] AUTHOR: FLOYD,DOC PHYSICIAN: REFERRING PHYSICIAN: GLADYS THOMAS MD DATE OF SERVICE: 01/09/21 Case Management Discharge Planning Summary COMMENTS ENTERED DATE: 01/09/21 11:29 CT COMMENT TYPE: Discharge Planning REVIEWER: Ariadna Carlson CM SPOKE WITH DIAMOND IN [facility] WHO STATES THAT SHE IS SCREENING PATIENT INFORMATION AND WILL COMMUNICATE A DECISION FOR ACCEPTANCE SOON. CM SPOKE WITH PATIENT AND SERVED IMM, PATIENT VERBALIZED UNDERSTANDING AND SIGNED, PATIENT GIVEN FORM AND SIGNED COPY PLACED ON PATIENT CHART. ENTERED DATE: 12/28/20 9:47 CT COMMENT TYPE: Discharge Planning REVIEWER: Jazmyne Roche CM received a consult concerning patient concerns about Medicare paying his acute hospital stay. I informed him that Medicare would pay for his acute stay. He states he's never had any problems before, but wanted to make sure. States he feels reassured. States he lives alone. He has 14 steps to enter his home. States he has [facility] (Aaliyah) come in 5 days a week for 3 hours a day to assist with ADL's. He no longer drives. [employer] delivers his groceries. He uses [employer] transportation for appointments. He ambulates with Rollator walker. He has been to rehab here at [facility] and has used [facility] in the past and would use them again if needed, INDRA signed. States will use [facility] if needed for oxygen. CM will continue to follow and assist with discharge planning/needs. DCP REVIEW SUMMARY ANTICIPATED D/C DATE: EXPECTED LOS : CASE STATUS: DCP Initiated INITIAL REVIEW: 12/28/2020 INITIAL REVIEWER: Jazmyne Roche FINAL DISCHARGE DISPOSITION: : FINAL REVIEWER: FINAL REVIEW DATE: DCP Focus Questions & Answers DCP Evaluation QUESTION: ANSWER Patient and/or caregiver agree upon recommended discharge plan? : Yes Family / Caregiver's ability to cope with chronic illness: : a. Adequate (ability to meet patient's medical needs, ensures patient attends medical appts.) Patient's current cognitive status: : *Oriented to person, place, situation, time and present Patient's ability to cope with chronic illness : d. No chronic illness Patient gives permission to discuss discharge plans with: (name, relationship and number) : Ashly Sarah - DTR - [phone] Does the patient have the ability to pay for or attain post discharge needs / services? : Yes Functional screen assessment: : Unable to manage ADLs without immediate ongoing assistance Family / Caregiver's ability to cope with chronic illness: : a. Adequate (ability to meet patient's medical needs, ensures patient attends medical appts.) Physical Status: : Partial care dependence Physical Status: : Mobility impaired Physical Status: : Compromised skin integrity Is there a likelihood that the patient will require additional services to return to the preadmission environment? : Yes Living Arrangements: : Home Alone with Support Partial Dependence, assistance required for: : Bathing Partial Dependence, assistance required for: : Ambulation / Mobility Other Equipment comments: : May possibly need oxygen on discharge Results of this evaluation have been discussed with: : Patient Patient with capacity for self-care or can be cared for in same environment as prior to hospitalization? : No Baseline cognitive status: : *Oriented to person, place, situation, time and present Physical environment modification needed / anticipated for discharge: : No Comments: : Patient scheduled for [facility]. He may require rehab prior to DC home Facility / Agency name and contact information from Question 3 (if applicable): : [facility] Care Medication Management: : Patient states can afford medications Planned post hospital services available for patient? : Yes Pharmacy name(s): : [facility] Planned post hospital services covered by insurance plan? : Yes Does Patient have transportation to get home and to follow-up medical appointments when discharged from the hospital? : Yes Would patient like to participate in any Care Coordination programs (if applicable): : Not applicable Comments: : [employer] bus Does the patient have electricity at home? : Yes Does the patient have running water in their house? : Yes Equipment in use: : Walker - Rollator Equipment in use: : Transfer Bench Equipment in use: : Other Equipment in use: : Cane - Single Leg Other Equipment comments: : Medical Alert button Mental health screen: : No mental health history Psychosocial status: : Adult with physical limitations Abuse/Neglect: : None Resources / Services in place: : Private duty care Contact information for resources in use: : [facility] DCP Re-evaluation QUESTION: ANSWER Would patient like to participate in any Care Coordination programs (if applicable): : Not applicable PATIENT: ERENDIRA GONZALEZ ENCOUNTER: [id number] MEDICAL RECORD#: [id number] ADMISSION DATE: 12/22/2020 DISCHARGE DATE: ATTENDING MD: GLADYS PATEL : AGE: 70 MARITAL STATUS: D DC PLAN ID: [id number] FACILITY: [facility] PRINTED ON: 01/09/21 11:39 CT All edits/amendments must be made on the electronic document DICTATION DATE: 01/09/211138 CIGAR PACKER AND SHADER: WENDY 01/09/211138 RPT#: [id number] DC DATE: STATUS: ADM IN [facility] [address] [place] [address] END OF REPORT
[2021-01-09] MEDS ORDERED: IPRAT-ALBUT 0.5-3 ML UPD (15:27)
[2021-01-09] MEDS ORDERED: PROPRANOLOL HCL20 MG PO (15:28)
[2021-01-09] MEDS ORDERED: GABAPENTIN100 MG PO (15:30)
[2021-01-09] MEDS ORDERED: LOW DOSE ASPIRI81 M1 PO (15:30)
[2021-01-09] MEDS ORDERED: PERCOCET 5-3251 TAB PO (15:31)
[2021-01-09] MEDS ORDERED: FLUTICASONE PRO16 GM NASAL (15:32)
[2021-01-09] MEDS ORDERED: PULMICORT0.5 MG/21 UPD (15:32)
[2021-01-09] MEDS ORDERED: ZOFRAN INJ IV (15:33)
[2021-01-09] MEDS ORDERED: PROTONIX40 MG PO (15:33)
[2021-01-09] MEDS ORDERED: LANTUS SOL100 UNIT/2 SC (15:35)
[2021-01-09] MEDS ORDERED: HUMALOG 30100 UNITS/ SC (15:36)
--- NOTE | 2021-01-09 17:58 | MORECARE ---
CASE MANAGEMENT DISCHARGE SUMMARY PATIENT: ERENDIRA GONZALEZ UNIT: [id number] ADM DATE: 12/22/20 AGE: 70 : 50 SEX: M ROOM/BED: D.[facility] AUTHOR: FLOYD,DOC PHYSICIAN: REFERRING PHYSICIAN: GLADYS THOMAS MD DATE OF SERVICE: 01/09/21 Case Management Discharge Planning Summary COMMENTS ENTERED DATE: 01/09/21 11:29 CT COMMENT TYPE: Discharge Planning REVIEWER: Ariadna Carlson CM SPOKE WITH DIAMOND IN [facility] WHO STATES THAT SHE IS SCREENING PATIENT INFORMATION AND WILL COMMUNICATE A DECISION FOR ACCEPTANCE SOON. CM SPOKE WITH PATIENT AND SERVED IMM, PATIENT VERBALIZED UNDERSTANDING AND SIGNED, PATIENT GIVEN FORM AND SIGNED COPY PLACED ON PATIENT CHART. ENTERED DATE: 12/28/20 9:47 CT COMMENT TYPE: Discharge Planning REVIEWER: Jazmyne Roche CM received a consult concerning patient concerns about Medicare paying his acute hospital stay. I informed him that Medicare would pay for his acute stay. He states he's never had any problems before, but wanted to make sure. States he feels reassured. States he lives alone. He has 14 steps to enter his home. States he has [facility] ([facility]aliyah) come in 5 days a week for 3 hours a day to assist with ADL's. He no longer drives. [employer] delivers his groceries. He uses [employer] transportation for appointments. He ambulates with Rollator walker. He has been to rehab here at [facility] and has used [facility] in the past and would use them again if needed, INDRA signed. States will use [facility] if needed for oxygen. CM will continue to follow and assist with discharge planning/needs. DCP REVIEW SUMMARY ANTICIPATED D/C DATE: EXPECTED LOS : CASE STATUS: DCP Initiated INITIAL REVIEW: 12/28/2020 INITIAL REVIEWER: Jazmyne Roche FINAL DISCHARGE DISPOSITION: : FINAL REVIEWER: FINAL REVIEW DATE: DCP Focus Questions & Answers DCP Evaluation QUESTION: ANSWER Patient and/or caregiver agree upon recommended discharge plan? : Yes Family / Caregiver's ability to cope with chronic illness: : a. Adequate (ability to meet patient's medical needs, ensures patient attends medical appts.) Patient's current cognitive status: : *Oriented to person, place, situation, time and present Patient's ability to cope with chronic illness : d. No chronic illness Patient gives permission to discuss discharge plans with: (name, relationship and number) : Ashly Sarah - DTR - [phone] Does the patient have the ability to pay for or attain post discharge needs / services? : Yes Functional screen assessment: : Unable to manage ADLs without immediate ongoing assistance Family / Caregiver's ability to cope with chronic illness: : a. Adequate (ability to meet patient's medical needs, ensures patient attends medical appts.) Physical Status: : Partial care dependence Physical Status: : Mobility impaired Physical Status: : Compromised skin integrity Is there a likelihood that the patient will require additional services to return to the preadmission environment? : Yes Living Arrangements: : Home Alone with Support Partial Dependence, assistance required for: : Bathing Partial Dependence, assistance required for: : Ambulation / Mobility Other Equipment comments: : May possibly need oxygen on discharge Results of this evaluation have been discussed with: : Patient Patient with capacity for self-care or can be cared for in same environment as prior to hospitalization? : No Baseline cognitive status: : *Oriented to person, place, situation, time and present Physical environment modification needed / anticipated for discharge: : No Comments: : Patient scheduled for VATS. He may require rehab prior to DC home Facility / Agency name and contact information from Question 3 (if applicable): : [facility] Care Medication Management: : Patient states can afford medications Planned post hospital services available for patient? : Yes Pharmacy name(s): : [facility] Planned post hospital services covered by insurance plan? : Yes Does Patient have transportation to get home and to follow-up medical appointments when discharged from the hospital? : Yes Would patient like to participate in any Care Coordination programs (if applicable): : Not applicable Comments: : [employer] bus Does the patient have electricity at home? : Yes Does the patient have running water in their house? : Yes Equipment in use: : Walker - Rollator Equipment in use: : Transfer Bench Equipment in use: : Other Equipment in use: : Cane - Single Leg Other Equipment comments: : Medical Alert button Mental health screen: : No mental health history Psychosocial status: : Adult with physical limitations Abuse/Neglect: : None Resources / Services in place: : Private duty care Contact information for resources in use: : [facility] DCP Re-evaluation QUESTION: ANSWER Would patient like to participate in any Care Coordination programs (if applicable): : Not applicable PATIENT: ERENDIRA GONZALEZ ENCOUNTER: [id number] MEDICAL RECORD#: [id number] ADMISSION DATE: 12/22/2020 DISCHARGE DATE: 01/09/2021 ATTENDING MD: GLADYS PATEL : AGE: 70 MARITAL STATUS: D DC PLAN ID: [id number] FACILITY: [facility] PRINTED ON: 01/09/21 17:58 CT All edits/amendments must be made on the electronic document DICTATION DATE: 01/09/211757 BILLING AND INSURANCE COORDINATOR: WENDY 01/09/211757 RPT#: [id number] DC DATE:01/09/21 STATUS: DIS IN [facility] [address] [place] [address] END OF REPORT
== END 2021-01-09 17:51 | DRG 163 ==
LOC: OBSVTIME 09:55 → D.M2 09:55 → D.CVICU 09:57
PROVIDERS: Internal Medicine Pulmonary Disease; Thoracic Surgery (Cardiothoracic Vascular Surgery); ADMIT Family Medicine; ATTEND Family Medicine
PROC: 0W9930Z Drainage of Right Pleural Cavity with Drainage Device, Percutaneous Approach (ICD-10-PCS; 2020-12-22)
PROC: 0W29X0Z Change Drainage Device in Right Pleural Cavity, External Approach (ICD-10-PCS; 2020-12-25)
PROC: 0B5N4ZZ Destruction of Right Pleura, Percutaneous Endoscopic Approach (ICD-10-PCS; principal; 2020-12-28 13:00)
PROC: 0BT Respiratory System, Resection (ICD-10-PCS; 2020-12-28 13:00)
DX: J93.83 Other pneumothorax (principal); J96.01 Acute respiratory failure with hypoxia; L02.212 Cutaneous abscess of back [any part, except buttock and flank]; I10 Essential (primary) hypertension; G93.89 Other specified disorders of brain; I70.209 Unspecified atherosclerosis of native arteries of extremities, unspecified extremity; J43.8 Other emphysema; R19.7 Diarrhea, unspecified; E11.9 Type 2 diabetes mellitus without complications; J93.82 Other air leak; F17.200 Nicotine dependence, unspecified, uncomplicated

== ENCOUNTER 2021-01-09 17:36 | Inpatient (IN) | payer MEDICARE ==
[~2021-01-09] VITALS: Ht 190.5 cm; Wt 106.1 kg
[~2021-01-09 17:36] MED LIST changes: +ALDACTONE50 MG PO; +FLUTICASONE PRO16 GM NASAL; +GABAPENTIN100 MG PO; +HUMALOG 30100 UNITS/ SC; +IPRAT-ALBUT 0.5-3 ML UPD; +LANTUS SOL100 UNIT/2 SC; +LOW DOSE ASPIRI81 M1 PO; +PERCOCET 5-3251 TAB PO; +PROPRANOLOL HCL20 MG PO; +PROTONIX40 MG PO; +PULMICORT0.5 MG/21 UPD; +ZOFRAN INJ IV
[2021-01-09 19:58] VITALS: BP 135/52
[2021-01-09 22:53] VITALS: BP 122/62; BMI 29.3
[2021-01-10 07:15] LABS: BASOPHILS 0.1 % (0-2); EOSINOPHILS 2.8 % (0-7); HEMATOCRIT 37.2 % (42.0-54.0); HEMOGLOBIN 12.3 g/dL (13.5-17.5); IMMATURE GRANULOCYTES 1.9 % (0-5); LYMPHOCYTE ABS# 1.23 10x3/uL (1.32-3.57); LYMPHOCYTES 13.2 % (15-50); MCH 31.4 pg (26.0-34.0); MCHC 33.1 g/dL (31.0-37.0); MCV 94.9 fL (80.0-100.0); MEAN PLATELET VOLUME 10.2 fL (7.4-10.4); NEUTROPHIL ABS# 6.87 10x3/uL (1.78-5.38); PLATELET COUNT 316 10x3/uL (130-400); RBC 3.92 10x6/uL (4.20-6.10); RDW 13.7 % (11.5-14.5); WBC 9.3 10x3/uL (4.8-10.8)
[2021-01-10 07:26] LABS: CALC OSMOLALITY 280 mosm/kg (275-300); CALCIUM 9.3 mg/dL (8.5-10.1); CARBON DIOXIDE 23.7 mmol/L (21.0-32.0); CHLORIDE - SERUM 106 mmol/L (98-107); GLUCOSE 135 mg/dL (74-106); POTASSIUM - SERUM 4.1 mmol/L (3.5-5.1); SODIUM 139 mmol/L (136-145); eGFR NON AFRICAN AMERICAN 78 mL/min (90-120)
[2021-01-10 07:33] LABS: UREA NITROGEN 15 mg/dL (7-18)
[2021-01-10 07:51] VITALS: BP 129/68
--- NOTE | 2021-01-10 08:00 | NUR ---
PATIENT IS ALERT/ORIENT. SITTING UP AT THE SIDE OF THE BED TO EAT BREAKFAST. BED ALARM ON. CALL LIGHT WITHIN REACH. VOICES NO NEEDS AT THIS TIME. WILL CONTINUE WITH PLAN OF CARE
--- NOTE | 2021-01-10 10:05 | NUR ---
OCCUPATIONAL THERAPIST IN WITH PATIENT. HELPING PATIENT WITH A SHOWER.
--- NOTE | 2021-01-10 10:46 | NUR ---
PATIENT HAS SIGNED A RELEASE OF RESPONSIBILITY FOR BED/CHAIR ALARM. PATIENT IS USING CALL LIGHT TO GET HELP TO AND FROM THE BATHROOM. DOES NOT WANT THE ALARM TO GO OFF IF HE IS STANDING BY THE BED TO URINATE.
[2021-01-10 13:52] VITALS: Ht 190.5 cm; Wt 106.1 kg
--- NOTE | 2021-01-10 15:00 | NUR ---
I have reviewed this patient and I concur with the Shift Assessment completed by the Licensed Practical Nurse today this shift.
--- NOTE | 2021-01-10 17:01 | NUR ---
PATIENTS DAUGHTER IN ROOM. PATIENT C/O RIGHT FLANK PAIN. ABDOMEN EXTENED. PATIENRS DAUGHTER STATED THAT SHE FELT LIKE THE HEMILIC TUBE RIGHT POSTERAL CHEST WAS NOT WORKING. THIS NURSE CALLED GLORIA RN IN ICU TO COME AND CHECK PLACEMENT OF TUBE. GLORIA RN CHECK TUBE PLACEMENT. DID NOT FEEL TUBE WAS OUT OF PLACE. PATIENT HAD HAD A LARGE BOWEL MOVEMENT THIS AM. STATED HE HAS NOT HAD A BOWEL MOVEMENT SINCE LAST FRIDAY PRIOR TO HAVING LARGE BOWEL MOVEMENT THIS AM. NURSE UNABLE TO HEAR BOWEL SOUNDS AT THIS TIME. BOWEL SOUNDS ACTIVE ALL FOUR QUADS THIS AM. KUB 2 VIEW ORDERED STAT
--- NOTE | 2021-01-10 18:30 | NUR ---
KUB REPORT IN. NO BOWEL OBSTRUCTION NOTED.
[2021-01-10 21:24] VITALS: BP 117/58
--- NOTE | 2021-01-11 01:41 | NUR ---
SITTING UP AT SIDE OF BED. STATES PAIN LEVEL A 6-7 IN RIGHT SIDE OF CHEST AND ARM. PERCOCET 5 GIVEN. WILL REASSESS. STATES NO FURTHER NEEDS.
[2021-01-11 07:42] VITALS: BP 106/87
--- NOTE | 2021-01-11 08:00 | NUR ---
PT RESTING IN BED WITH EYES OPEN CALL LIGHT IN REACH NO PROBLEMS WILL MONITER
--- NOTE | 2021-01-11 17:09 | NUR ---
PT EATING SUPPER AT BEDSIDE COMPANY IN ROOM CALL LIGHT IN REACH WILL MONITER
--- NOTE | 2021-01-11 19:04 | NUR ---
BEDSIDE SHIFT REPORT, INFORMED PT THAT I WILL BE BACK SHORTLY TO DO ASSESSMENT, PT VERBALIZES UNDERSTANDING, RESP TO ROOM FOR TREATMENT
--- NOTE | 2021-01-11 19:55 | NUR ---
ASSESSMENT PER FLOW SHEET, VS OBTAINED PER SOFTWARE DEVELOPER CONSULTANT, [place] VALVE IN PLACE, GLOVE IN PLACE, PT REPORTS FLATUS, BM YESTERDAY, AND USING URINAL WITH NO DIFFICULTY, PT REQUESTS PAIN MED WHEN DUE, INFORMED PT THAT I WILL ADM IT WHEN DUE, PT VERBALIZES UNDERSTANDING, DENIES FURTER NEEDS, BED IN LOW POSITION, SIDE RAILS X 2, CALL LIGHT IN REACH
[2021-01-11 20:42] VITALS: BP 132/65
--- NOTE | 2021-01-11 21:43 | NUR ---
PT AWAKE, OBTAINED FSBS, ADM 2100 MEDS AND PAIN MED PER MD ORDERS, SEE EMAR
--- NOTE | 2021-01-11 21:56 | NUR ---
ADM INSULIN PER MD ORDERS, SEE EMAR, PT SERVED EDNA CRACKERS FOR SNACK, DENIES FURTHER NEEDS AT THIS TIME
--- NOTE | 2021-01-11 22:30 | NUR ---
PT AWAKE, DENIES PAIN, PROVIDED WARM BLANKET, DENIES FURTHER NEEDS
--- NOTE | 2021-01-12 02:35 | NUR ---
PT RESTING WITH EYES CLOSED, RESP QUIET, NO DISTRESS NOTED, LEFT UNDISTURBED AT THIS TIME
--- NOTE | 2021-01-12 04:29 | NUR ---
PT RAMP SUPERVISOR LIGHT, PT UP IN BR, STATES "I WAS JUST LETTING YOU KNOW THAT I WAS IN HERE", PT HAD LARGE BROWN FORMED BM, PT BACK TO BED, REQUESTED AND SERVED COFFEE, DENIES FURTHER NEEDS AT THIS TIME
--- NOTE | 2021-01-12 06:30 | NUR ---
PT UP IN THERAPY AT THIS TIME, OBTAINED FSBS, ADM 0600/0700 MEDS PER MD ORDERS, SEE EMAR
[2021-01-12 07:26] VITALS: BP 106/51
--- NOTE | 2021-01-12 07:30 | NUR ---
PT RESTING IN BED WITH EYES OPEN CALL LIGHT IN REACH WILL MONITER
[2021-01-12 07:52] LABS: BASOPHILS 0.2 % (0-2); EOSINOPHILS 5.3 % (0-7); HEMATOCRIT 39.9 % (42.0-54.0); HEMOGLOBIN 13.4 g/dL (13.5-17.5); IMMATURE GRANULOCYTES 1.4 % (0-5); LYMPHOCYTE ABS# 1.23 10x3/uL (1.32-3.57); LYMPHOCYTES 14.5 % (15-50); MCH 31.9 pg (26.0-34.0); MCHC 33.6 g/dL (31.0-37.0); MEAN PLATELET VOLUME 9.9 fL (7.4-10.4); MONOCYTES 10.2 % (2-11); NEUTROPHIL ABS# 5.82 10x3/uL (1.78-5.38); NEUTROPHILS 68.4 % (40-80); PLATELET COUNT 348 10x3/uL (130-400); RDW 13.8 % (11.5-14.5); WBC 8.5 10x3/uL (4.8-10.8)
[2021-01-12 08:07] LABS: ANION GAP 16.6 mmol/L (8-16); CALCIUM 9.3 mg/dL (8.5-10.1); CARBON DIOXIDE 23.9 mmol/L (21.0-32.0); CREATININE - SERUM 1.2 mg/dL (0.6-1.3); POTASSIUM - SERUM 4.5 mmol/L (3.5-5.1)
--- NOTE | 2021-01-12 18:21 | NUR ---
PT RESTING IN BED WITH EYES OPEN CALL LIGHT IN REACH WILL MONITER
[2021-01-12 19:00] VITALS: BP 136/58
--- NOTE | 2021-01-12 19:54 | NUR ---
PATIENT RTECEIVED LAYING IN BED. VITAL SIGNS & ASSESSMENT DONE. TUBE TO RIGHT SIDE INTACT & FUNCTIONAL. BED LOW. CALL LIGHT, URINAL, & BED SIDE TABLE WITHIN REACH. WILL CONTINUE TO MONITOR.
--- NOTE | 2021-01-12 21:30 | NUR ---
PATIENT USED BATHROOM CALL LIGHT FOR ASSIST. PATIENT HAD VOID & BM IN TOILET. PATIENT WASHED HANDS & RETURNED TO LOW BED. BEDSIDE TABLE, CALL LIGHT, & URINAL WITHIN REACH. WILL CONTINUE TO MONITOR.
--- NOTE | 2021-01-13 04:46 | NUR ---
I have reviewed this patient and I concur with the Shift Assessment completed by the Licensed Practical Nurse today this shift.
[2021-01-13 07:00] VITALS: BP 122/60
--- NOTE | 2021-01-13 08:30 | NUR ---
HE IS SETTING UP ON THE SIDE OF THE BED EATING BREAKFAST. HE HAS THE HEIMLICH VALVE TO THE RIGHT CHEST AREA, UNDER THIS ARM. PRN GIVEN FOR PAIN- PT IS HERE TO WORK WITH HIM.
[2021-01-13 19:00] VITALS: BP 131/41
--- NOTE | 2021-01-13 19:30 | NUR ---
PATIENT RECEIVED SITTING UP IN BED. ASSESSMENT & VITAL SIGNS DONE. NO C/O PAIN OR DISTRESS. NO DRAINAGE FROM RIGHT SIDE TODAY. NO C/O PAIN OR DISTRESS. ALARM WAIVER SIGNED. PATIENT NOTIFIES STAFF BEFORE GETTING UP FROM TOILET & LOW BED. CALL LIGHT & WALKER WITHIN REACH. WILL CONTINUE TO MONITOR.
--- NOTE | 2021-01-13 20:32 | NUR ---
PATIENT REFUSED HUMALOG DOSE HIGHER THAN OVER 200. PATIENT GIVEN PER HIS REQUEST TO BE GIVEN 8 UNITS. 8 UNITS WAS GIVEN. LANTUS PER ORDER GIVEN. PATIENT ATE 2 PEANUT BUTTER CRACKERS. BED LOW. CALL LIGHT WITHIN REACH. WILL CONTINUE TO MONITOR.
--- NOTE | 2021-01-14 01:00 | NUR ---
I have reviewed this patient and I concur with the Shift Assessment completed by the Licensed Practical Nurse today this shift.
--- NOTE | 2021-01-14 03:08 | NUR ---
PATIENT EYES CLOSED. RESPIRATIONS 18 & EVEN. BED LOW. CALL LIGHT, BEDSIDE TABLE WITHIN REACH. WILL CONTINUE TO MONITOR.
--- NOTE | 2021-01-14 05:22 | NUR ---
PATIENT BATH DAY. RIGHT SIDE COVERED WITH PLASTIC. TOWELS & WASHCLOTHES SETUP IN SHOWER. PATIENT WASHED & BATHED SELF. ASSIST WITH DRY TOWEL, PATIENT DRIED SELF OFF. PATIENT RETURNED TO LOW CLEAN BED. CALL LIGHT, BEDSIDE TABLE, & URINAL WITHIN REACH. WILL CONTINUE TO MONITOR.
--- NOTE | 2021-01-14 07:45 | NUR ---
HE IS LYING IN BED ON HIS LEFT SIDE THIS MORNING. DENIES ANY NEEDS. THE CALL LIGHT LIGHT IS WITHIN REACH. HE HAS THE [place] VALVE TO THE RIGHT CHEST AREA, UNDER HIS ARM.
--- NOTE | 2021-01-14 20:00 | NUR ---
PATIENT RECEIVED LAYING IN BED. ASSESSMENT & VITAL SIGNS DONE. NO C/O PAIN OR DISTRESS AT THIS TIME. BED LOW. CALL LIGHT, BEDSIDE TABLE, & URINAL WITHIN REACH. WILL CONTINUE TO MONITOR.
--- NOTE | 2021-01-14 21:00 | NUR ---
PATIENT REFFUSED TO TAKE OVER 8 UNITS OF HUMALOG. FSBS 201.
--- NOTE | 2021-01-15 03:28 | NUR ---
PATIENT EYES CLOSED. RESPIRATIONS 18 & EVEN. BED LOW. WALKER WITHIN REACH. WILL CONTINUE TO MONITOR.
--- NOTE | 2021-01-15 05:09 | NUR ---
I have reviewed this patient and I concur with the Shift Assessment completed by the Licensed Practical Nurse today this shift.
[2021-01-15 07:00] LABS: CALC OSMOLALITY 278 mosm/kg (275-300); CALCIUM 8.9 mg/dL (8.5-10.1); CARBON DIOXIDE 24.2 mmol/L (21.0-32.0); CHLORIDE - SERUM 105 mmol/L (98-107); GLUCOSE 127 mg/dL (74-106); POTASSIUM - SERUM 4.2 mmol/L (3.5-5.1); SODIUM 138 mmol/L (136-145); UREA NITROGEN 16 mg/dL (7-18); eGFR NON AFRICAN AMERICAN 78 mL/min (90-120)
[2021-01-15 07:41] LABS: BASOPHILS 0.3 % (0-2); EOSINOPHILS 5.3 % (0-7); HEMATOCRIT 38.3 % (42.0-54.0); HEMOGLOBIN 12.8 g/dL (13.5-17.5); IMMATURE GRANULOCYTES 0.8 % (0-5); LYMPHOCYTE ABS# 1.01 10x3/uL (1.32-3.57); LYMPHOCYTES 16.2 % (15-50); MCH 32.2 pg (26.0-34.0); MCHC 33.4 g/dL (31.0-37.0); MCV 96.2 fL (80.0-100.0); MEAN PLATELET VOLUME 10.1 fL (7.4-10.4); MONOCYTES 12.3 % (2-11); NEUTROPHIL ABS# 4.06 10x3/uL (1.78-5.38); NEUTROPHILS 65.1 % (40-80); PLATELET COUNT 322 10x3/uL (130-400); RBC 3.98 10x6/uL (4.20-6.10); RDW 14.1 % (11.5-14.5); WBC 6.2 10x3/uL (4.8-10.8)
--- NOTE | 2021-01-15 08:00 | NUR ---
PT RESTING IN BED WITH EYES OPEN CALL LIGHT IN REACH NO PROBLEMS WILL MONITER
--- NOTE | 2021-01-15 15:10 | NUR ---
Nutrition Re-assessment: Diet: Diabetic PO intake: 100% x all meals Last BM: 01/14/21 Wt: 234# (01/10/21) Meds noted: miralax, SSI, lantus Labs noted: Glu 127(H), POC Glu 188(H) Estimated nutrition needs: 1642-9012 kell (25-30 IBW), 89-107gms protein (1-1.2), 2225-2675mL fluid (or per MD) Nutrition diagnosis: Altered nutrition related lab values r/t T2DM dx AEB elevated blood glucose. Nutrition goals: -PO intake =/>75% meals -Meet fluid needs -Stable weight DHS -Blood glucose to trend near WNL Recommendations/Interventions: -Continue Diabetic diet. Will continue to honor food preferences within diet restrictions. -Will continue to monitor PO intake and wt trend. -RD will follow-up within 7 days.
--- NOTE | 2021-01-15 18:39 | NUR ---
PT RESTING IN BED WITH EYES OPEN CALL LIGHT IN REACH WILL MONITER
--- NOTE | 2021-01-16 01:23 | NUR ---
PT CALLED TO LET ME KNOW THE GLOVE CAME OFF THE END OF THE CHEST TUBE. NO BLEEDING OR DRAINAGE FROM CHEST TUBE AT THIS TIME. ATTEMPTED TO CHANGE TEGADERM AND GAUZE COVERING CHEST TUBE THEY ARE STARTING TO COME OFF AND APPEAR TO HAVE BEEN REINFORCED PREVIOUSLY. PT STATES THAT HE WAS UNDER THE IMPRESSION THAT THE CHEST TUBE WOULD BE REMOVED TODAY AND HE DOES NOT WANT THE DRESSING TO BE CHANGED AT THIS TIME DUE TO THE PAIN IT CAUSES FROM TAKING OFF THE OLD DRESSING AND TAPE. REINFORCED WITH THE LEAST AMOUNT OF TAPE POSSIBLE. HE DENIES PAIN OR NEEDS AT THIS TIME. BED LOW, AND CALL LIGHT WITHIN REACH.
--- NOTE | 2021-01-16 09:30 | NUR ---
SPOKE WITH SHELBY FROM DR ALEXANDRE OFFICE ABOUT THE CONSULT FOR DR AUGUSTIN.SHE SAID HE WAS AWARE OF CONSULT
--- NOTE | 2021-01-16 12:00 | NUR ---
PATIENT ADMITTED TO REHAB FROM ACUTE FLOOR. HIS PCP IS DR. THOMAS. DME AT HOME IS A WALKER AND A BEDSICE COMMODE. DISHCARGE PLANS ARE FOR PATIENT TO RETURN TO HIS HOME. WILL CONTINUE TO FOLLO WITH PATIENT.
--- NOTE | 2021-01-16 18:38 | NUR ---
PT RESTING IN BED WITH EYES OPEN CALL LIGHT IN REACH WILL MONITER
[2021-01-17 07:00] LABS: BASOPHILS 1.3 % (0-2); EOSINOPHILS 4.5 % (0-7); HEMATOCRIT 38.1 % (42.0-54.0); HEMOGLOBIN 12.8 g/dL (13.5-17.5); LYMPHOCYTES 17.3 % (15-50); MCH 31.5 pg (26.0-34.0); MCHC 33.5 g/dL (31.0-37.0); MEAN PLATELET VOLUME 7.5 fL (7.4-10.4); MONOCYTES 10.8 % (2-11); NEUTROPHILS 66.1 % (40-80); PLATELET COUNT 325 10x3/uL (130-400); RBC 4.05 10x6/uL (4.20-6.10); RDW 14.3 % (11.5-14.5); WBC 7.1 10x3/uL (4.8-10.8)
[2021-01-17 07:07] LABS: MCV 94.1 fL (80.0-100.0)
[2021-01-17 07:17] LABS: CALC OSMOLALITY 283 mosm/kg (275-300); CALCIUM 9.3 mg/dL (8.5-10.1); CARBON DIOXIDE 23.4 mmol/L (21.0-32.0); CHLORIDE - SERUM 105 mmol/L (98-107); CREATININE - SERUM 0.9 mg/dL (0.6-1.3); GLUCOSE 146 mg/dL (74-106); POTASSIUM - SERUM 4.4 mmol/L (3.5-5.1); SODIUM 140 mmol/L (136-145); UREA NITROGEN 19 mg/dL (7-18); eGFR NON AFRICAN AMERICAN 89 mL/min (90-120)
--- NOTE | 2021-01-17 07:41 | NUR ---
PATIENT IS ALERT/ORIENT. SITTING UP IN WHEELCHAIR IN ROOM. CALL LIGHT WITHIN REACH. VOICES NO NEEDS AT THIS TIME. WILL CONTINUE WITH PLAN OF CARE
--- NOTE | 2021-01-17 12:25 | NUR ---
PATIENT LYING IN BED WITH SCD'S ON BILATERAL. CALL LIGHT WITHIN REACH. VOICES NO NEEDS AT THIS TIME.
--- NOTE | 2021-01-17 16:00 | NUR ---
I have reviewed this patient and I concur with the Shift Assessment completed by the Licensed Practical Nurse today this shift.
--- NOTE | 2021-01-17 19:03 | NUR ---
DAUGHTER IN ROOM, VISITING. PATIENT STATES NO NEEDS AT THIS TIME.
[2021-01-17 20:05] VITALS: BP 140/60
--- NOTE | 2021-01-17 23:38 | NUR ---
PT NEEDS YE[facility] DRSG CHANGED WAS TOLD [facility] WAS TO CHANGE DRSG, CALLED [facility] FREDDIE SAID THEY ONLY HAD 2 NURSES AND HE WOULD CALL ICU TO SEE IF SOMEONE COULD CHANGE IT. ICU RAGHAV CALLED REHAB CHARGE NURSE AND SAID IF SHE GOT TIME SHE WOULD COME CLEAN AND CHANGE IT, THAT WAS AT 2200.
--- NOTE | 2021-01-18 04:59 | RHP ---
PATIENT: ERENDIRA GONZALEZ MEDICAL RECORD: [id number] ACCOUNT: [id number] LOCATION:[id number] : 50 ADMISSION DATE: 01/09/21 REHABILITATION HISTORY AND PHYSICAL EXAMINATION POST ADMISSION PHYSICIAN EXAMINATION ADMITTING DIAGNOSES: Bullous emphysema, spontaneous pneumothorax. 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 He was seen and evaluated. He has had a brain biopsy in the past secondary to these ailments. The patient had pulmonary and cardiovascular surgery consult on this. He was diagnosed with a right small apical pneumothorax and status post VATS revealed extensive lung adhesions on 12/28/[address] Jain. He had a CT and had a Heimlich valve placed. On 01/08/2021 CT of his chest with postsurgical changes showed an interval decrease in his bullous changes in his chest. Prior to this admission, he lived alone, had 14 steps to enter his home. He was independent with a rollator, did have a [facility] care coming 5 days a week for 3 hours to assist with ADLs. He was using [employer] transportation for appointments, had [employer] deliver his groceries. The patient is currently mid to mod assist with ADLs and ambulation. He is lacking endurance with ambulation, no shortness of breath and requires frequent breaks to go a total of 200 feet. He will require intensive therapy including PT, OT, speech therapy and 24-hour nursing and case management in order to return back to his prior level of function and hopefully return home. We will continue to follow ongoing x-rays to monitor his chest tube and Heimlich valve and work on his impaired mobility, dyspnea on exertion, gait disturbance and decreased range of motion to get him home. COMORBIDITIES: Include COPD, debility, diarrhea, diabetes mellitus, dyspnea, hypertension, neuropathy, peripheral vascular disease. 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 He has got hypertension, got a history of coronary artery disease, peripheral vascular disease, COPD, immune disorders, arthritis and chronic pain. PAST SURGICAL HISTORY: Includes an I&D, brain biopsy, iliac stents and angioplasty. ALLERGIES: ALTACE AND METFORMIN. CURRENT MEDICATIONS: Include Flonase nasal spray daily, he is on aspirin 81 mg daily, Protonix 40 mg daily, Sporanox 300 mg b.i.d., Inderal 10 mg b.i.d., he is on a high resistance sliding scale insulin, he is on Lantus 28 units at bedtime, Neurontin 300 mg t.i.d., saline nasal spray, he is on glucose replacement protocol, budesonide 0.5 mg b.i.d., he is on Zofran 4 mg every 4 hours p.r.n., Percocet 5/325 mg one tab every 4 hours p.r.n. and DuoNeb updrafts. HABITS: No current alcohol or tobacco use. FAMILY HISTORY: Noncontributory. SOCIAL HISTORY: The patient hopes to return back home and get back to his prior level of functioning. HISTORY AND PHYSICAL [id number] ERENDIRA GONZALEZ REVIEW OF SYSTEMS: GENERAL: Does complain of some weakness and fatigue. HEENT: Does complain of cold, cough and congestion. CARDIOVASCULAR: Denies any chest pain. PHYSICAL EXAMINATION: VITAL SIGNS: Stable. GENERAL: A somewhat obese gentleman in no acute distress upon exam. HEENT: Normocephalic and atraumatic. Mucosa moist. NECK: Supple. No lymphadenopathy. LUNGS: Clear in upper adams. Decreased breath sounds in the bases. Heimlich valve and tube are noted. ABDOMEN: Soft, benign, nondistended. Positive bowel sounds times 4. EXTREMITIES: No clubbing, cyanosis or edema. NEUROLOGIC: He does have some diffuse weakness. LABORATORY DATA: White count is 9.3, H and H of 12 and 37, platelet count is 316. Sodium is 139, potassium 4.1, BUN and creatinine of 15 and 1.0 and blood sugar is 135. ASSESSMENT: This is a 70-year-old gentleman admitted to the rehab with a working diagnosis bullous emphysema with spontaneous pneumothorax along with placement of chest tube and Heimlich valve. The patient has potential to make improvement. We instituted the following multidisciplinary therapies including, not limited to physical, occupational, respiratory speech, nutritional services, prosthetics and orthotics. Given his complex medical condition and risk for more complications, rehabilitation services cannot be provided at a low level of care such as [facility] facility. PLAN: 1. Admit to [facility] for inpatient therapy to include the following disciplines; A. Physical therapy to improve gait, all transfer skills and bed mobility to a modified independent level. B. Occupational therapy to improve activities of daily living. C. Case management to help with discharge planning and placement options. D. Nutrition to assist with nutritional needs. E. Rehabilitation nursing to assist in monitoring the patient's underlying medical condition and to assist with any type of bowel or bladder management. 2. The patient's current medication and Medicare to be continued. 3. The patient will be placed on standard fall precautions. 4. The patient's estimated length of stay is approximately 7-10 days. 5. We will discuss the patient during care team staff meeting at noon today and we will continue on home medications and other meds were appropriate. TRANSINT:[id number] Voice Confirmation ID: [id number] DOCUMENT ID: [id number] 01/12/2021 chau MOYER notes whether there has been none or any medical/functional change since admission: - No change since preadmission screen. COMFORT attests patient continues to be appropriate for IRF: HISTORY AND PHYSICAL [id number] ERENDIRA GONZALEZ - Continues to be appropriate. LISA FINK MD at 0459 CC: [id number] DICTATION DATE: 01/10/21 0901 PARTS SALVAGER: 01/10/21 1019 ADM IN [place] [id number] [place] [address]
[2021-01-18 07:32] VITALS: BP 124/51
--- NOTE | 2021-01-18 09:00 | NUR ---
HE IS SETTING ON THE SIDE OF THE BED. HE HAS THE HEIMLICH VALVE CHEST TUBE TO THE RIGHT SIDE, UNDER HIS ARM. THE DRESSING IS LOOSE, AND IT SMELLS, THE SKIN IS RED AT THE INSERTION SITE. THE CALL LIGHT IS WITHIN REACH,
--- NOTE | 2021-01-18 11:25 | NUR ---
GRANT BOCANEGRA, FROM ICU CHANGED THE CHEST TUBE DRESSING. THE SITE IS RED, THE SUTURE IS INTACT. THE CALL LIGHT IS WITHIN REACH.
--- NOTE | 2021-01-18 13:59 | NUR ---
NAIDA RYAN FOR DR. AUGUSTIN TOOK THE GLOVE OFF THE CHEST TUBE HEIMLICH VALVE.
[2021-01-18 20:23] VITALS: BP 125/54
--- NOTE | 2021-01-18 21:48 | NUR ---
PATIENT GIVEN PERCOCET 5 FOR GENERALIZED PAIN 7 OF 10 AT 21:18, TOLERATED WELL REASSESSED AT 0 PAIN AT 2148.
--- NOTE | 2021-01-18 22:52 | NUR ---
RECIEVED PATIENT SITTING IN CHAIR, BED IS IN LOW LOCKED POSITION, SIDERAILS UP X2 , CALL LIGHT IN REACH, PATIENT HAS CHEST TUBE UNDER RIGHT ARM WITH A HEIMLICH VALVE, DRESSING CLEAN DRY AND INTACT, WILL CONTINUE TO MONITOR.
--- NOTE | 2021-01-19 03:56 | NUR ---
PATIENT UP IN WHEELCHAIR PLAYING GAME ON HIS COMPUTER, WILL CONTINUE TO MONITOR.
--- NOTE | 2021-01-19 03:56 | NUR ---
PATIENT GIVE PERCOCET-5 FOR PAIN AT 01:21, TOLARATED WELL.
[2021-01-19 05:56] LABS: BASOPHILS 0.7 % (0-2); EOSINOPHILS 5.3 % (0-7); HEMATOCRIT 37.7 % (42.0-54.0); HEMOGLOBIN 12.8 g/dL (13.5-17.5); LYMPHOCYTES 18.6 % (15-50); MCH 31.9 pg (26.0-34.0); MCHC 33.8 g/dL (31.0-37.0); MCV 94.2 fL (80.0-100.0); MEAN PLATELET VOLUME 7.6 fL (7.4-10.4); MONOCYTES 10.2 % (2-11); NEUTROPHILS 65.2 % (40-80); PLATELET COUNT 286 10x3/uL (130-400); RDW 14.2 % (11.5-14.5); WBC 7.4 10x3/uL (4.8-10.8)
[2021-01-19 06:10] LABS: ANION GAP 13.4 mmol/L (8-16); CALCIUM 9.2 mg/dL (8.5-10.1); CARBON DIOXIDE 24.7 mmol/L (21.0-32.0); CREATININE - SERUM 1.1 mg/dL (0.6-1.3); POTASSIUM - SERUM 4.1 mmol/L (3.5-5.1)
[2021-01-19 07:57] VITALS: BP 130/61
--- NOTE | 2021-01-19 09:03 | NUR ---
HE IS SETTING ON THE SIDE OF THE BED. THE CHEST TUBE DRESSING IS LOOSE. I REINFORECED IT. CARDIO IS GOING TO ADDRESS THE CHEST TUBE TODAY. THE CALL LIGHT IS WITHIN REACH.
--- NOTE | 2021-01-19 14:00 | NUR ---
TAKEN TO X RAY.
--- NOTE | 2021-01-19 20:00 | NUR ---
PATIENT RECEIVED SITTING UP IN BED. ASSESSMENT & VITAL SIGNS DONE. C/O PAIN TO RIGHT SIDE. PAIN MEDICATION TO BE GIVEN. PEANUT BUTTER CRACKERS GIVEN FOR A SNACK. RIGHT SIDE CHEST TUBE INTACT. BED LOW. CALL LIGHT, BEDSIDE TABLE, URINAL WITHIN REACH. WILL CONTINUE TO MONITOR.
[2021-01-19 20:24] VITALS: BP 132/50
--- NOTE | 2021-01-20 02:00 | NUR ---
I have reviewed this patient and I concur with the Shift Assessment completed by the Licensed Practical Nurse today this shift.
--- NOTE | 2021-01-20 04:03 | NUR ---
PATIENT EYES CLOSED. RESPIRATIONS 18 & EVEN. BED LOW. CALL LIGHT & WALKER WITHIN REACH. WILL CONTINUE TO MONITOR.
--- NOTE | 2021-01-20 05:30 | NUR ---
PATIENT REFUSED TO TAKE INSULIN D/T 154 TOO CLOSE TO 150. NOTE IN MAR TO THIS EFFECT. CALL LIGHT WITHIN REACH. WILL CONTINUE TO MONITOR.
--- NOTE | 2021-01-20 08:00 | NUR ---
PT RESTING IN BED WITH EYES OPEN CALL LIGHT IN REACH WILL MONITER
[2021-01-20 09:26] VITALS: BP 129/61
--- NOTE | 2021-01-20 17:49 | NUR ---
PT RESTING IN BED WITH EYES OPEN CALL LIGHT IN REACH WILL MONITER
--- NOTE | 2021-01-20 19:16 | NUR ---
PATIENT RECEIVED LAYING IN BED. SCD'S ON PER PATIENT REQUEST, & HE PLACES THEM ON. ASSESSMENT & VITAL SIGNS DONE. NO C/O PAIN OR DISTRESS. BESIDE TABLE & CALL LIGHT WITHIN REACH. WILL CONTINUE TO MONITOR.
--- NOTE | 2021-01-20 20:00 | NUR ---
PATIENT RECEIVED SITING UP ON SIDE OF BED. ASSESSMENT & VITAL SIGNS DONE. NO C/O PAIN OR DISTRESS. BED LOW. CALL LIGHT, BED SIDE TABLE, & URINAL WITHIN REACH. WILL CONTINUE TO MONITOR.
--- NOTE | 2021-01-21 02:00 | NUR ---
I have reviewed this patient and I concur with the Shift Assessment completed by the Licensed Practical Nurse today this shift.
--- NOTE | 2021-01-21 02:19 | NUR ---
PATIENT CONSENTED TO TAKE HIS SHOWER. PATIENT AMBULATED USING ROLLING WALKER TO BATHROOM. RIGHT SIDE DRESSING & VALVE ENCLOSED IN A BG & TAPED. PATIENT SHOWER SETUP. INDEPENDENT WASHING BODY. ASSIST WITH BACK. PATIENT HIBICLENS TO ALL AREA BUT MARLEN AREA, BUTTOCKS & UNDER ARMS. PATIENT RINSED & WASHED HAIR. RINSED OFF HEAD & BODY. DRIED SELF. PATIENT STOOD UP ON DRY FLOOR. GOWN & BRIEF ON. PATIENT SOCKS ON. RETURNED TO CLEAN LOW BED. CALL LIGHT & BEDSIDE TABLE WITHIN REACH. WILL CONTINUE TO MONITOR.
--- NOTE | 2021-01-21 02:23 | NUR ---
PATIENT C/O RIGHT SIDE PAIN. PAIN MEDICATION GIVEN FOR 8/10 PAIN LEVEL. WILL CONTINUE TO MONITOR.
[2021-01-21 07:54] VITALS: BP 117/57
--- NOTE | 2021-01-21 08:00 | NUR ---
PT RESTING IN BED WITH EYES OPEN CALL LIGHT IN REACH WILL MONITER
--- NOTE | 2021-01-21 18:02 | NUR ---
PT RESTING IN BED WITH EYES OPEN CALL LIGHT IN REACH WILL MONITER
--- NOTE | 2021-01-21 19:16 | NUR ---
PATIENT RECEIVED LAYING IN BED. ASSESSMENT & VITAL SIGNS DONE. BED LOW. CALL LIGHT WITHIN REACH. WILL CONTINUE TO MONITOR.
[2021-01-21 19:46] VITALS: BP 92/50
--- NOTE | 2021-01-21 23:39 | NUR ---
I have reviewed this patient and I concur with the Shift Assessment completed by the Licensed Practical Nurse today this shift.
--- NOTE | 2021-01-22 00:30 | NUR ---
PATIENT USED CALL LIGHT. PATIENT WANTED PAIN MEDICATION. WILL SEE IF IT IS TIME. PATIENT GIVEN PAIN MEDICATION. WILL CONTINUE TO MONITOR. BED LOW. CALL LIGHT WITHIN REACH. WILL CONTINUE TO MONITOR.
--- NOTE | 2021-01-22 03:45 | NUR ---
PAIN MEDICATION EFFECTIVE. PATIENT BACK IN LOW BED. EYES CLOSED. CALL LIGHT WITHIN REACH. WILL CONTINUE TO MONITOR.
[2021-01-22 07:17] VITALS: BP 117/56
[2021-01-22 08:26] LABS: BASOPHILS 0.7 % (0-2); EOSINOPHILS 5.7 % (0-7); HEMATOCRIT 37.5 % (42.0-54.0); HEMOGLOBIN 12.7 g/dL (13.5-17.5); LYMPHOCYTES 18.9 % (15-50); MCH 32.1 pg (26.0-34.0); MCV 94.4 fL (80.0-100.0); MEAN PLATELET VOLUME 7.9 fL (7.4-10.4); MONOCYTES 10.2 % (2-11); NEUTROPHILS 64.5 % (40-80); PLATELET COUNT 287 10x3/uL (130-400); RBC 3.97 10x6/uL (4.20-6.10); RDW 14.4 % (11.5-14.5); WBC 6.7 10x3/uL (4.8-10.8)
[2021-01-22 08:35] LABS: CALC OSMOLALITY 274 mosm/kg (275-300); CALCIUM 9.3 mg/dL (8.5-10.1); CARBON DIOXIDE 26.8 mmol/L (21.0-32.0); CHLORIDE - SERUM 102 mmol/L (98-107); GLUCOSE 121 mg/dL (74-106); POTASSIUM - SERUM 4.5 mmol/L (3.5-5.1); SODIUM 136 mmol/L (136-145); UREA NITROGEN 17 mg/dL (7-18); eGFR NON AFRICAN AMERICAN 78 mL/min (90-120)
--- NOTE | 2021-01-22 09:30 | NUR ---
Nutrition Re-Assessment Diet: Diabetic PO intake: 100% x all Last BM: 01/20/21 Wt: 234# (01/10/21) Meds noted: probiotics, abx, miralax, SSI, lantus Labs noted: Glu 121(H) Estimated nutrition needs: 2225-2675cal (25-30kcal/kg IBW), 89-107gms protein (1-1.2gms/kg), 2225-2675mL fluid (or per MD) Nutrition diagnosis: Altered nutrition related lab values r/t DM dx AEB elevated blood glucose. Nutrition goals: -PO intake =/>75% meals -Meet fluid needs -Stable weight DHS -Blood glucose to trend WNL Recommendations/Interventions: -Recommend continue diabetic diet. Will continue to honor food preferences within diet restrictions. -RD will follow-up within 7 days.
--- NOTE | 2021-01-22 09:52 | NUR ---
HE TOOK HIS MEDICATIONS WITHOUT ANY PROBLEMS. I REINFORCED HIS HEIMLICH VALVE TO THE RIGHT SIDE, THE DRESSING WAS LOOSE. HE HAS A SCAB ON HIS 2ND TOE ON THE LEFT FOOT. THE CALL LIGHT IS WITHIN REACH.
[2021-01-22 16:18] VITALS: BP 123/47
--- NOTE | 2021-01-22 19:09 | NUR ---
AWAKE AND ALERT. RESTING IN BED WITH RESPIRATIONS UNLABORED. NO DISTRESS NOTED. HIEMLAC TUBE IN PLACE TO RIGHT CHEST. SCD'S ON BILATERAL LOWER LEGS.
[2021-01-22 20:00] VITALS: BP 115/56
--- NOTE | 2021-01-23 00:14 | NUR ---
HAD AN INCONTIENT EPISODE OF URINE. ASSISTED TO CHANGE HIS BRIEF AND BED CLOTHES AND BED LINENS ALSO CHANGED. ASSISTED BACK TO BED. HEIMLAC VALVE IN PLACE.
--- NOTE | 2021-01-23 02:20 | NUR ---
SLEEPING WITH RESPIRATIONS UNLABORED. NO DISTRESS NOTED.
--- NOTE | 2021-01-23 05:03 | NUR ---
QUIET HOURS. RESTING IN BED. RESPIRATIONS UNLABORED. HEIMLAC VAVLE IN PLACE. NO ACUTE DISTRESS NOTED. CALL LIGHT IN REACH.
[2021-01-23 07:34] VITALS: BP 121/58
--- NOTE | 2021-01-23 08:00 | NUR ---
HE IS SETTING ON THE SIDE. HE HAS A CHEST TUBE TO THE RIGHT SIDE, HEIMLICH VALVE, THE DRESSING IS CLEAN AND DRY AND INTACT. HIS IS DISCHARGING TODAY. THE CALL LIGHT IS WITHIN REACH.
--- NOTE | 2021-01-23 10:03 | NUR ---
PATIENT DISCHARGING HOME TODAY WITH FAMILY. [facility] WILL RESUME THERAPY AT HOME. NO NEW DME NEEDED AT THIS TIME. INDRA SIGNED, IMM SERVED AND EXPLAINED, ONE GIVEN TO PATIENT AND ONE FILED IN CHART. DR. THOMAS 02/01/21 @ 11:10, DR. AUGUSTIN 01/31/21 @ 1:15. DISCHARGE INSTRUCTIONS FAXED TO PCP, HOME [facility] AND REVIEWED WITH PATIENT. NO COMPARE DATA REVIEWED WITH PATIENT PER HIS REQUEST.
[2021-01-23] MEDS ORDERED: ALDACTONE25 MG PO (10:59)
[2021-01-23] MEDS ORDERED: PERCOCET 5-3251 TAB PO (11:00)
--- NOTE | 2021-01-23 12:56 | NUR ---
PAPERWORK GONE OVER WITH THE PATIENT AND HIS SON-IN-LAW. A WRITTEN PRESCRIPTION FOR [facility] IS IN THE PAPERWORK. [id number] ANSWERED. EDUCATED TO HIM THE IMPORTANCE OF NOT GETTING THE CHEST TUBE WET. HE WAS TAKEN TO THE FRONT DOOR VIA WHEELCHAIR.
== END 2021-01-23 13:44 | disposition home health service (06) | DRG 191 ==
LOC: D.REHAB 17:36
PROVIDERS: ADMIT Emergency Medicine; ATTEND Emergency Medicine
DX: J43.9 Emphysema, unspecified (principal); J93.83 Other pneumothorax; R53.81 Other malaise; R19.7 Diarrhea, unspecified; I10 Essential (primary) hypertension; I73.9 Peripheral vascular disease, unspecified; E11.40 Type 2 diabetes mellitus with diabetic neuropathy, unspecified; R06.00 Dyspnea, unspecified

== ENCOUNTER → 2021-01-30 16:03 | Outpatient (CLI) | payer MEDICARE ==
[2021-01-10 13:52] VITALS: BMI 29.2
== END | disposition home or self-care (01) ==
LOC: D.RAD 16:03
PROVIDERS: ATTEND Thoracic Surgery (Cardiothoracic Vascular Surgery)
DX: Z46.89 Encounter for fitting and adjustment of other specified devices (principal)

== ENCOUNTER → 2021-02-06 15:12 | Outpatient (CLI) | payer MEDICARE ==
[2021-01-10 13:52] VITALS: BMI 29.2
== END | disposition home or self-care (01) ==
LOC: EDSTATUS 12:05 → D.RAD 13:08
PROVIDERS: ATTEND Thoracic Surgery (Cardiothoracic Vascular Surgery)
DX: Z46.82 Encounter for fitting and adjustment of non-vascular catheter (principal)

== ENCOUNTER → 2021-02-21 12:40 | Outpatient (CLI) | payer MEDICARE ==
[2021-01-10 13:52] VITALS: BMI 29.2
== END | disposition home or self-care (01) ==
LOC: D.RAD 12:40
PROVIDERS: ATTEND Thoracic Surgery (Cardiothoracic Vascular Surgery)
DX: Z98.890 Other specified postprocedural states (principal)

== ENCOUNTER → 2021-02-28 10:18 | Outpatient (CLI) | payer MEDICARE ==
[2021-01-10 13:52] VITALS: BMI 29.2
== END | disposition home or self-care (01) ==
LOC: D.RAD 10:18
PROVIDERS: ATTEND Thoracic Surgery (Cardiothoracic Vascular Surgery)
DX: Z98.890 Other specified postprocedural states (principal)